=== PATIENT | male | born 1975 | race Caucasian/White ===

== ENCOUNTER 2018-09-04 19:04 | Inpatient (IN) | payer OTHER ==
[~2018-09-04] VITALS: Ht 167.6 cm; Wt 157.7 kg
[~2018-09-04 19:04] MED LIST: BENA40TA54 PO; GLYBURIDE; HYDROXYZINE; LORA-441 PO; MTF1000T PO; PARO10TA76 PO; ZOLP10TA5 PO; [UNRECOGNIZED DRUG - OTHER]
[2018-09-04] MEDS ORDERED: PIPER-TAZO 3.375 GM IV (PMX) 100 ML IVPB STA (19:38)
[2018-09-04] MEDS ORDERED: CLINDAMYCIN 900 MG/D5W (PMX) 50 ML IVPB STA (19:38)
[2018-09-04] MEDS ORDERED: VANCOMYCIN 1 GM (PMX) 250 ML IVPB STA (19:38)
[2018-09-04] MEDS ORDERED: SODIUM CHLORIDE 0.9% 1L BAG IV* STA (21:55)
--- NOTE | 2018-09-04 21:57 | ERD ---
ER Documentation Chief Complaint Chief Complaint right outer sole wound with increased drainage and redness. HPI Very pleasant 43-year-old gentleman history of diabetes who presents to the emergency room with progressive erythema warmth tenderness and swelling with draining wound to the lateral aspect of the right lower extremity and foot. The patient is currently being treated with oral antibiotics without improvement. He describes mild throbbing discomfort that is approximately 2 out of 10. 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 ROS All systems reviewed and are negative except as per history of present illness. Medications Home Meds Reported Medications Lorazepam* (Ativan*) 0.5 Mg Tablet, 0.5 MG PO PRN 02/16/13 [Levotheroxide] No Conflict Check, 50 MCG 11/18/12 Benazepril Hcl* (Lotensin*) 40 Mg Tablet, 40 MG PO DAILY 11/18/12 [Glyburide] No Conflict Check, 5 MG DAILY 11/18/12 Metformin* (Glucophage*) 1,000 Mg Tablet, 1000 MG PO DAILY 11/18/12 [Hydroxyzine] No Conflict Check, 25 MG HS 11/18/12 Zolpidem Tartrate* (Zolpidem Tartrate*) 10 Mg Tablet, 10 MG PO HS 11/18/12 Paroxetine Hcl* (Paroxetine*) 10 Mg Tablet, 10 MG PO HS 11/18/12 Allergies Allergies: Coded Allergies: gabapentin (Verified Allergy, Severe, SUICIDAL THOUGHS, 02/16/13) morphine (Verified Allergy, Intermediate, 02/16/13) pregabalin (Verified Allergy, Mild, SUICIDAL, 02/16/13) Uncoded Allergies: LYRICA (Allergy, Intermediate, WEIGHT GAIN, 01/01/13) TEGAMYCEIN (Allergy, Mild, 11/18/12) TEGAMYCIN (Allergy, 02/16/13) PMhx/Soc History of Surgery: Yes (TONSILLECTOMY, BILAT FOOT.) Anesthesia Reaction: Yes (MUSCLE CRAMPS) Hx Neurological Disorder: Yes (NUROPATHY,) Hx Respiratory Disorders: No Hx Cardiac Disorders: No Hx Psychiatric Problems: No Hx Miscellaneous Medical Probl: Yes (DM) Hx Alcohol Use: No Hx Substance Use: No Hx Tobacco Use: No Smoking Status: Never smoker FmHx Family History: No diabetes Physical Exam Vitals Vital Signs Date Temp Pulse Resp B/P (MAP) Pulse Ox O2 O2 Flow FiO2 Time Delivery Rate 09/04/18 99.9 105 18 139/76 98 19:09 (97) Physical Exam General: Well developed, well nourished, no acute distress Head: Normocephalic, atraumatic. Eyes: Pupils equally reactive, EOM intact ENT: Moist mucous membranes Neck: Supple, no lymphadenopathy Respiratory: Lungs clear bilaterally, no distress Cardiovascular: RRR, no murmurs, rubs, or gallops Abdominal: Soft, non-tender, non-distended, no peritoneal signs : Deferred MSK: Right foot is edematous with erythema warmth and tenderness without crepitus, draining wound to the right lateral aspect of the foot. 5/5 strength Neurologic: Alert and oriented, moving all extremities, normal speech, no focal weakness, no cerebellar signs Skin: As noted above Psych: Normal mood Result Diagram: 09/04/18204009/04/182040 Results 24 hrs Laboratory Tests Test 09/04/18 20:37 09/04/18 20:41 POC Venous Lactate 1.3 mmol/L White Blood Count 18.8 10^3/ul Red Blood Count 4.84 10^6/ul Hemoglobin 11.0 g/dl Hematocrit 37.0 % Mean Corpuscular Volume 76.4 fl Mean Corpuscular Hemoglobin 22.7 pg Mean Corpuscular Hemoglobin Concent 29.7 g/dl Red Cell Distribution Width 15.1 % Platelet Count 275 10^3/UL Mean Platelet Volume 14.0 fl Immature Granulocytes % 0.600 % Neutrophils % 84.8 % Lymphocytes % 8.0 % Monocytes % 5.9 % Eosinophils % 0.5 % Basophils % 0.2 % Nucleated Red Blood Cells % 0.0 /100WBC Immature Granulocytes # 0.120 10^3/ul Neutrophils # 15.9 10^3/ul Lymphocytes # 1.5 10^3/ul Monocytes # 1.1 10^3/ul Eosinophils # 0.1 10^3/ul Basophils # 0.0 10^3/ul Nucleated Red Blood Cells # 0.0 10^3/ul Prothrombin Time 15.5 Sec Prothrombin Time Ratio 1.2 INR International Normalized Ratio 1.22 Activated Partial Thromboplast Time 41.2 Sec Sodium Level 134 mmol/L Potassium Level 4.2 mmol/L Chloride Level 98 mmol/L Carbon Dioxide Level 25 mmol/L Anion Gap 11 Blood Urea Nitrogen 37 mg/dl Creatinine 1.49 mg/dl Est Glomerular Filtrat Rate mL/min 51 mL/min Glucose Level 228 mg/dl Calcium Level 9.3 mg/dl C-Reactive Protein 21.1 mg/dl Current Medications Medications Dose Sig/Jessica Start Time Status Last (Trade) Ordered Route PRN Stop Time Admin Dose Reason Admin Vancomycin 250 ml @ ONCE STAT 09/04/18 DC HCl 125 mls/hr IVPB 19:38 09/04/18 21:37 Clindamycin 50 ml @ 50 ONCE STAT 09/04/18 DC 09/04/18 HCl/ mls/hr IVPB 19:38 21:24 Dextrose 09/04/18 20:37 Piperacillin 100 ml @ ONCE STAT 09/04/18 DC 09/04/18 Sod/ 200 mls/hr IVPB 19:38 20:45 Tazobactam 09/04/18 20:07 Sod Ondansetron 4 mg BRIDGE ORDER 09/04/18 HCl (Zofran PRN IV 22:00 Inj) NAUSEA/VOMITI 09/05/18 21:59 NG 650 mg ER BRIDGE 09/04/18 Acetaminophen PRN PO 22:00 (Tylenol .MILD PAIN 09/05/18 21:59 Tab) 1-3 OR TEMP Sodium 1,910 ml BOLUS OVER 2 09/04/18 UNV Chloride HOURS STAT 21:55 (NS) IV* 09/04/18 21:56 Procedures/MDM EKG, MONITORS, & DIAGNOSTIC IMAGING: EKG: I reviewed and interpreted a 12-lead EKG. Rhythm: ST ST Changes: No contiguous ST segment elevations T waves: No contiguous T wave inversions Impression: No evidence of acute cardiac ischemia X-ray right foot: Formal read pending LAB INTERPRETATION: I reviewed the laboratory testing and it shows leukocytosis, elevated CRP, normal lactic acid, hyperglycemia without evidence of diabetic ketoacidosis, mild renal insufficiency MEDICAL DECISION MAKING: Patient presents with what appears to be failure of outpatient oral therapy for an infected right foot diabetic foot ulcer. Screening for osteomyelitis is necessary. ER COURSE: * The patient presents with failure of outpatient antibiotic therapy. The patient had blood cultures prior to antibiotics. * The patient was noted to have elevated white count therefore qualifying for sepsis. For IV fluids provided at that point. He is him dynamically stable. CONSULTATION: None DISPOSITION PLAN: Accepting care team and consultations: I discussed the current laboratory data, diagnostic imaging and emergency care provided. Admitting team: Dr. Islas Admitting team indication: Insurance directed Sepsis Documentation: Patient's infectious symptoms have not stabilized and the patient is at risk of rapid decompensation. The patient will be admitted for careful hydration, antibiotic therapy, and infectious source control. SEVERE SEPSIS CRITERIA: Infectious source: Right foot diabetic wound End organ damage indicated by: SEPSIS MANAGEMENT Time of recognition of sepsis: 2104 with CBC result. Time of recognition of severe sepsis: No severe sepsis at this time. Time of recognition of septic shock: No septic shock at this time. 3 HOUR BUNDLE Blood cultures x 2 before broad-spectrum antibiotics: Yes 30 ml/kg NS bolus initiated Initial lactate less than 2 Repeat lactate pending SEPTIC SHOCK ASSESSMENT: No lactic acid > 4.0 No persistent hypotension (SBP < 90 or 40 mmHg drop, MAP < 65) despite 30 mL/kg IV fluid bolus VOLUME REASSESSMENT FOR SEPTIC SHOCK: The patient does not meet criteria for septic shock in the emergency department at this time PERSISTENT HYPOTENSION TREATMENT: Comfort care no Central line not Required Vasopressor started not required I considered further perfusion assessment with CVP measurement, SCVO2, bedside ultrasound volume assessment, passive leg raise, trial of further fluid bolus. And proceeded with 30 ml/kg fluid bolus of NSS, broad spectrum antibiotics, and admission. CRITICAL CARE Critical care time 35 minutes Emergent fluid management while maintaining close respiratory support. Provision of immediate and broad-spectrum antibiotic therapy. Simultaneous assessment for possible sources in order to direct targeted therapy. Consideration for invasive and chemical support to prevent cardiopulmonary collapse. Critical care time is independent of procedures performed. Departure Diagnosis: Primary Impression: Diabetic ulcer of right foot Diabetic foot ulcer location: midfoot Diabetes mellitus type: type 2 Non- pressure ulcer stage: unspecified non-pressure ulcer stage Qualified Codes: E11.621 - Type 2 diabetes mellitus with foot ulcer; L97.419 - Non-pressure chronic ulcer of right heel and midfoot with unspecified severity Additional Impressions: Sepsis Sepsis type: sepsis due to unspecified organism Qualified Codes: A41.9 - Sepsis, unspecified organism Acute renal insufficiency Hyperglycemia Condition: Stable SVITLANA WEBSTER MD Sep 04, 2018 21:57
[2018-09-04] MEDS ORDERED: ONDANSETRON 4 MG INJ IV PRN ×2 (22:00→23:30)
[2018-09-04] MEDS ORDERED: ACETAMINOPHEN 325 MG TAB PO PRN ×2 (22:00→23:30)
[2018-09-04 23:00] VITALS: BP 98/60; PULSE 104; RESP 18
[2018-09-04] MEDS ORDERED: LORA1TAB PO (23:02)
[2018-09-04] MEDS ORDERED: RIVA20TA5 PO (23:02)
[2018-09-04] MEDS ORDERED: SITA100T11 PO (23:02)
[2018-09-04] MEDS ORDERED: DULO60CA6 PO (23:02)
[2018-09-04] MEDS ORDERED: LEVO50TA7 PO (23:02)
[2018-09-04] MEDS ORDERED: LISI-471 PO (23:02)
[2018-09-04] MEDS ORDERED: CIPR500T4 PO (23:02)
[2018-09-04] MEDS ORDERED: NOVO3I SC (23:02)
[2018-09-04] MEDS ORDERED: CEPH500C PO (23:02)
[2018-09-04] MEDS ORDERED: INSU100I33 SC (23:02)
[2018-09-04 23:07] VITALS: Ht 167.6 cm; Wt 157.7 kg
[2018-09-04] MEDS ORDERED: TEST5GEL TD (23:07)
[2018-09-04] MEDS ORDERED: TEST2.5G5 TD (23:07)
--- NOTE | 2018-09-04 23:26 | HP ---
Date/Time of Note Date/Time of Note DATE: 09/04/18 TIME: 23:26 Assessment/Plan VTE Prophylaxis Pharmacological prophylaxis: heparin Lines/Catheters IV Catheter Type (from Nrsg): Saline Lock Assessment/Plan Assessment/Plan 1. Bilateral foot infection, right worse than left -IV antibiotic -Follow-up podiatry recommendations 2. Sepsis: As evidenced by leukocytosis and tachycardia: Secondary to above -Continue antibiotic, follow-up culture results. Podiatry following 3. Hypertension: Continue meds. Adjust as needed 4. Diabetes: Continue meds 5. Depression: Continue Cymbalta 6. Hypothyroidism: Synthroid 7. Acute renal insufficiency: Continue IV fluid. Expect improvement in a.m., otherwise renal ultrasound and nephrology consult as well as urine electrolytes Result Diagram: 09/04/18204009/04/182040 Results 24hrs Laboratory Tests Test 09/04/18 20:37 09/04/18 20:41 09/04/18 22:32 POC Venous Lactate 1.3 White Blood Count 18.8 H Red Blood Count 4.84 Hemoglobin 11.0 L Hematocrit 37.0 L Mean Corpuscular Volume 76.4 L Mean Corpuscular Hemoglobin 22.7 L Mean Corpuscular Hemoglobin Concent 29.7 L Red Cell Distribution Width 15.1 H Platelet Count 275 Mean Platelet Volume 14.0 H Immature Granulocytes % 0.600 H Neutrophils % 84.8 H Lymphocytes % 8.0 L Monocytes % 5.9 Eosinophils % 0.5 Basophils % 0.2 Nucleated Red Blood Cells % 0.0 Immature Granulocytes # 0.120 H Neutrophils # 15.9 H Lymphocytes # 1.5 Monocytes # 1.1 H Eosinophils # 0.1 Basophils # 0.0 Nucleated Red Blood Cells # 0.0 Erythrocyte Sedimentation Rate 58 H Prothrombin Time 15.5 H Prothrombin Time Ratio 1.2 INR International Normalized Ratio 1.22 Activated Partial Thromboplast Time 41.2 H Sodium Level 134 L Potassium Level 4.2 Chloride Level 98 Carbon Dioxide Level 25 Anion Gap 11 Blood Urea Nitrogen 37 H Creatinine 1.49 H Est Glomerular Filtrat Rate mL/min 51 L Glucose Level 228 H Calcium Level 9.3 C-Reactive Protein 21.1 H Lactic Acid Level 1.5 HPI/ROS Admit Date/Time Admit Date/Time Hx of Present Illness This is a 43-year-old male with a history of hypertension, diabetes, hypothyroidism, bilateral foot ulcer with a history of right foot debridement and skin graft. Patient presented to ER complaining of worsening right foot ulcer. He reports that wound has been draining pus. He said he follows up closely with his recreational sports director, Dr. Lunsford. In the ER, x-ray shows the followin. 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 2. Possible ulcers at the plantar aspect of the foot as described. Negative for evidence of aggressive bony destruction or periosteal reaction to indicate acute osteomyelitis. 3. Soft tissue swelling without soft tissue gas may be due to soft tissue infection in the appropriate clinical setting. PMH/Family/Social Past Medical History Past Surgical Hx: other (see hpi) Family History Significant Family History: no pertinent family hx Social History Alcohol Use: none Smoking Status: Never smoker Drug Use: none Exam Constitutional: other (no acute distress) Neck: supple, non-tender Respiratory: normal air movement Cardiovascular: nl pulses Gastrointestinal: soft Extremities: normal pulses Medications Current Medications Ondansetron HCl (Zofran Inj) 4 mg BRIDGE ORDER PRN IV NAUSEA/VOMITING; Start 09/04/18 at 22:00; Stop 09/05/18 at 21:59 Acetaminophen (Tylenol Tab) 650 mg ER BRIDGE PRN PO .MILD PAIN 1-3 OR TEMP; Start 09/04/18 at 22:00; Stop 09/05/18 at 21:59 Coded Allergies: gabapentin (Verified Allergy, Severe, SUICIDAL THOUGHS, 02/16/13) morphine (Verified Allergy, Intermediate, 02/16/13) pregabalin (Verified Allergy, Mild, SUICIDAL, 02/16/13) Uncoded Allergies: LYRICA (Allergy, Intermediate, WEIGHT GAIN, 01/01/13) TEGAMYCEIN (Allergy, Mild, 11/18/12) TEGAMYCIN (Allergy, Unknown, 09/04/18) Social History Smoking Status: Never smoker Exam/Review of Systems Vital Signs Vitals Vital Signs Date Temp Pulse Resp B/P (MAP) Pulse Ox O2 O2 Flow FiO2 Time Delivery Rate 09/04/18 99.5 101 19 140/98 98 Room Air 22:24 (112) NELY CAAL MD Sep 04, 2018 23:26
[2018-09-04] MEDS ORDERED: NACL 0.9% 3 ML SYG IV SCH (23:30)
[2018-09-04] MEDS ORDERED: ALBUTEROL/IPRATROPIUM (NEB) 3 ML AMP HHN PRN (23:30)
[2018-09-04] MEDS ORDERED: HYDROCODONE/APAP (5/325) TAB PO PRN ×2 (23:30)
[2018-09-04] MEDS ORDERED: VANCOMYCIN IV PER PHARMACY XX SCH (23:30)
[2018-09-05] MEDS ORDERED: VANCOMYCIN 1 GM 250 ML IVPB ONE (00:30)
[2018-09-05] MEDS: DULOXETINE 30 MG CAP DR PO SCH ×2 (02:04→22:42)
[2018-09-05] MEDS: ZOLPIDEM 5 MG TAB PO SCH ×2 (02:04→22:42)
[2018-09-05] MEDS: SOD CHLORIDE 0.9% 1,000 ML IV SCH ×3 (02:05→22:53)
[2018-09-05 02:18] VITALS: BP 103/58; PULSE 95; RESP 17
[2018-09-05] MEDS: LORAZEPAM 1 MG TAB PO SCH ×2 (05:07→23:16)
[2018-09-05] MEDS ORDERED: GLUCAGON 1 MG INJ IM PRN (05:30)
[2018-09-05] MEDS ORDERED: GLUCOSE GEL 15 GRAM TUBE BUCCAL PRN (05:30)
[2018-09-05] MEDS ORDERED: DEXTROSE 50% 50 ML SYRINGE IV PRN ×2 (05:30)
[2018-09-05] MEDS ORDERED: GLUCOSE GEL 15 GRAM TUBE PO PRN ×2 (05:30)
[2018-09-05 07:35] VITALS: BP 116/75; PULSE 96; RESP 18
[2018-09-05] MEDS ORDERED: INSULIN GLARGINE [LANTus] (100 UNITS/ML) SYG SC SCH (08:00)
[2018-09-05] MEDS: LINAGLIPTIN 5 MG TABLET PO SCH (08:07)
[2018-09-05] MEDS: CEFEPIME 1GM/50 ML (PMX) 50 ML IVPB SCH ×2 (08:07→21:19)
[2018-09-05] MEDS: LISINOPRIL 20 MG TAB PO SCH (08:08)
[2018-09-05] MEDS: INSULIN ASPART [NOVOLOG] 3 ML PEN SC SCH ×7 (08:10→21:22)
--- NOTE | 2018-09-05 08:26 | CONS ---
DATE OF ADMISSION: 09/04/2018 DATE OF CONSULTATION: 09/05/2018 CHIEF COMPLAINT: Right foot infection. HISTORY OF PRESENT ILLNESS: This is a 43-year-old gentleman with infection to the right foot. He wa s advised to present to the emergency room after failing more antibiotics. He had been on Keflex and ciprofloxacin. He had the presence of fevers. He has a chronic Charcot foot deformity bilateral fee t. History of recurring foot ulceration and has had prior partial amputation of toes. REVIEW OF SYSTEMS: The patient denies any fever, nausea, vomiting. PAST MEDICAL HISTORY: Includes: 1. Diabetes with peripheral neuropathy. 2. Cellulitis. 3. Diabetic foot ulceration. 4. Charcot deformity, bilateral feet and right ankle. This is post-fusion status, left foot. PAST SURGICAL HISTORY: Right fifth metatarsal partial resection, left fifth toe amputation, triple a rthrodesis, left foot. ALLERGIES: 1. GABAPENTIN. 2. MORPHINE. 3. PREGABALIN. 4. LYRICA. SOCIAL HISTORY: Denies any tobacco or alcohol use. FAMILY HISTORY: Denies any diabetes. PHYSICAL EXAMINATION: VITAL SIGNS: Temperature is 98.5, pulse is 95, respiratory rate 17, blood pressure is 103/58, pulse ox is 95%. GENERAL: The patient is alert and oriented, in no acute distress. Regular respiration. Obese. EXTREMITIES: Has a left foot Charcot deformity, plantar ulceration is nearly healed with presence of plantar foot callus, metadductus left foot deformity, right foot with a Charcot foot deformity with ulceration x2 plantar aspect with tracking. There is sanguineous drainage. Wound cultures have been obtained. The patient has localized erythema surrounding the ulceration. No malodor. There is bhakti n. There is 2+ DP, PT pulse bilateral feet. LABORATORIES: WBC 12.6, hemoglobin is 10.6, hematocrit 36.4, platelets 247. Sed rate is 58. Sodium 134, potassium 4.2, chloride 90, CO2 of 25, BUN 37, creatinine 1.49. C-reactive protein 21.1. X-ra ys marked deformity hypertrophic neuropathic joint, hind food, mid foot Lisfranc's joint and no evide nce of bony destruction, periosteal reaction, soft tissue swelling without soft tissue gas. ASSESSMENT: 1. Right foot cellulitis. 2. Right foot edema. 3. Pain. 4. Charcot deformity, bilateral feet. 5. Diabetes type 2 with hyperglycemia. 6. Obesity. PLAN: The patient initiated on vancomycin, cefepime and Zosyn. Obtain wound cultures, wound irrigat ion b.i.d. with Betadine and application of Bactroban and gentamicin ointment alternating. Will lupillo tor. Currently, white count and edema appear to be resolving. If continues, no surgery planned. Co ntinue tight glycemic control while in house. Await culture results. Dictated By: JOSÉ DE LA GARZA DPM RB/NTS Conf#: [id number] DID#: [id number] CC: NELY CAAL MD;*EndCC*
[2018-09-05] MEDS ORDERED: NON-FORMULARY/PATIENT OWN MED (Sitagliptin* (Januvia*) 100 MG) PO SCH (09:00)
[2018-09-05] MEDS: VANCOMYCIN HCL 1.5 GM in SOD CHLORIDE 0.9% 250 ML IVPB SCH ×2 (09:47→22:48)
[2018-09-05] MEDS: MUPIROCIN 2% 22 GM OINT TOP SCH (09:53)
[2018-09-05] MEDS ORDERED: LIDOCAINE 1% (MPF) 5 ML VIAL SC ONE (12:30)
[2018-09-05] MEDS ORDERED: INSULIN ASPART [NOVOLOG] 3 ML PEN SC ONE (12:30)
--- NOTE | 2018-09-05 12:36 | PN ---
Date/Time of Note Date/Time of Note DATE: 09/05/18 TIME: 12:35 Assessment/Plan VTE Prophylaxis Risk score (from Nsg)>0 risk: 3 SCD applied (from Nsg): Yes Pharmacological prophylaxis: LMWH Lines/Catheters IV Catheter Type (from Nrs): Peripheral IV Urinary Cath still in place: No Assessment/Plan Hospital Course SUBJECTIVE:Doing well...No acute distress.. no fevers or chills overnight. OBJECTIVE: Vital signs-see below PHYSICAL EXAM: Constitutional:obese male, not in acute distress. HEENT: Head atraumatic and normocephalic. Eyes: Extraocular muscles intact. Anicteric sclerae. Pupils equal bilaterally, reactive to light. NECK: Supple without lymph node. CHEST: Clear and good breath sounds equally. No wheezing. No rhonchi. HEART: S1, S2. Regular rate and rhythm. ABDOMEN: Soft, nontender. Bowel sounds were present. EXTREMITIES: jose charcot foot. Bilateral foot ulcres, covered w/dressing-c/d/i-no ozzing noted outside. no focal defecit. No cyanosis, clubbing or edema. NEUROLOGIC: Alert and oriented x3. No focal deficit. No sensory deficit. PSYCHOSOCIAL: In a good mood. No signs of depression. INTEGUMENTARY: Moist mucous membranes. Good skin turgor, intact. ASSESSMENT AND PLAN: 43-year-old obese male with history of diabetes, bilateral Charcot deformities, chronic bilateral foot ulcers, DVT,who was advised by his information clerk cashier to get admitted for inpatient workup for worsening Right foot ulcer, failed outpatient antibiotics, also found to have sepsis. 1. Nonhealing right diabetic foot ulcer, failed outpatient antibiotics -Cardiology following and we will follow-up recommendations. Proceed with a PICC line in anticipation for long-term IV antibiotics in light of patient with failed outpatient oral antibiotic regimen. -ID consult -Continue broad-spectrum antimicrobial and follow-up cultures. -Wound care as instructed by information clerk cashier. 2. Sepsis secondary to #1. -Treatment as above. Follow-up cultures. 3. Type 2 diabetes, poorly controlled -Diabetic education. Uptitrate insulin regimen for adequate glycemic control. 4. Left foot ulcer, nearly healed -Continue monitoring. 5. Anemia, likely iron deficient plus chronic inflammation. -Stable H&H, does not require transfusion of blood products at present. We will also obtain iron panel regardless. 6. Essential hypertension. -Continue lisinopril. good control. 7. Depression -On Cymbalta 8. Hypothyroidism -On Synthroid. 9. Hx DVT left leg -According to patient, this was diagnosed 4 years ago and he has been taking anticoagulation since then. At this time, I recommend obtaining ultrasound to check for any blood clot to see whether patient needs to be anticoagulated or not. -For now, we will continue with Xarelto. DVT prophylaxis:Xeralto PUD prophylaxis: Not indicated Disposition: Continue current management. Continue wound care and follow-up podiatry recommendations. Patient was seen in collaboration with Dr. Whittaker. Result Diagram: 09/05/1861209/[id number]/18612 Results 24hrs Laboratory Tests Test 09/04/18 20:37 09/04/18 20:41 09/04/18 22:32 09/05/18 06:13 POC Venous Lactate 1.3 White Blood Count 18.8 H 12.6 #H Red Blood Count 4.84 4.69 L Hemoglobin 11.0 L 10.6 L Hematocrit 37.0 L 36.4 L Mean Corpuscular 76.4 L 77.6 L Volume Mean Corpuscular 22.7 L 22.6 L Hemoglobin Mean Corpuscular 29.7 L 29.1 L Hemoglobin Concent Red Cell 15.1 H 15.1 H Distribution Width Platelet Count 275 247 Mean Platelet Volume 14.0 H 13.2 H Immature 0.600 H 0.700 H Granulocytes % Neutrophils % 84.8 H 83.5 H Lymphocytes % 8.0 L 9.4 L Monocytes % 5.9 5.5 Eosinophils % 0.5 0.6 Basophils % 0.2 0.3 Nucleated Red Blood 0.0 0.0 Cells % Immature 0.120 H 0.090 H Granulocytes # Neutrophils # 15.9 H 10.5 H Lymphocytes # 1.5 1.2 Monocytes # 1.1 H 0.7 Eosinophils # 0.1 0.1 Basophils # 0.0 0.0 Nucleated Red Blood 0.0 0.0 Cells # Erythrocyte 58 H Sedimentation Rate Prothrombin Time 15.5 H Prothrombin Time 1.2 Ratio INR International 1.22 Normalized Ratio Activated 41.2 H Partial Thromboplast Time Sodium Level 134 L 138 Potassium Level 4.2 4.4 Chloride Level 98 101 Carbon Dioxide Level 25 25 Anion Gap 11 12 Blood Urea Nitrogen 37 H 32 H Creatinine 1.49 H 1.11 Est Glomerular 51 L > 60 Filtrat Rate mL/min Glucose Level 228 H 223 H Calcium Level 9.3 8.4 C-Reactive Protein 21.1 H Lactic Acid Level 1.5 1.0 Hemoglobin A1c 8.9 H Phosphorus Level 4.1 Magnesium Level 1.7 Total Bilirubin 0.6 Direct Bilirubin 0.00 Indirect Bilirubin 0.6 Aspartate Amino 22 Transf (AST/SGOT) Alanine 25 Aminotransferase (AL T/SGPT) Alkaline Phosphatase 84 Total Protein 6.0 L Albumin 3.1 L Globulin 2.90 Albumin/Globulin 1.06 Ratio Triglycerides Level 117 Cholesterol Level 116 LDL Cholesterol, 66 Calculated HDL Cholesterol 27 Cholesterol/HDL 4.2 Ratio Test 09/05/18 08:04 09/05/18 11:57 Bedside Glucose 239 H 259 H Exam/Review of Systems Exam Vitals Vital Signs Date Temp Pulse Resp B/P (MAP) Pulse Ox O2 O2 Flow FiO2 Time Delivery Rate 09/05/18 97.7 96 18 116/75 97 Room Air 07:35 (89) Intake and Output 09/04/18 09/04/18 09/05/18 1515:00 23:00 07:00 IntakeIntake Total 580 ml BalanceBalance 580 ml Results Results 24hrs Laboratory Tests Test 09/04/18 20:37 09/04/18 20:41 09/04/18 22:32 09/05/18 06:13 POC Venous Lactate 1.3 White Blood Count 18.8 H 12.6 #H Red Blood Count 4.84 4.69 L Hemoglobin 11.0 L 10.6 L Hematocrit 37.0 L 36.4 L Mean Corpuscular 76.4 L 77.6 L Volume Mean Corpuscular 22.7 L 22.6 L Hemoglobin Mean Corpuscular 29.7 L 29.1 L Hemoglobin Concent Red Cell 15.1 H 15.1 H Distribution Width Platelet Count 275 247 Mean Platelet Volume 14.0 H 13.2 H Immature 0.600 H 0.700 H Granulocytes % Neutrophils % 84.8 H 83.5 H Lymphocytes % 8.0 L 9.4 L Monocytes % 5.9 5.5 Eosinophils % 0.5 0.6 Basophils % 0.2 0.3 Nucleated Red Blood 0.0 0.0 Cells % Immature 0.120 H 0.090 H Granulocytes # Neutrophils # 15.9 H 10.5 H Lymphocytes # 1.5 1.2 Monocytes # 1.1 H 0.7 Eosinophils # 0.1 0.1 Basophils # 0.0 0.0 Nucleated Red Blood 0.0 0.0 Cells # Erythrocyte 58 H Sedimentation Rate Prothrombin Time 15.5 H Prothrombin Time 1.2 Ratio INR International 1.22 Normalized Ratio Activated 41.2 H Partial Thromboplast Time Sodium Level 134 L 138 Potassium Level 4.2 4.4 Chloride Level 98 101 Carbon Dioxide Level 25 25 Anion Gap 11 12 Blood Urea Nitrogen 37 H 32 H Creatinine 1.49 H 1.11 Est Glomerular 51 L > 60 Filtrat Rate mL/min Glucose Level 228 H 223 H Calcium Level 9.3 8.4 C-Reactive Protein 21.1 H Lactic Acid Level 1.5 1.0 Hemoglobin A1c 8.9 H Phosphorus Level 4.1 Magnesium Level 1.7 Total Bilirubin 0.6 Direct Bilirubin 0.00 Indirect Bilirubin 0.6 Aspartate Amino 22 Transf (AST/SGOT) Alanine 25 Aminotransferase (AL T/SGPT) Alkaline Phosphatase 84 Total Protein 6.0 L Albumin 3.1 L Globulin 2.90 Albumin/Globulin 1.06 Ratio Triglycerides Level 117 Cholesterol Level 116 LDL Cholesterol, 66 Calculated HDL Cholesterol 27 Cholesterol/HDL 4.2 Ratio Test 09/05/18 08:04 09/05/18 11:57 Bedside Glucose 239 H 259 H Medications Medication Current Medications Ondansetron HCl (Zofran Inj) 4 mg BRIDGE ORDER PRN IV NAUSEA/VOMITING; Start 09/04/18 at 22:00; Stop 09/05/18 at 21:59 Acetaminophen (Tylenol Tab) 650 mg ER BRIDGE PRN PO .MILD PAIN 1-3 OR TEMP; St art 09/04/18 at 22:00; Stop 09/05/18 at 21:59 Sodium Chloride 1,000 ml @ 80 mls/hr [id number] IV Last administered on 09/05/18at 02:05; Admin Dose 80 MLS/HR; Start 09/04/18 at 23:17; Stop 09/05/18 at 23:00 IV Flush (NS 3 ml) 3 ml PER PROTOCOL IV ; Start 09/04/18 at 23:30 Ondansetron HCl (Zofran Inj) 4 mg Q6H PRN IV NAUSEA/VOMITING; Start 09/04/18 at 23:30 Acetaminophen (Tylenol Tab) 650 mg Q6H PRN PO .PAIN 1-3 OR TEMP Last administered on 09/05/18 09:53; Admin Dose 650 MG; Start 09/04/18 at 23:30 Acetaminophen/ Hydrocodone Bitart ([place]ixon (5/325)) 1 tab Q6H PRN PO .MOD PAIN 4- 6; Start 09/04/18 at 23:30 Acetaminophen/ Hydrocodone Bitart (Dixon (5/325)) 2 tab Q6H PRN PO .SEVERE PAIN 7-10; Start 09/04/18 at 23:30 Albuterol/ Ipratropium (Duoneb) 3 ml Q2H RESP THERAPY PRN HHN SHORTNESS OF JOSUE TH; Start 09/04/18 at 23:30 Lisinopril (Zestril) 20 mg DAILY PO Last administered on 09/05/18at 08:08; Admin Dose 20 MG; Start 09/05/18 at 09:00 Rivaroxaban (Xarelto) 20 mg WITH DINNER PO ; Start 09/05/18 at 18:05 Cefepime HCl 50 ml @ 100 mls/hr Q12 IVPB Last administered on 09/05/18 08:07; Admin Dose 100 MLS/HR; Start 09/05/18 at 09:00 Vancomycin HCl (Vanco Iv Per Pharmacy) VANCOMYCIN PER PHARMACY PER PROTOCOL XX ; Start 09/04/18 at 23:30 Linagliptin (Tradjenta) 5 mg DAILY PO Last administered on 09/05/18 08:07; Admin Dose 5 MG; Start 09/05/18 at 09:00 Vancomycin HCl 1.5 gm/Sodium Chloride 250 ml @ 83.333 mls/ hr Q12H IVPB Last administered on 09/05/18 09:47; Admin Dose 83.333 MLS/HR; Start 09/05/18 at 10:00 Duloxetine HCl (Cymbalta) 60 mg HS PO Last administered on 09/05/18 02:04; Admin Dose 60 MG; Start 09/05/18 at 01:00 Lorazepam (Ativan) 1 mg QHS PO Last administered on 09/05/18 05:07; Admin Dose 1 MG; Start 09/05/18 at 01:00 Zolpidem Tartrate (Ambien) 10 mg HS PO Last administered on 09/05/18at 02:04; Admin Dose 10 MG; Start 09/05/18 at 01:00 Diagnostic Test (Pha) (Accu-Chek) 1 ea 02 XX ; Start 09/06/18 at 02:00 Insulin Glargine (Lantus) 32 units DAILY@0800 SC Last administered on 09/05/18at 08:10; Admin Dose 32 UNITS; Start 09/05/18 at 08:00 Insulin Aspart (Novolog Insulin Pen) 11 unit WITH MEALS SC Last administered on 09/05/18at 11:59; Admin Dose 11 UNIT; Start 09/05/18 at 07:35 Insulin Aspart (Novolog Insulin Pen) NOVOLOG *MODERATE* ALGORITHM WITH MEALS BEDTIME SC Last administered on 09/05/18at 12:00; Admin Dose 6 UNIT; Start 09/05/18 at 08:00 Miscellaneous Information 1 ea NOTE XX ; Start 09/05/18 at 05:30 Glucose (Glutose) 15 gm Q15M PRN PO DECREASED GLUCOSE; Start 09/05/18 at 05:30 Glucose (Glutose) 22.5 gm Q15M PRN PO DECREASED GLUCOSE; Start 09/05/18 at 05:30 Dextrose (D50w Syringe) 25 ml Q15M PRN IV DECREASED GLUCOSE; Start 09/05/18 at 05:30 Dextrose (D50w Syringe) 50 ml Q15M PRN IV DECREASED GLUCOSE; Start 09/05/18 at 05:30 Glucagon (Glucagen) 1 mg Q15M PRN IM DECREASED GLUCOSE; Start 09/05/18 at 05:30 Glucose (Glutose) 15 gm Q15M PRN BUCCAL DECREASED GLUCOSE; Start 09/05/18 at 05:30 Mupirocin (Bactroban) 1 applic DAILY TOP Last administered on 09/05/18at 09:53; Admin Dose 1 APPLIC; Start 09/05/18 at 09:00 Gentamicin Sulfate (Gentamicin 0.1% Oint) 1 applic QPM TOP ; Start 09/05/18 at 21:00 ANDREW ISABEL NP Sep 05, 2018 12:36
[2018-09-05] MEDS ORDERED: ENOXAPARIN 40 MG/0.4 ML SYG SC SCH (13:00)
[2018-09-05] MEDS ORDERED: INSULIN GLARGINE [LANTus] (100 UNITS/ML) SYG SC ONE (13:00)
--- NOTE | 2018-09-05 13:22 | CONS ---
DATE OF ADMISSION: 09/04/2018 DATE OF CONSULTATION: 09/05/2018 TYPE OF CONSULTATION: Nephrology. REASON FOR CONSULTATION: Acute kidney injury. REQUESTING PHYSICIAN: Dr. Caal. HISTORY OF PRESENT ILLNESS: This is a 43-year-old male with a past medical history of obesity, histo ry of anxiety disorder, history of hypertension, history of diabetes, history of insomnia who present s to [facility] due to wound in his right lower extremity. The patient states that he has had progressive erythema, tenderness and swelling and drainage on the lateral aspect of the r ight foot. The patient was being treated with oral antibiotics without improvement. As a result, he came to the emergency room and was subsequently admitted to [facility]. In terms of patient's renal history, on admission the patient noted to have a creatinine of 1.49, a B UN of 37. The patient states that he never had a prior history of CKD or acute kidney injury. The p atient describes diminished urinary output. The patient was started on IV fluid, antibiotic therapy. The patient denies any hemoptysis, hematemesis or hematochezia. PAST MEDICAL HISTORY: As stated above, history of diabetes, depression, hypothyroidism, hypertension , history of obesity. PAST SURGICAL HISTORY: Has been reviewed. The patient had tonsillectomy, bilateral foot surgery. FAMILY HISTORY: No family history of kidney disease. SOCIAL HISTORY: Does not drink, smoke or do drugs. MEDICATIONS: The patient's medications have been reviewed. ALLERGIES: Have been reviewed. REVIEW OF SYSTEMS: A 14-point review of systems conducted. Pertinent positives stated in HPI, other lam negative. PHYSICAL EXAMINATION: VITAL SIGNS: Blood pressure is 116/75, respirations 18, pulse 96, temperature 97.7. HEENT: Normocephalic. NECK: Supple. HEART: Regular rate. LUNGS: Show diminished breath sounds at the base. ABDOMEN: Soft, nontender to palpation. No rebound or guarding. EXTREMITIES: Negative for clubbing, cyanosis, no edema. DERMATOLOGIC: No rashes. MUSCULOSKELETAL: The patient has noted Charcot deformity and plantar ulceration of the right foot. NEUROLOGIC: No focal deficits. LABORATORY DATA: Shows white count 12.6, hemoglobin 10.6, platelet count is 246. The patient's BUN is 32, creatinine 1.11. IMAGING STUDIES: Reviewed. ASSESSMENT AND PLAN: This is a 43-year-old male who presents with: 1. Nonoliguric acute kidney injury with a previous baseline creatinine of 1.0 mg/dL. Etiology of ac [place] kidney injury is likely secondary to hemodynamics, possible sepsis, possible RUSSELL inhibitor effect . The patient's renal function has improved with IV hydration. Plan at this point would be to check UA with microanalysis, check urine electrolytes. Will continue antibiotic therapy. Continue suppor tive care, renally dose all meds. Continue to monitor renal function closely on RUSSELL inhibitor. 2. Anemia, likely of chronic disease. Monitor hemoglobin and hematocrit levels. Consider checking iron panel. 3. Mineral bone disorder. Monitor calcium and phosphorus levels. 4. Sepsis secondary to right foot infection. Continue current antibiotic regimen. Follow up cultur es. Follow up with podiatry. 5. Charcot foot with plantar ulceration. Follow up with podiatry. Continue wound care. 6. Diabetes. Continue current insulin regimen. 7. Hypertension. Continue current blood pressure regimen. Monitor renal function closely on RUSSELL in hibitor. 9. Hyperthyroidism. Continue Synthroid. Thank you, Dr. Caal, for this interesting consult. It will be a pleasure to follow the patient with you throughout the hospital course. Dictated By: JANNIE ESPINOSA DO NR/NTS Conf#: [id number] DID#: [id number] CC: NELY CAAL MD;*End*
[2018-09-05 14:30] VITALS: BP 118/70; PULSE 76; RESP 18
--- NOTE | 2018-09-05 15:32 | CONS ---
DATE OF ADMISSION: 09/04/2018 DATE OF CONSULTATION: 09/05/2018 TYPE OF CONSULTATION: Infectious disease. REASON FOR CONSULTATION: Antibiotic management. HISTORY OF PRESENT ILLNESS: Thony Martini is a 43-year-old male with infection of his right foot. The patient has a history of diabetes mellitus who presents with progressive erythema, warmth and tendern ess and swelling with drainage of the wound to lateral aspect of the right lower extremity and foot. He is currently being treated with oral antibiotics without improvement. His oyster culler sent him to the emergency room. PAST SURGICAL HISTORY: Status post tonsillectomy, status post bilateral foot surgery. PAST MEDICAL HISTORY: He has a history of muscle cramps, history of neuropathy, diabetes mellitus. FAMILY HISTORY: Noncontributory. SOCIAL HISTORY: He does not smoke, drink or abuse drugs. ALLERGIES: NONE TO PENICILLIN, SULFA OR FOODS. THE PATIENT IS ALLERGIC TO: 1. LYRICA. 2. . 3. GABAPENTIN. 4. MORPHINE. 5. PREGABALIN. MEDICATIONS: Per chart. REVIEW OF SYSTEMS: As per HPI. PHYSICAL EXAMINATION: GENERAL: The patient is well-developed, well-nourished male who is awake, responsive, in no acute di stress. VITAL SIGNS: Stable. He is afebrile. SKIN: Without generalized rash. HEENT: Within normal limits. NECK: Supple. LYMPH NODES: None palpable. CHEST: Decreased breath sounds at the bases. HEART: Without murmur or gallop. ABDOMEN: Soft, nontender. EXTREMITIES: Right foot is edematous and erythematous, warm and tender without crepitus. There is a draining wound on the lateral aspect of the right foot. NEUROLOGIC: There are no other focal neurological abnormalities. ANCILLARY LABORATORY DATA: His white count on admission was 18.8 with 85% neutrophils, H and H of 11 and 37, platelet count 275,000. BUN and creatinine is 37/1.49, glucose is 228. HOSPITAL COURSE: The patient was seen by Dr. De La Garza in podiatry consultation. 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 He notes right foot cellulitis with edema, Charcot deformity, bilateral fee t, diabetes with hyperglycemia and obesity. The patient was started on vancomycin, cefepime and Zosy n. Wound cultures were obtained. The wound is irrigated. Currently, white count and edema are reso lving. If all resolved, no surgery is planned, we are awaiting the culture results. The patient is currently on vancomycin and cefepime. We will continue on current therapy. Dictated By: SUMEET CRUMP MD, JD/NTS Conf#: [id number] DID#: [id number] CC: NELY CAAL MD; JOSÉ DE LA GARZA DPM;*End*
[2018-09-05] MEDS: RIVAROXABAN 20 MG TABLET PO SCH (17:19)
[2018-09-05 20:20] VITALS: BP 116/67; PULSE 93; RESP 18
[2018-09-05] MEDS: GENTAMICIN 0.1% 15 GM OINT TOP SCH (21:21)
[2018-09-06] MEDS: ACCU-CHEK XX SCH (02:00)
[2018-09-06 02:18] VITALS: BP 111/56; PULSE 89; RESP 18
[2018-09-06 07:30] VITALS: BP 124/66; PULSE 81; RESP 17
[2018-09-06] MEDS: LINAGLIPTIN 5 MG TABLET PO SCH (08:11)
[2018-09-06] MEDS: CEFEPIME 1GM/50 ML (PMX) 50 ML IVPB SCH ×2 (08:11→20:51)
[2018-09-06] MEDS: INSULIN ASPART [NOVOLOG] 3 ML PEN SC SCH ×7 (08:13→21:00)
[2018-09-06] MEDS: INSULIN GLARGINE [LANTus] (100 UNITS/ML) SYG SC SCH (08:15)
[2018-09-06] MEDS: LISINOPRIL 20 MG TAB PO SCH (08:16)
[2018-09-06] MEDS: MUPIROCIN 2% 22 GM OINT TOP SCH (08:16)
--- NOTE | 2018-09-06 09:15 | PN ---
DATE: 09/06/2018 SUBJECTIVE: The patient is stable, no events noted. OBJECTIVE: VITAL SIGNS: Blood pressure is 124/66, pulse 81, respirations 17, temperature 98.0. HEENT: Head is normocephalic. NECK: Supple. HEART: Regular rate. LUNGS: Show diminished breath sounds at the base. ABDOMEN: Soft, nontender to palpation without rebound or guarding. EXTREMITIES: Negative for clubbing, cyanosis, no edema. DERMATOLOGIC: No rashes. MUSCULOSKELETAL: No joint effusions. No change in exam. The patient has noted Charcot deformity. NEUROLOGIC: No focal deficits. MEDICATIONS: The patient's medications have been reviewed. LABORATORY DATA: Has been reviewed. ASSESSMENT AND PLAN: 1. Nonoliguric acute kidney injury with previous baseline creatinine of 1.0 mg/dL. Etiology of MARTA is secondary to hemodynamics. Renal function is improved. At this point, will continue current liliana tment plan, supportive care, renally dose all meds. 2. Hypomagnesemia. Will replete with magnesium sulfate. 3. Hypertension. Continue current blood pressure regimen. Agree with RUSSELL inhibitor. 4. Sepsis secondary to lower foot infection. Continue antibiotic regimen. 5. Diabetes. Continue current insulin regimen. 6. Hypothyroidism. Continue Synthroid. Dictated By: JANNIE ESPINOSA DO NR/NTS Conf#: [id number] DID#: [id number] CC: JOSÉ DE LA GARZA DPM; NELY CAAL MD;*End*
[2018-09-06] MEDS ORDERED: MAGNESIUM SULFATE 2 GM/50 ML 50 ML IVPB ONE (10:00)
--- NOTE | 2018-09-06 10:08 | PN ---
Date/Time of Note Date/Time of Note DATE: 09/06/18 TIME: 10:03 Assessment/Plan VTE Prophylaxis Risk score (from Nsg)>0 risk: 3 SCD applied (from Nsg): Yes Pharmacological prophylaxis: rivaroxaban Lines/Catheters IV Catheter Type (from Nrsg): PICC Line Central line still needed: Yes Urinary Cath still in place: No Assessment/Plan Hospital Course SUBJECTIVE:Doing well...No acute distress.. no fevers or chills overnight. OBJECTIVE: Vital signs-see below PHYSICAL EXAM: Constitutional:obese male, not in acute distress. HEENT: Head atraumatic and normocephalic. Eyes: Extraocular muscles intact. Anicteric sclerae. Pupils equal bilaterally, reactive to light. NECK: Supple without lymph node. CHEST: Clear and good breath sounds equally. No wheezing. No rhonchi. HEART: S1, S2. Regular rate and rhythm. ABDOMEN: Soft, nontender. Bowel sounds were present. EXTREMITIES: jose charcot foot. Bilateral foot ulcres, covered w/dressing-c/d/i-no ozzing noted outside. no focal defecit. No cyanosis, clubbing or edema. NEUROLOGIC: Alert and oriented x3. No focal deficit. No sensory deficit. PSYCHOSOCIAL: In a good mood. No signs of depression. INTEGUMENTARY: Moist mucous membranes. Good skin turgor, intact. 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 1. Nonhealing right diabetic foot ulcer, failed outpatient antibiotics -Podiatry recommended IV antibiotics/ wound care. No plan for surgical intervention at this time. -Wound care: wound irrigation b.i.d. with Betadine and application of Bactroban and gentamicin ointment alternating -Broad Spectrum antimicrobials until CS available-ID managing -Glycemic control. 2. Sepsis secondary to #1. -Resolving nicely. We will follow-up cultures. So far blood cultures are negative. 3. Type 2 diabetes, poorly controlled -Diabetic education. -Glycemic trends improving. Will uptitrate for more control in light of infection. 4. Left foot ulcer, nearly healed -Continue monitoring. 5. Chronic iron deficient anemia along with inflammation. -Stable H&H, does not require transfusion of blood products at present. -We will give oral iron replacement. 6. Essential hypertension. -Continue lisinopril. good control. 7. Depression -On Cymbalta 8. Hypothyroidism -On Synthroid. 9. Hx DVT left leg -According to patient, this was diagnosed 4 years ago and he has been taking anticoagulation since then. There is no active DVTs at present. -Patient was previously recommended to continue Xarelto secondary to high risk for DVT, as such we will continue it. DVT prophylaxis:Xeralto PUD prophylaxis: Not indicated Disposition: Patient request discharge tomorrow. He needs IV antibiotic and his wound cultures are pending. At this time, I will have case management arrange home health for wound care and IV antimicrobial which will be determined by our ID colleagues once his wound cultures are available hopefully tomorrow. DC planning in 24-48 hours with IV antibiotics. Patient was seen in collaboration with Dr. Gusman Result Diagram: 09/06/18 0603 09/06/18 0604 Results 24hrs Laboratory Tests Test 09/05/18 11:57 09/05/18 12:30 09/05/18 17:13 09/05/18 21:17 Bedside Glucose 259 H 155 204 Urine Color STRAW Urine Clarity CLEAR Urine pH 6.0 Urine Specific 1.012 [place] Urine Ketones NEGATIVE Urine Nitrite NEGATIVE Urine Bilirubin NEGATIVE Urine Urobilinogen NEGATIVE Urine Leukocyte NEGATIVE Esterase Urine Hemoglobin NEGATIVE Urine Random 38.21 Creatinine Urine Random Sodium 76 Urine Glucose 2+ H Urine Total Protein 20.0 H Test 09/06/18 02:44 09/06/18 06:03 09/06/18 06:04 09/06/18 08:10 Bedside Glucose 196 193 White Blood Count 10.1 Red Blood Count 4.24 L Hemoglobin 9.7 L Hematocrit 32.9 L Mean Corpuscular 77.6 L Volume Mean Corpuscular 22.9 L Hemoglobin Mean Corpuscular 29.5 L Hemoglobin Concent Red Cell 14.8 H Distribution Width Platelet Count 249 Mean Platelet Volume 12.3 H Immature 0.800 H Granulocytes % Neutrophils % 80.7 H Lymphocytes % 11.5 L Monocytes % 6.0 Eosinophils % 0.7 Basophils % 0.3 Nucleated Red Blood 0.0 Cells % Immature 0.080 H Granulocytes # Neutrophils # 8.2 H Lymphocytes # 1.2 Monocytes # 0.6 Eosinophils # 0.1 Basophils # 0.0 Nucleated Red Blood 0.0 Cells # Sodium Level 138 Potassium Level 4.0 Chloride Level 106 Carbon Dioxide Level 25 Anion Gap 7 Blood Urea Nitrogen 19 # Creatinine 0.89 Est Glomerular > 60 Filtrat Rate mL/min Glucose Level 197 Calcium Level 8.1 L Phosphorus Level 3.8 Magnesium Level 1.5 L Exam/Review of Systems Exam Vitals Vital Signs Date Temp Pulse Resp B/P (MAP) Pulse Ox O2 O2 Flow FiO2 Time Delivery Rate 09/06/18 98.0 81 17 124/66 98 Room Air 07:30 (85) Intake and Output 09/05/18 09/05/18 09/06/18 1515:00 23:00 07:00 IntakeIntake Total 1020 ml 890 ml 1950 ml OutputOutput Total 1500 ml 2400 ml BalanceBalance -480 ml 890 ml -450 ml Results Results 24hrs Laboratory Tests Test 09/05/18 11:57 09/05/18 12:30 09/05/18 17:13 09/05/18 21:17 Bedside Glucose 259 H 155 204 Urine Color STRAW Urine Clarity CLEAR Urine pH 6.0 Urine Specific 1.012 [place] Urine Ketones NEGATIVE Urine Nitrite NEGATIVE Urine Bilirubin NEGATIVE Urine Urobilinogen NEGATIVE Urine Leukocyte NEGATIVE Esterase Urine Hemoglobin NEGATIVE Urine Random 38.21 Creatinine Urine Random Sodium 76 Urine Glucose 2+ H Urine Total Protein 20.0 H Test 09/06/18 02:44 09/06/18 06:03 09/06/18 06:04 09/06/18 08:10 Bedside Glucose 196 193 White Blood Count 10.1 Red Blood Count 4.24 L Hemoglobin 9.7 L Hematocrit 32.9 L Mean Corpuscular 77.6 L Volume Mean Corpuscular 22.9 L Hemoglobin Mean Corpuscular 29.5 L Hemoglobin Concent Red Cell 14.8 H Distribution Width Platelet Count 249 Mean Platelet Volume 12.3 H Immature 0.800 H Granulocytes % Neutrophils % 80.7 H Lymphocytes % 11.5 L Monocytes % 6.0 Eosinophils % 0.7 Basophils % 0.3 Nucleated Red Blood 0.0 Cells % Immature 0.080 H Granulocytes # Neutrophils # 8.2 H Lymphocytes # 1.2 Monocytes # 0.6 Eosinophils # 0.1 Basophils # 0.0 Nucleated Red Blood 0.0 Cells # Sodium Level 138 Potassium Level 4.0 Chloride Level 106 Carbon Dioxide Level 25 Anion Gap 7 Blood Urea Nitrogen 19 # Creatinine 0.89 Est Glomerular > 60 Filtrat Rate mL/min Glucose Level 197 Calcium Level 8.1 L Phosphorus Level 3.8 Magnesium Level 1.5 L Medications Medication Current Medications IV Flush (NS 3 ml) 3 ml PER PROTOCOL IV ; Start 09/04/18 at 23:30 Ondansetron HCl (Zofran Inj) 4 mg Q6H PRN IV NAUSEA/VOMITING; Start 09/04/18 at 23:30 Acetaminophen (Tylenol Tab) 650 mg Q6H PRN PO .PAIN 1-3 OR TEMP Last administered on 09/05/18at 09:53; Admin Dose 650 MG; Start 09/04/18 at 23:30 Acetaminophen/ Hydrocodone Bitart ([place] (5/325)) 1 tab Q6H PRN PO .MOD PAIN 4- 6; Start 09/04/18 at 23:30 Acetaminophen/ Hydrocodone Bitart ([place] (5/325)) 2 tab Q6H PRN PO .SEVERE PAIN 7-10; Start 09/04/18 at 23:30 Albuterol/ Ipratropium (Duoneb) 3 ml Q2H RESP THERAPY PRN HHN SHORTNESS OF BREATH; Start 09/04/18 at 23:30 Lisinopril (Zestril) 20 mg DAILY PO Last administered on 09/06/18at 08:16; Admin Dose 20 MG; Start 09/05/18 at 09:00 Rivaroxaban (Xarelto) 20 mg WITH DINNER PO Last administered on 09/05/18at 17:19; Admin Dose 20 MG; Start 09/05/18 at 18:05 Cefepime HCl 50 ml @ 100 mls/hr Q12 IVPB Last administered on 09/06/18at 08:11; Admin Dose 100 MLS/HR; Start 09/05/18 at 09:00 Vancomycin HCl (Vanco Iv Per Pharmacy) VANCOMYCIN PER PHARMACY PER PROTOCOL XX ; Start 09/04/18 at 23:30 Linagliptin (Tradjenta) 5 mg DAILY PO Last administered on 09/06/18at 08:11; Admin Dose 5 MG; Start 09/05/18 at 09:00 Vancomycin HCl 1.5 gm/Sodium Chloride 250 ml @ 83.333 mls/ hr Q12H IVPB Last administered on 09/05/18at 22:48; Admin Dose 83.333 MLS/HR; Start 09/05/18 at 10:00 Duloxetine HCl (Cymbalta) 60 mg HS PO Last administered on 09/05/18at 22:42; Admin Dose 60 MG; Start 09/05/18 at 01:00 Lorazepam (Ativan) 1 mg QHS PO Last administered on 09/05/18at 23:16; Admin Dose 1 MG; Start 09/05/18 at 01:00 Zolpidem Tartrate (Ambien) 10 mg HS PO Last administered on 09/05/18 22:42; Admin Dose 10 MG; Start 09/05/18 at 01:00 Diagnostic Test (Pha) (Accu-Chek) 1 ea 02 XX ; Start 09/06/18 at 02:00 Miscellaneous Information 1 ea NOTE XX ; Start 09/05/18 at 05:30 Glucose (Glutose) 15 gm Q15M PRN PO DECREASED GLUCOSE; Start 09/05/18 at 05:30 Glucose (Glutose) 22.5 gm Q15M PRN PO DECREASED GLUCOSE; Start 09/05/18 at 05:30 Dextrose (D50w Syringe) 25 ml Q15M PRN IV DECREASED GLUCOSE; Start 09/05/18 at 05:30 Dextrose (D50w Syringe) 50 ml Q15M PRN IV DECREASED GLUCOSE; Start 09/05/18 at 05:30 Glucagon (Glucagen) 1 mg Q15M PRN IM DECREASED GLUCOSE; Start 09/05/18 at 05:30 Glucose (Glutose) 15 gm Q15M PRN BUCCAL DECREASED GLUCOSE; Start 09/05/18 at 05:30 Mupirocin (Bactroban) 1 applic DAILY TOP Last administered on 09/06/18at 08:16; Admin Dose 1 APPLIC; Start 09/05/18 at 09:00 Gentamicin Sulfate (Gentamicin 0.1% Oint) 1 applic QPM TOP Last administered on 09/05/18at 21:21; Admin Dose 1 APPLIC; Start 09/05/18 at 21:00 Insulin Aspart (Novolog Insulin Pen) 15 unit WITH MEALS SC Last administered on 09/06/18at 08:14; Admin Dose 15 UNIT; Start 09/05/18 at 17:35 Insulin Glargine (Lantus) 47 units DAILY@0800 SC Last administered on 09/06/18at 08:15; Admin Dose 47 UNITS; Start 09/06/18 at 08:00 Insulin Aspart (Novolog Insulin Pen) NOVOLOG *MILD* ALGORITHM WITH MEALS BEDTIME SC Last administered on 09/06/18at 08:13; Admin Dose 2 UNIT; Start 09/05/18 at 18:05 IV Flush (NS 10 ml) 10 ml PRN PRN IV FLUSH LINE; Start 09/05/18 at 17:00 Magnesium Sulfate 50 ml @ 25 mls/hr ONCE ONCE IVPB ; Start 09/06/18 at 10:00; Stop 09/06/18 at 11:59 ANDREW ISABEL V. EXTERMINATOR Sep 06, 2018 10:08
[2018-09-06] MEDS: VANCOMYCIN HCL 1.5 GM in SOD CHLORIDE 0.9% 250 ML IVPB SCH ×2 (10:31→23:00)
[2018-09-06 14:16] VITALS: BP 119/72; PULSE 76; RESP 16
--- NOTE | 2018-09-06 16:35 | CONS ---
Assessment/Plan Assessment/Plan Hospital Course (Demo Recall) ID PROGRESS NOTE CURRENT ABX: DAY # => Vanco IV + Cefepime 09/06/18 0603 09/06/18 0604 24H INTERVAL SUMMARY * A/A/O - -foot is much better -- patient knows Dr. Sullivan well since onset of DM foot ulcers back in 2005. 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 There is mild to moderate cardiomegaly. Lungs are clear. There is no pleural effusion or pneumothorax. * 09/04/18 RIGHT FOOT XR: * 1. 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 * 2. Possible ulcers at the plantar aspect of the foot as described. Negative for evidence of aggressive bony destruction or periosteal reaction to indicate acute osteomyelitis. * 3. Soft tissue swelling without soft tissue gas may be due to soft tissue infection in the appropriate clinical setting. MICRO/OTHER * 09/05/18 WOUND CX: WOUND CULTURE Preliminary Organism 1 STAPHYLOCOCCUS AUREUS QUANTITY 1+ * 09/04/18 BCx (-) PHYSICAL EXAMINATION: GENERAL: VSS, NAD, obese M HEENT: AT, NC, anicteric, NECK: Supple, CHEST: Equal chest rise bilaterally, without dyspnea on observation HEART: Pulse RRR ABDOMEN: Soft / NT EXTREMITIES: Warm, dry / Bilateral Charcot foot deformity, right foot DSG C//D/I SKIN: No rash, no diaphoresis ID ASSESSMENT 43 yo M admit with: 1. Sepsis w/leukocytosis, tachycardia 2. Nonhealing right diabetic foot ulcer, failed outpatient antibiotics== Acute on chronic Right foot cellulitis w/wound * Hx of prior Right fifth metatarsal partial resection 3. Bilateral DM Charcot foot deformity 4. Hx of prior Left fifth toe amputation, triple arthrodesis, left foot. * Hx of DVT LLEXT -- resolved -- currently on Xarelto 5. 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 Hypertension 7. HLD 8. Acute renal insufficiency/CKD 9. Anemia of chronic disease 10. Hypothyroidism: Synthroid 11. Depression: Continue Cymbalta INVASIVES: PICC RUEXT CURRENT ABX: DAY # => Vanco IV + Cefepime ID RECOMMENDATIONS/PLAN: 1. When cleared for DC home; patient may DC home on Vanco 1.25mg IV Q12H with continued dosing per OP clinical pharmacist for a total 28 days . * D/W Dr. Sullivan -- order for case management to arrange IV ABX placed. * DC Cefepime upon discharge . Consultation Date/Type/Reason Admit Date/Time Sep 04, 2018 at 21:52 Initial Consult Date Date/Time of Note DATE: 09/06/18 TIME: 16:34 Exam/Review of Systems Exam Vitals Vital Signs Date Temp Pulse Resp B/P (MAP) Pulse Ox O2 O2 Flow FiO2 Time Delivery Rate 09/06/18 98.1 76 16 119/72 98 Room Air 14:16 (88) Intake and Output 09/05/18 09/05/18 09/06/18 1515:00 23:00 07:00 IntakeIntake Total 1020 ml 890 ml 1950 ml OutputOutput Total 1500 ml 2400 ml BalanceBalance -480 ml 890 ml -450 ml Results Result Diagram: 09/06/18 0603 09/06/18 0604 Results 24hrs Laboratory Tests Test 09/05/18 17:13 09/05/18 21:17 09/06/18 02:44 09/06/18 06:03 Bedside Glucose 155 204 196 White Blood Count 10.1 Red Blood Count 4.24 L Hemoglobin 9.7 L Hematocrit 32.9 L Mean Corpuscular 77.6 L Volume Mean Corpuscular 22.9 L Hemoglobin Mean Corpuscular 29.5 L Hemoglobin Concent Red Cell 14.8 H Distribution Width Platelet Count 249 Mean Platelet Volume 12.3 H Immature 0.800 H Granulocytes % Neutrophils % 80.7 H Lymphocytes % 11.5 L Monocytes % 6.0 Eosinophils % 0.7 Basophils % 0.3 Nucleated Red Blood 0.0 Cells % Immature 0.080 H Granulocytes # Neutrophils # 8.2 H Lymphocytes # 1.2 Monocytes # 0.6 Eosinophils # 0.1 Basophils # 0.0 Nucleated Red Blood 0.0 Cells # Test 09/06/18 06:04 4/13/19 08:10 09/06/18 09:11 09/06/18 11:56 Sodium Level 138 Potassium Level 4.0 Chloride Level 106 Carbon Dioxide Level 25 Anion Gap 7 Blood Urea Nitrogen 19 # Creatinine 0.89 Est Glomerular > 60 Filtrat Rate mL/min Glucose Level 197 Calcium Level 8.1 L Phosphorus Level 3.8 Magnesium Level 1.5 L Bedside Glucose 193 258 H Vancomycin Level 12.7 Trough Medications Medication Current Medications IV Flush (NS 3 ml) 3 ml PER PROTOCOL IV ; Start 09/04/18 at 23:30 Ondansetron HCl (Zofran Inj) 4 mg Q6H PRN IV NAUSEA/VOMITING; Start 09/04/18 at 23:30 Acetaminophen (Tylenol Tab) 650 mg Q6H PRN PO .PAIN 1-3 OR TEMP Last administered on 09/05/18at 09:53; Admin Dose 650 MG; Start 09/04/18 at 23:30 Acetaminophen/ Hydrocodone Bitart ([place] (5/325)) 1 tab Q6H PRN PO .MOD PAIN 4- 6; Start 09/04/18 at 23:30 Acetaminophen/ Hydrocodone Bitart ([place] (5/325)) 2 tab Q6H PRN PO .SEVERE PAIN 7-10; Start 09/04/18 at 23:30 Albuterol/ Ipratropium (Duoneb) 3 ml Q2H RESP THERAPY PRN HHN SHORTNESS OF BREATH; Start 09/04/18 at 23:30 Lisinopril (Zestril) 20 mg DAILY PO Last administered on 09/06/18at 08:16; Admin Dose 20 MG; Start 09/05/18 at 09:00 Rivaroxaban (Xarelto) 20 mg WITH DINNER PO Last administered on 09/05/18 17:19; Admin Dose 20 MG; Start 09/05/18 at 18:05 Cefepime HCl 50 ml @ 100 mls/hr Q12 IVPB Last administered on 09/06/18 08:11; Admin Dose 100 MLS/HR; Start 09/05/18 at 09:00 Vancomycin HCl (Vanco Iv Per Pharmacy) VANCOMYCIN PER PHARMACY PER PROTOCOL XX ; Start 09/04/18 at 23:30 Linagliptin (Tradjenta) 5 mg DAILY PO Last administered on 09/06/18 08:11; Ad min Dose 5 MG; Start 09/05/18 at 09:00 Vancomycin HCl 1.5 gm/Sodium Chloride 250 ml @ 83.333 mls/ hr Q12H IVPB Last administered on 09/06/18 10:31; Admin Dose 83.333 MLS/HR; Start 09/05/18 at 10:00 Duloxetine HCl (Cymbalta) 60 mg HS PO Last administered on 09/05/18 22:42; Admin Dose 60 MG; Start 09/05/18 at 01:00 Lorazepam (Ativan) 1 mg QHS PO Last administered on 09/05/18 23:16; Admin Dose 1 MG; Start 09/05/18 at 01:00 Zolpidem Tartrate (Ambien) 10 mg HS PO Last administered on 09/05/18 22:42; Admin Dose 10 MG; Start 09/05/18 at 01:00 Diagnostic Test (Pha) (Accu-Chek) 1 ea 02 XX ; Start 09/06/18 at 02:00 Miscellaneous Information 1 ea NOTE XX ; Start 09/05/18 at 05:30 Glucose (Glutose) 15 gm Q15M PRN PO DECREASED GLUCOSE; Start 09/05/18 at 05:30 Glucose (Glutose) 22.5 gm Q15M PRN PO DECREASED GLUCOSE; Start 09/05/18 at 05:30 Dextrose (D50w Syringe) 25 ml Q15M PRN IV DECREASED GLUCOSE; Start 09/05/18 at 05:30 Dextrose (D50w Syringe) 50 ml Q15M PRN IV DECREASED GLUCOSE; Start 09/05/18 at 05:30 Glucagon (Glucagen) 1 mg Q15M PRN IM DECREASED GLUCOSE; Start 09/05/18 at 05:30 Glucose (Glutose) 15 gm Q15M PRN BUCCAL DECREASED GLUCOSE; Start 09/05/18 at 05:30 Mupirocin (Bactroban) 1 applic DAILY TOP Last administered on 09/06/18at 08:16; Admin Dose 1 APPLIC; Start 09/05/18 at 09:00 Gentamicin Sulfate (Gentamicin 0.1% Oint) 1 applic QPM TOP Last administered on 09/05/18at 21:21; Admin Dose 1 APPLIC; Start 09/05/18 at 21:00 Insulin Aspart (Novolog Insulin Pen) 15 unit WITH MEALS SC Last administered on 09/06/18 11:58; Admin Dose 15 UNIT; Start 09/05/18 at 17:35 Insulin Glargine (Lantus) 47 units DAILY@0800 SC Last administered on 09/06/18 08:15; Admin Dose 47 UNITS; Start 09/06/18 at 08:00 Insulin Aspart (Novolog Insulin Pen) NOVOLOG *MILD* ALGORITHM WITH MEALS BEDTIME SC Last administered on 09/06/18 11:59; Admin Dose 3 UNIT; Start 09/05/18 at 18:05 IV Flush (NS 10 ml) 10 ml PRN PRN IV FLUSH LINE; Start 09/05/18 at 17:00 CAMILO GARCIA NP Sep 06, 2018 16:35
[2018-09-06] MEDS: RIVAROXABAN 20 MG TABLET PO SCH (17:35)
[2018-09-06 20:20] VITALS: BP 134/72; PULSE 89; RESP 18
[2018-09-06] MEDS: GENTAMICIN 0.1% 15 GM OINT TOP SCH (21:00)
[2018-09-06] MEDS: DULOXETINE 30 MG CAP DR PO SCH (22:53)
[2018-09-06] MEDS: ZOLPIDEM 5 MG TAB PO SCH (22:54)
[2018-09-06] MEDS: LORAZEPAM 1 MG TAB PO SCH (23:40)
[2018-09-07] MEDS: ACCU-CHEK XX SCH (02:00)
[2018-09-07 02:15] VITALS: BP 122/58; PULSE 89; RESP 18
[2018-09-07] MEDS: MUPIROCIN 2% 22 GM OINT TOP SCH ×2 (06:54→08:39)
[2018-09-07 08:09] VITALS: BP 121/70; PULSE 77; RESP 18
[2018-09-07] MEDS: INSULIN ASPART [NOVOLOG] 3 ML PEN SC SCH ×4 (08:26→12:12)
[2018-09-07] MEDS: INSULIN GLARGINE [LANTus] (100 UNITS/ML) SYG SC SCH (08:28)
[2018-09-07] MEDS: CEFEPIME 1GM/50 ML (PMX) 50 ML IVPB SCH (08:28)
[2018-09-07] MEDS: LINAGLIPTIN 5 MG TABLET PO SCH (08:29)
[2018-09-07] MEDS: LISINOPRIL 20 MG TAB PO SCH (08:30)
--- NOTE | 2018-09-07 08:50 | PN ---
DATE: 09/07/2018 SUBJECTIVE: The patient is stable, no events overnight. No fevers, chills, nausea, or vomiting. OBJECTIVE: VITAL SIGNS: Blood pressure is 121/70, respirations 18, pulse 77, temperature 97.6. HEENT: Head is normocephalic. NECK: Supple. HEART: Regular rate. LUNGS: Show diminished breath sounds at the base. ABDOMEN: Soft, nontender to palpation without rebound or guarding. EXTREMITIES: Negative for clubbing, cyanosis, or edema. DERMATOLOGIC: No rashes. MUSCULOSKELETAL: No joint effusion. The patient lower extremity wounds are noted. NEUROLOGIC: No change in exam. MEDICATIONS: Reviewed. LABORATORY DATA: Reviewed. ASSESSMENT AND PLAN: 1. Nonoliguric acute kidney injury with previous baseline creatinine of 1.0 mg/dL. Etiology of acut e kidney injury is secondary to hemodynamics. Renal function is improved. Continue current treatmen t plan. 2. Hypomagnesemia, resolved. 3. Hypertension. Continue current blood pressure regimen. 4. Lower foot wound. Continue wound care, antibiotics, followup with podiatry. 5. Diabetes. Continue current insulin regimen. 6. Hypothyroidism. Continue Synthroid. 7. We will sign off. Please reconsult as needed. Dictated By: JANNIE ESPINOSA DO NR/NTS Conf#: [id number] DID#: [id number] CC: JOSÉ DE LA GARZA DPM; NELY CAAL MD;*EndCC*
[2018-09-07] MEDS ORDERED: ZINC SULFATE 220 MG CAP PO SCH (09:00)
[2018-09-07] MEDS ORDERED: ASCORBIC ACID 500 MG TAB PO SCH (09:00)
[2018-09-07] MEDS: VANCOMYCIN HCL 1.5 GM in SOD CHLORIDE 0.9% 250 ML IVPB SCH (11:07)
--- NOTE | 2018-09-07 12:19 | PDOCDIS ---
Discharge Instructions CONDITION [id number] Patient Condition: [id number] Stable HOME CARE INSTRUCTIONS: [id number] Your diet recommendation is: [id number] Carbohydrate controlled/low cholesterol diet FOLLOW UP/APPOINTMENTS Follow-up Plan Follow-up with on Saturday to get next appointment time. Continue wound care as instructed by your kiln tester. ANDREW ISABEL NP Sep 07, 2018 12:19
[2018-09-07] MEDS ORDERED: VANC1VIA2 IV (12:22)
--- NOTE | 2018-09-07 12:28 | DS ---
Date/Time of Note Date/Time of Note DATE: 09/07/18 TIME: 12:24 Discharge Summary Admission/Discharge Info Admit Date/Time Sep 04, 2018 at 21:52 Discharge Date/Time Discharge Diagnosis 1. Nonhealing right diabetic foot ulcer, failed outpatient antibiotics 2. S/P Sepsis secondary to #1. 3. Type 2 diabetes, poorly controlled 4. Left foot ulcer, nearly healed 5. Chronic iron deficient anemia along with inflammation. 6. Essential hypertension. 7. Depression 8. Hypothyroidism 9. Hx DVT left leg Consults Dr. Sullivan, infectious disease ,Podiatry Procedures 09/05/2018. Left upper arm PICC line insertion. 09/04/2018:IMPRESSION: 1. 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 2. Possible ulcers at the plantar aspect of the foot as described. Negative for evidence of aggressive bony destruction or periosteal reaction to indicate acute osteomyelitis. 3. Soft tissue swelling without soft tissue gas may be due to soft tissue infection in the appropriate clinical setting. 09/05/2018. Ultrasound of the extremity venous. IMPRESSION: No sonographic evidence for deep venous thrombosis. Hospital Course 43-year-old obese male with history of diabetes, bilateral Charcot deformities, chronic bilateral foot ulcers, DVT,who was advised by his nurse college to get admitted for inpatient workup for worsening Right foot ulcer, failed outpatient antibiotics, also found to have sepsis. Patient was seen by nurse college, recommended IV antibiotics continuation. He was continued on wound care irrigation b.i.d. with Betadine and application of Bactroban and gentamicin ointment alternating. There was no surgical intervention proposed at this time as cellulitis is responding nicely on medical management. She was continued on antimicrobials per ID recommendations. Wound culture grew staph aureus. As patient failed outpatient oral antibiotic regimen, recommendation was to keep patient on IV antibiotics which is vancomyc in for another 28 days. Sepsis resolved. Home health was arranged for wound care and antibiotics continuation. Comorbidities were managed according to medical records. During the course of hospitalization, and venous duplex was performed as patient had a history of DVT and he has been on Xarelto for the last 4 years. DVT did not reveal any blood clots at present. However, patient is continuing Xarelto secondary to high risk for clot formation which we will continue on discharge with PCP follow-up. Approximately 60 minutes was spent on coordinating the discharge on this patient. Patient was seen in collaboration with Dr. Gusman. Home Meds Reported Medications Testosterone* (Androgel*) 1.62%-2.5gm Gel..ea., 2.5 GM TD BID, PACKET 09/04/18 Testosterone* (Androgel*) 1%-5GM Gel..ea., 5 GM TD DAILY, PACKET 09/04/18 Lisinopril* (Lisinopril*) 20 Mg Tablet, 20 MG PO DAILY, #30 TAB 09/04/18 Sitagliptin* (Januvia*) 100 Mg Tablet, 100 MG PO DAILY for 30 Days, #30 TAKE 1 TABLET BY MOUTH EVERY DAY 09/04/18 Lorazepam* (Lorazepam*) 1 Mg Tablet, 1 MG PO QHS TAKE 1 TABLET BY MOUTH AT BEDTIME 09/04/18 Levothyroxine Sodium* (Levothyroxine Sodium*) 50 Mcg Tablet, 50 MCG PO QAM for 90 Days, #90 TAKE 1 TABLET BY MOUTH EVERY DAY 09/04/18 Rivaroxaban* (Xarelto*) 20 Mg Tablet, 20 MG PO DAILY for 30 Days, #30 09/04/18 Cephalexin* (Cephalexin*) 500 Mg Capsule, 500 MG PO QID for 10 Days, #40 TAKE ONE CAPSULE BY MOUTH 4 TIMES A DAY 09/04/18 Ciprofloxacin Hcl* (Ciprofloxacin Hcl*) 500 Mg Tablet, 500 MG PO BID for 15 Days, #30 09/04/18 Insulin Glargine,Hum.rec.anlog (Basaglar Kwikpen U-100) 100 Unit/1 Ml Insuln.pen, 60 UNIT SC QHS, EA 09/04/18 Insulin Aspart* (Novolog Insulin Pen*) 100 Unit/Ml Soln, 20 UNIT SC WITH MEALS, EA 09/04/18 Duloxetine Hcl* (Cymbalta*) 60 Mg Capsule.dr, 60 MG PO DAILY, CAP 09/04/18 Metformin* (Glucophage*) 1,000 Mg Tablet, 1000 MG PO DAILY 11/18/12 Zolpidem Tartrate* (Zolpidem Tartrate*) 10 Mg Tablet, 10 MG PO HS 6/25/13 Discontinued Reported Medications Lorazepam* (Ativan*) 0.5 Mg Tablet, 0.5 MG PO PRN 02/16/13 [Levotheroxide] No Conflict Check, 50 MCG 11/18/12 Benazepril Hcl* (Lotensin*) 40 Mg Tablet, 40 MG PO DAILY 11/18/12 [Glyburide] No Conflict Check, 5 MG DAILY 11/18/12 [Hydroxyzine] No Conflict Check, 25 MG HS 11/18/12 Paroxetine Hcl* (Paroxetine*) 10 Mg Tablet, 10 MG PO HS 11/18/12 Follow-up Plan Follow-up with on Saturday to get next appointment time. Continue wound care as instructed by your nurse college. Primary Care Provider Dhiraj Plunkett MD Pending Labs Laboratory Tests Test 09/06/18 17:32 09/06/18 22:55 09/07/18 06:09 09/07/18 08:24 Bedside 293 171 177 Glucose mg/dL (70-220) mg/dL (70-220) mg/dL (70-220) Sodium Level 140 mmol/L (135-14 4) Potassium 4.1 Level mmol/L (3.5-5. 1) Chloride Level 105 mmol/L (97-110 ) Carbon Dioxide 27 Level mmol/L (21-31) Anion Gap 8 (5-13) Blood Urea 17 Nitrogen mg/dl (7-20) Creatinine 0.94 mg/dl (0.61-1. 24) Est Glomerular > 60 Filtrat mL/min (>60) Rate mL/min Glucose Level 138 mg/dl (70-220) Calcium Level 8.6 mg/dl (8.4-10. 2) Phosphorus 5.1 Level mg/dl (2.5-4.9 ) Magnesium 1.8 Level mg/dl (1.7-2.5 ) ANDREW ISABEL NP Sep 07, 2018 12:28
[2018-09-07 13:52] VITALS: BP 118/56; PULSE 86; RESP 19
--- NOTE | 2018-09-07 16:29 | CONS ---
DATE OF ADMISSION: 09/04/2018 DATE OF CONSULTATION: 09/07/2018 SUBJECTIVE FINDINGS: The patient is being followed for bilateral diabetic foot ulceration, has a sig nificant improvement, decrease in WBC. Denies any fever, nausea, vomiting. Pain is resolving. The wounds also with significant improvement. The patient is pending discharge. OBJECTIVE: VITAL SIGNS: Temperature is 97.7, pulse 86, respiratory rate 19, blood pressure is 118/56, pulse ox is 99 on room air. GENERAL: The patient is alert, oriented, obese. He has bilateral Charcot foot deformity varus, rigi d varus deformity. Left foot plantar ulceration appears healed callus formation. Right foot plantar ulceration measuring 0.5 x 0.5 by depth of 0.2 cm. Decreased erythema, epidermolysis of skin noted. 2+ DP, PT pulse. Wound cultures Staph aureus with pansensitivity. LABORATORIES: WBC 10.1, hemoglobin 9.7, hematocrit 32.9, platelets 249. Sed rate is 58. ASSESSMENT: 1. Bilateral diabetic foot ulceration. 2. Cellulitis, resolving. 3. Charcot deformity. 4. Diabetes with peripheral neuropathy. PLAN: The patient is being discharged. Continue local wound care. Wounds were irrigated and packed open with bacitracin and gentamicin. The patient recommended vancomycin 1.25 g q.12h. for 17 days. The patient education, tight glycemic control and minimal weightbearing status. Followup as an outp atient for wound care. Dictated By: JOSÉ HOGAN/MO Conf#: [id number] DID#: [id number]
--- NOTE | 2018-09-07 16:41 | CONS ---
Assessment/Plan Assessment/Plan Hospital Course (Demo Recall) ID PROGRESS NOTE CURRENT ABX: DAY # => Vanco IV + Cefepime 24H INTERVAL SUMMARY * Much improved --- DC planning in process ready to go home; insurance must be verified by HH on SATURDAY * Patient eager to return HOME with IV ABX -- He needs to get back to work as [employer] on Saturday DIAGNOSTIC IMAGING * 09/05/18 CXR: FINDINGS: There is a new right-sided PICC line in place with its tip overlying the cavoatrial junction. There is mild to moderate cardiom egaly. Lungs are clear. There is no pleural effusion or pneumothorax. * 09/04/18 RIGHT FOOT XR: * 1. 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 * 2. Possible ulcers at the plantar aspect of the foot as described. Negative for evidence of aggressive bony destruction or periosteal reaction to indicate acute osteomyelitis. * 3. Soft tissue swelling without soft tissue gas may be due to soft tissue infection in the appropriate clinical setting. MICRO/OTHER * 09/05/18 WOUND CX: WOUND CULTURE Preliminary Organism 1 STAPHYLOCOCCUS AUREUS QUANTITY 1+ * 09/04/18 BCx (-) PHYSICAL EXAMINATION: GENERAL: VSS, NAD, obese M HEENT: AT, NC, anicteric, NECK: Supple, CHEST: Equal chest rise bilaterally, without dyspnea on observation HEART: Pulse RRR ABDOMEN: Soft / NT EXTREMITIES: Warm, dry / Bilateral Charcot foot deformity, right foot DSG C//D/I SKIN: No rash, no diaphoresis ID ASSESSMENT 43 yo M admit with: 1. Sepsis w/leukocytosis, tachycardia => RESOLVED 2. Nonhealing right diabetic foot ulcer, failed outpatient antibiotics== Acute on chronic Right foot cellulitis w/wound * Hx of prior Right fifth metatarsal partial resection 3. Bilateral DM Charcot foot deformity 4. Hx of prior Left fifth toe amputation, triple arthrodesis, left foot. * Hx of DVT LLEXT -- resolved -- currently on Xarelto 5. 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 Hypertension 7. HLD 8. Acute renal insufficiency/CKD 9. Anemia of chronic disease 10. Hypothyroidism: Synthroid 11. Depression: Continue Cymbalta INVASIVES: PICC RUEXT CURRENT ABX: DAY # => Vanco IV + Cefepime ID RECOMMENDATIONS/PLAN: 1. When cleared for DC home; patient may DC home on Vanco 1.25mg IV Q12H with continued dosing per OP clinical pharmacist for a total 28 days . * DC planning in process -- HH must verify insurance will pay on SATURDAY prior to authorizing HH IV ABX * DC Cefepime upon discharge . Consultation Date/Type/Reason Admit Date/Time Sep 04, 2018 at 21:52 Initial Consult Date Date/Time of Note DATE: 09/07/18 TIME: 16:38 Exam/Review of Systems Exam Vitals Vital Signs Date Temp Pulse Resp B/P (MAP) Pulse Ox O2 O2 Flow FiO2 Time Delivery Rate 09/07/18 97.7 86 19 118/56 99 13:52 (76) 09/06/18 Room Air 14:16 Intake and Output 09/06/18 09/06/18 09/07/18 1515:00 23:00 07:00 IntakeIntake Total 1240 ml 500 ml 2050 ml OutputOutput Total 750 ml 2750 ml BalanceBalance 490 ml 500 ml -700 ml Results Result Diagram: 09/06/18 0603 09/07/18 0609 Results 24hrs Laboratory Tests Test 09/06/18 17:32 09/06/18 22:55 09/07/18 06:09 09/07/18 08:24 Bedside Glucose 293 H 171 177 Sodium Level 140 Potassium Level 4.1 Chloride Level 105 Carbon Dioxide Level 27 Anion Gap 8 Blood Urea Nitrogen 17 Creatinine 0.94 Est Glomerular > 60 Filtrat Rate mL/min Glucose Level 138 # Calcium Level 8.6 Phosphorus Level 5.1 H Magnesium Level 1.8 Test 09/07/18 12:09 Bedside Glucose 202 Medications Medication Current Medications IV Flush (NS 3 ml) 3 ml PER PROTOCOL IV ; Start 09/04/18 at 23:30 Ondansetron HCl (Zofran Inj) 4 mg Q6H PRN IV NAUSEA/VOMITING; Start 09/04/18 at 23:30 Acetaminophen (Tylenol Tab) 650 mg Q6H PRN PO .PAIN 1-3 OR TEMP Last administered on 09/05/18at 09:53; Admin Dose 650 MG; Start 09/04/18 at 23:30 Acetaminophen/ Hydrocodone Bitart ([place] (5/325)) 1 tab Q6H PRN PO .MOD PAIN 4- 6; Start 09/04/18 at 23:30 Acetaminophen/ Hydrocodone Bitart ([place] (5/325)) 2 tab Q6H PRN PO .SEVERE PAIN 7-10; Start 09/04/18 at 23:30 Albuterol/ Ipratropium (Duoneb) 3 ml Q2H RESP THERAPY PRN HHN SHORTNESS OF BREATH; Start 09/04/18 at 23:30 Lisinopril (Zestril) 20 mg DAILY PO Last administered on 09/07/18 08:30; Admin Dose 20 MG; Start 09/05/18 at 09:00 Rivaroxaban (Xarelto) 20 mg WITH DINNER PO Last administered on 09/06/18 17:35; Admin Dose 20 MG; Start 09/05/18 at 18:05 Cefepime HCl 50 ml @ 100 mls/hr Q12 IVPB Last administered on 09/07/18 08:28; Admin Dose 100 MLS/HR; Start 09/05/18 at 09:00 Vancomycin HCl (Vanco Iv Per Pharmacy) VANCOMYCIN PER PHARMACY PER PROTOCOL XX ; Start 09/04/18 at 23:30 Linagliptin (Tradjenta) 5 mg DAILY PO Last administered on 09/07/18 08:29; Admin Dose 5 MG; Start 09/05/18 at 09:00 Vancomycin HCl 1.5 gm/Sodium Chloride 250 ml @ 83.333 mls/ hr Q12H IVPB Last administered on 09/07/18 11:07; Admin Dose 83.333 MLS/HR; Start 09/05/18 at 10:00 Duloxetine HCl (Cymbalta) 60 mg HS PO Last administered on 09/06/18 22:53; Admin Dose 60 MG; Start 09/05/18 at 01:00 Lorazepam (Ativan) 1 mg QHS PO Last administered on 09/06/18 23:40; Admin Dose 1 MG; Start 09/05/18 at 01:00 Zolpidem Tartrate (Ambien) 10 mg HS PO Last administered on 09/06/18 22:54; Admin Dose 10 MG; Start 09/05/18 at 01:00 Diagnostic Test (Pha) (Accu-Chek) 1 ea 02 XX ; Start 09/06/18 at 02:00 Miscellaneous Information 1 ea NOTE XX ; Start 09/05/18 at 05:30 Glucose (Glutose) 15 gm Q15M PRN PO DECREASED GLUCOSE; Start 09/05/18 at 05:30 Glucose (Glutose) 22.5 gm Q15M PRN PO DECREASED GLUCOSE; Start 09/05/18 at 05:30 Dextrose (D50w Syringe) 25 ml Q15M PRN IV DECREASED GLUCOSE; Start 09/05/18 at 05:30 Dextrose (D50w Syringe) 50 ml Q15M PRN IV DECREASED GLUCOSE; Start 09/05/18 at 05:30 Glucagon (Glucagen) 1 mg Q15M PRN IM DECREASED GLUCOSE; Start 09/05/18 at 05:30 Glucose (Glutose) 15 gm Q15M PRN BUCCAL DECREASED GLUCOSE; Start 09/05/18 at 05:30 Mupirocin (Bactroban) 1 applic DAILY TOP Last administered on 09/07/18at 08:39; Admin Dose 1 APPLIC; Start 09/05/18 at 09:00 Gentamicin Sulfate (Gentamicin 0.1% Oint) 1 applic QPM TOP Last administered on 09/05/18at 21:21; Admin Dose 1 APPLIC; Start 09/05/18 at 21:00 Insulin Aspart (Novolog Insulin Pen) 15 unit WITH MEALS SC Last administered on 09/07/18at 12:12; Admin Dose 15 UNIT; Start 09/05/18 at 17:35 Insulin Aspart (Novolog Insulin Pen) NOVOLOG *MILD* ALGORITHM WITH MEALS BEDTIME SC Last administered on 09/07/18at 12:12; Admin Dose 2 UNIT; Start 09/05/18 at 18:05 IV Flush (NS 10 ml) 10 ml PRN PRN IV FLUSH LINE; Start 09/05/18 at 17:00 Ascorbic Acid (Vitamin C) 1,000 mg DAILY PO Last administered on 09/07/18at 08:29; Admin Dose 1,000 MG; Start 09/07/18 at 09:00 Zinc Sulfate (Zinc Sulfate) 220 mg DAILY PO Last administered on 09/07/18at 08:29; Admin Dose 220 MG; Start 09/07/18 at 09:00 Miscellaneous Information (*Rx Drug Level Order Reminder*) VANCO TROUGH ON 08/25... 0900 ONCE XX ; Start 09/08/18 at 09:00; Stop 09/08/18 at 09:01 Insulin Glargine (Lantus) 50 units DAILY@0800 SC ; Start 09/08/18 at 08:00 CAMILO GARCAI NP Sep 07, 2018 16:41
[2018-09-08] MEDS ORDERED: INSULIN GLARGINE [LANTus] (100 UNITS/ML) SYG SC SCH (08:00)
== END 2018-09-07 16:30 | disposition home health service (06) | DRG 872 ==
LOC: E/R 19:04 → PP2 21:52
PROVIDERS: ADMIT Internal Medicine; ATTEND Internal Medicine
PROC: 02HV33Z Insertion of Infusion Device into Superior Vena Cava, Percutaneous Approach (ICD-10-PCS; principal; 2018-09-05)
DX: A41.9 Sepsis, unspecified organism (principal); L97.419 Non-pressure chronic ulcer of right heel and midfoot with unspecified severity; L03.115 Cellulitis of right lower limb; Z68.43 Body mass index [BMI] 50.0-59.9, adult; N17.9 Acute kidney failure, unspecified; E11.621 Type 2 diabetes mellitus with foot ulcer; E11.65 Type 2 diabetes mellitus with hyperglycemia; I10 Essential (primary) hypertension; D50.9 Iron deficiency anemia, unspecified; E03.9 Hypothyroidism, unspecified; F32.9 Major depressive disorder, single episode, unspecified; Z86.718 Personal history of other venous thrombosis and embolism; E11.610 Type 2 diabetes mellitus with diabetic neuropathic arthropathy; Z79.02 Long term (current) use of antithrombotics/antiplatelets; E66.9 Obesity, unspecified
CPT/HCPCS: 36415; 36569; 71045; 73630; 76937; 80048; 80053; 80061; 80202; 81003; 82043; 82962; 83036; 83540; 83605; 83735; 84100; 84155; 84300; 85025; 85610; 85651; 85730; 86140; 87070; 93005; 93970; 96374; 96375; J0692; J1650; J1815; J2543; J3370; J3475; J7030; J7050

== ENCOUNTER 2018-12-23 15:12 | Inpatient (IN) | payer OTHER ==
[~2018-12-23] VITALS: Ht 165.1 cm; Wt 142.7 kg
[~2018-12-23 15:12] MED LIST changes: +ASCO500C7 PO; -BENA40TA54 PO; +CLO15CR1 TOP; +DULO60CA6 PO; +EMPA10TA PO; -GLYBURIDE; -HYDROXYZINE; +INSU100I33 SC; +LEVO50TA7 PO; +LISI-471 PO; -LORA-441 PO; +LORA1TAB PO; +METO-448 PO; +NOVO3I SC; -PARO10TA76 PO; +RIVA20TA5 PO; +SITA100T11 PO; +VANC1VIA2 IV; -[UNRECOGNIZED DRUG - OTHER]
--- NOTE | 2018-12-23 17:30 | ERD ---
ER Documentation Chief Complaint Chief Complaint leg pain sent by joseluis anthony, has Charcots dz HPI The patient is a 43-year-old male, presenting to the ER because of acute on chronic right foot diabetic ulcer pain and fever for 1 day. 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 Pruett yesterday who started him on Cipro but he did not start until today. He complains of worsening pain and fever, had similar symptom previously, denies neck pain, chest pain, dyspnea, abdominal pain, vomiting, dysuria, diarrhea. He does not smoke nor drink Past medical history: Charcot foot, hypertension, anxiety, diabetes mellitus, hypothyroidism, depression, anemia, chronic right foot diabetic ulcer, history of left lower extremity DVT Surgical history: Multiple bilateral feet surgery, bilateral knee surgery, right wrist surgery, eye surgery, gastric sleeve ROS All systems reviewed and are negative except as per history of present illness. Medications Home Meds Active Scripts Vancomycin HCl (Vancomycin HCl) 1 Gm Vial, 1 GM IV .PHARMACY for 28 Days, VIAL Prov:ANDREW ISABEL V. [employer]Y [employer]ION MANAGER 09/07/18 Reported Medications Lisinopril* (Lisinopril*) 20 Mg Tablet, 20 MG PO DAILY, #30 TAB 09/04/18 Lorazepam* (Lorazepam*) 1 Mg Tablet, 1 MG PO QHS TAKE 1 TABLET BY MOUTH AT BEDTIME 09/04/18 Levothyroxine Sodium* (Levothyroxine Sodium*) 50 Mcg Tablet, 50 MCG PO QAM for 90 Days, #90 TAKE 1 TABLET BY MOUTH EVERY DAY 09/04/18 Rivaroxaban* (Xarelto*) 20 Mg Tablet, 20 MG PO DAILY for 30 Days, #30 09/04/18 Insulin Glargine,Hum.rec.anlog (Basaglar Kwikpen U-100) 100 Unit/1 Ml Insuln.pen, 30 UNIT SC QHS, EA 09/04/18 Insulin Aspart* (Novolog Insulin Pen*) 100 Unit/Ml Soln, 20 UNIT SC WITH MEALS, EA 09/04/18 Duloxetine Hcl* (Cymbalta*) 60 Mg Capsule.dr, 60 MG PO DAILY, CAP 09/04/18 Metformin* (Glucophage*) 1,000 Mg Tablet, 1000 MG PO BID WITH MEALS 11/18/12 Zolpidem Tartrate* (Zolpidem Tartrate*) 10 Mg Tablet, 10 MG PO HS 11/18/12 Discontinued Reported Medications Sitagliptin* (Januvia*) 100 Mg Tablet, 100 MG PO DAILY for 30 Days, #30 TAKE 1 TABLET BY MOUTH EVERY DAY 09/04/18 Allergies Allergies: Coded Allergies: gabapentin (Verified Allergy, Severe, SUICIDAL THOUGHS, 12/23/18) morphine (Verified Allergy, Intermediate, 12/23/18) pregabalin (Verified Allergy, Mild, SUICIDAL, 12/23/18) Uncoded Allergies: LYRICA (Allergy, Intermediate, WEIGHT GAIN, 01/01/13) TEGAMYCEIN (Allergy, Mild, 11/18/12) TEGAMYCIN (Allergy, Unknown, 09/04/18) PMhx/Soc History of Surgery: Yes (Multiple) Anesthesia Reaction: No Hx Neurological Disorder: Yes (Neuropathy) Hx Respiratory Disorders: No Hx Cardiac Disorders: No Hx Psychiatric Problems: Yes (Depression and anxiety) Hx Miscellaneous Medical Probl: No Hx Alcohol Use: No Hx Substance Use: No Hx Tobacco Use: No Physical Exam Vitals Vital Signs Date Temp Pulse Resp B/P (MAP) Pulse Ox O2 O2 Flow FiO2 Time Delivery Rate 12/23/18 99.2 103 17 113/69 100 Room Air 22:50 (84) 12/23/18 104 18 128/87 99 Room Air 20:09 (101) 12/23/18 100 15 107/76 99 Room Air 19:30 (86) 12/23/18 113 21 102/69 99 Room Air 18:45 (80) 12/23/18 98.8 120 18 134/78 96 15:28 (96) Physical Exam Const: No acute distress. Head: Atraumatic. Eyes: Normal Conjunctiva. ENT: Normal External Ears, Nose and Mouth. Neck: Full range of motion. No meningismus. Resp: Clear to auscultation bilaterally. Cardio: Regular tachycardic Abd: Soft, non distended, normal bowel sounds, non tender. Skin: No petechiae or rashes. Back: No midline or flank tenderness. Ext: Right foot is edematous, erythematous, right plantar chronic diabetic ulcer, no discharge, no calf tenderness Neur: Awake and alert. No focal deficit Psych: Normal Mood and Affect. Result Diagram: 12/23/18185612/23/181856 Results 24 hrs Laboratory Tests Test 12/23/18 18:56 12/23/18 18:57 12/23/18 19:56 12/23/18 21:09 POC Venous 1.4 mmol/L Lactate White Blood Count 16.1 10^3/ul Red Blood Count 5.73 10^6/ul Hemoglobin 13.7 g/dl Hematocrit 45.4 % Mean Corpuscular 79.2 fl Volume Mean Corpuscular 23.9 pg Hemoglobin Mean Corpuscular 30.2 g/dl Hemoglobin Concen t Red Cell 15.9 % Distribution Width Platelet Count 75 10^3/UL Mean Platelet fl Volume Immature 0.500 % Granulocytes % Neutrophils % % Segmented 85 % Neutrophils % (Manual) Lymphocytes % % Lymphocytes % 7 % (Manual) Reactive 2 % Lymphocytes % (Manual) Monocytes % % Monocytes % 6 % (Manual) Eosinophils % % Basophils % % Nucleated Red 0.0 /100WBC Blood Cells % Immature 0.080 10^3/ul Granulocytes # Neutrophils # 10^3/ul Lymphocytes 1.1 10^3/ul (Manual) Lymphocytes # 10^3/ul Reactive 0.3 10^3/ul Lymphocytes # Monocytes # 10^3/ul Monocytes # 0.9 10^3/ul (Manual) Eosinophils # 10^3/ul Basophils # 10^3/ul Nucleated Red 10^3/ul Blood Cells # Platelet Estimate DECREASED Polychromasia 1+ Poikilocytosis 2+ Anisocytosis 2+ Microcytosis 2+ Tear Drop Cells 2+ Ovalocytes 1+ Erythrocyte 17 mm/Hr Sedimentation Rate Prothrombin Time 15.0 Sec Prothrombin Time 1.2 Ratio INR International 1.17 Normalized Ratio Activated 30.9 Sec Partial Thrombopl ast Time Sodium Level 136 mmol/L Potassium Level 4.5 mmol/L Chloride Level 98 mmol/L Carbon Dioxide 25 mmol/L Level Anion Gap 13 Blood Urea 23 mg/dl Nitrogen Creatinine 1.47 mg/dl Est Glomerular 52 mL/min Filtrat Rate mL/min Glucose Level 278 mg/dl Calcium Level 9.5 mg/dl Total Bilirubin 0.8 mg/dl Direct Bilirubin 0.00 mg/dl Indirect 0.8 mg/dl Bilirubin Aspartate Amino 17 IU/L Transf (AST/SGOT) Alanine 24 IU/L Aminotransferase (ALT/SGPT) Alkaline 117 IU/L Phosphatase Total Protein 8.3 g/dl Albumin 4.4 g/dl Globulin 3.90 g/dl Albumin/Globulin 1.12 Ratio Urine Color STRAW Urine Clarity CLEAR Urine pH 5.0 Urine Specific 1.025 [place] Urine Ketones NEGATIVE mg/dL Urine Nitrite NEGATIVE mg/dL Urine Bilirubin NEGATIVE mg/dL Urine NEGATIVE mg/dL Urobilinogen Urine Leukocyte NEGATIVE Fawad/ul Esterase Urine Hemoglobin NEGATIVE mg/dL Urine Glucose 3+ mg/dL Urine Total NEGATIVE mg/dl Protein Lactic Acid Level 1.5 mmol/L Test 12/23/18 23:40 Lactic Acid Level 1.2 mmol/L Current Medications Medications Dose Sig/Jessica Start Time Status Last (Trade) Ordered Route PRN Stop Time Admin Dose Reason Admin Vancomycin 250 ml @ ONCE ONCE 12/23/18 DC 12/23/18 HCl 125 mls/hr IVPB 18:00 19:35 12/23/18 19:59 Piperacillin 100 ml @ ONCE ONCE 12/23/18 DC 12/23/18 Sod/ 200 mls/hr IVPB 18:00 19:00 Tazobactam 12/23/18 18:29 Sod 1 tab ONCE ONCE 12/23/18 DC 12/23/18 Acetaminophen PO 20:00 21:04 / 12/23/18 20:50 Hydrocodone Bitart ([place] (93/602)) Procedures/[place] [address] Radiology Main Line: [phone] DIAGNOSTIC IMAGING REPORT Patient: IDALIA QUINN : 1975 Age: 43 Sex: M MR #: [id number] DOS: 12/23/18 1750 Ordering MD: MICHAEL JOY MD Location: E/R Room/Bed: PROCEDURE: Chest x-ray CLINICAL INDICATION: Shortness of breath TECHNIQUE: Chest single view COMPARISON: 09/05/2018 FINDINGS: The heart is normal in size. The pulmonary vessels are normal in caliber. The lungs are clear. The costophrenic angles are sharp. There is a lucent area in the lateral portion of the left scapula without central sclerotic focus. This may represent a small osteoid osteoma or be artifactual. IMPRESSION: No acute cardiopulmonary disease. Questionable small lucent lesion in the lateral portion of the left scapula versus artifact. RPTAT: HH .Jose Alfredo Heard MD, MD Date Time Electronically viewed and signed by .Jose Alfredo Heard MD, on 12/23/2018 18:40 .W/ CC: MICHAEL JOY MD [id number] [place] [address] Radiology Main Line: [phone] DIAGNOSTIC IMAGING REPORT Patient: IDALIA QUINN : 1975 Age: 43 Sex: M MR #: [id number] DOS: 12/23/18 1750 Ordering MD: MICHAEL JOY MD Location: E/R Room/Bed: PROCEDURE: XR Foot. CLINICAL INDICATION: Right foot pain . TECHNIQUE: 3 views of the right foot are available for review. COMPARISON: DR FOOT 09/04/2018; JACOB DX FOOT 05/25/2014; SD CR FOOT 01/15/2014; SD DX FOOT 01/15/2014; SD CR FOOT 10/14/2013; SD CR FOOT 09/10/2013; SD CR FOOT 07/28/2013 FINDINGS: There is bony destruction of the midfoot and hind foot including the head of the talus, anterior process of the calcaneus, navicular, cuboid and cuneiforms with dorsal and medial dislocation of the talonavicular and calcaneocuboid joints and dorsal dislocation of the second through fifth tarsometatarsal joints. There is resultant pes planus and forefoot varus. There is hypertrophic bone formation and debris. There is destruction of the head and neck of the fifth metatarsal. The tapered fifth metatarsal shaft is well corticated and is fused to the base of the fourth metatarsal. There are hammertoe deformities There is moderate osteoarthritis of the talonavicular joint with joint space narrowing and osteophytes. There is diffuse soft tissue edema. IMPRESSION: 1. 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 No significant interval change. 2. Diffuse soft tissue edema. RPTAT: HH .Hetal Lozano MD, MD Date Time Electronically viewed and signed by .Hetal Lozano MD, MD on 12/23/2018 18:48 .G/ CC: MICHAEL JOY MD [id number] EKG: Read by emergency physician Rate/Rhythm: Normal Sinus Rhythm 100 beats/min QRS, ST, T-waves: No ST elevation, no T inversion, inferior Q's Impression: Abnormal EKG UA ESR Pending MEDICAL MAKING DECISION: The patient is presenting with acute right foot di abetic ulcer, treated with vancomycin IV, Zosyn IV and [place] 10 mg p.o. for pain The differential diagnoses considered include but are not limited to cellulitis, abscess, osteomyelitis Consultation: He was evaluated by supervisor epoxy fabrication in the ER Departure Diagnosis: Primary Impression: Diabetic ulcer of foot, limited to breakdown of skin Additional Impressions: Thrombopenia Anemia Condition: Stable Comments I discussed the findings with the patient. I notified the patient with Dr. Islas at 7:55p via [employer], who was made aware of the lab, the treatment, the patient condition. The patient is admitted to [facility] Disclaimer: Inadvertent spelling and grammatical errors are likely due to EHR/dictation software use and do not reflect on the overall quality of patient care. Also, please note that the electronic time recorded on this note does not necessarily reflect the actual time of the patient encounter. MICHAEL JOY MD Dec 23, 2018 17:30
[2018-12-23] MEDS ORDERED: VANCOMYCIN 1 GM (PMX) 250 ML IVPB ONE (18:00)
[2018-12-23] MEDS ORDERED: PIPER-TAZO 3.375 GM IV (PMX) 100 ML IVPB ONE (18:00)
[2018-12-23] MEDS ORDERED: HYDROCODONE/APAP (10/325) TAB PO ONE (20:00)
[2018-12-24] VITALS (12 sets, daily range): BP systolic 96–157; BP diastolic 51–79; PULSE 94–110; RESP 12–20; Ht 165.1 cm; Wt 142.7 kg
[2018-12-24] MEDS ORDERED: ACETAMINOPHEN 325 MG TAB PO PRN (02:00)
[2018-12-24] MEDS ORDERED: ONDANSETRON 4 MG INJ IV PRN ×2 (02:00→20:00)
[2018-12-24] MEDS ORDERED: NACL 0.9% 3 ML SYG IV SCH (02:00)
[2018-12-24] MEDS ORDERED: HYDROCODONE/APAP (5/325) TAB PO PRN ×2 (02:00)
[2018-12-24] MEDS ORDERED: ALBUTEROL/IPRATROPIUM (NEB) 3 ML AMP HHN PRN (02:00)
[2018-12-24] MEDS: ACCU-CHEK XX SCH (02:00)
[2018-12-24] MEDS ORDERED: VANCOMYCIN 1 GM in 250 ML IVPB ONE (02:30)
[2018-12-24] MEDS ORDERED: LORAZEPAM 1 MG TAB PO SCH ×2 (02:56→21:00)
[2018-12-24] MEDS ORDERED: ZOLPIDEM 5 MG TAB PO SCH ×2 (02:57→21:00)
[2018-12-24] MEDS ORDERED: GLUCOSE GEL 15 GRAM TUBE PO PRN ×2 (03:30)
[2018-12-24] MEDS ORDERED: DEXTROSE 50% 50 ML SYRINGE IV PRN ×2 (03:30)
[2018-12-24] MEDS ORDERED: GLUCAGON 1 MG INJ IM PRN (03:30)
[2018-12-24] MEDS ORDERED: GLUCOSE GEL 15 GRAM TUBE BUCCAL PRN (03:30)
[2018-12-24] MEDS: CEFEPIME 1GM/50 ML (PMX) 50 ML IVPB SCH ×3 (04:22→22:43)
[2018-12-24] MEDS ORDERED: PENDING SANTYL ORDER FOR WOUND CARE XX PRN (05:30)
--- NOTE | 2018-12-24 06:38 | HP ---
Date/Time of Note Date/Time of Note DATE: 12/24/18 TIME: 06:34 Assessment/Plan VTE Prophylaxis Risk score (from [facility])>0 risk: 9 SCD applied (from Ns): Yes Pharmacological prophylaxis: heparin Lines/Catheters [facility] [place] Assessment/Plan Assessment/Plan 1. Acute on chronic right diabetic foot ulcer -IV antibiotic -Podiatry consult 2. Sepsis: As evidenced by leukocytosis and tachycardia: Secondary to above -Continue antibiotic, follow-up culture results. Podiatry following 3. Hypertension: Continue meds. Adjust as needed 4. Diabetes: Continue meds 5. Acute renal insufficiency: Continue IV fluid. Expect improvement in a.m., otherwise renal ultrasound and nephrology consult as well as urine electrolytes 6. Hypothyroidism: Synthroid 7. Depression: Continue Cymbalta Result Diagram: 12/23/18185612/23/181856 Results 24hrs Laboratory Tests Test 12/23/18 18:56 12/23/18 18:57 12/23/18 19:56 12/23/18 21:09 POC Venous Lactate 1.4 White Blood Count 16.1 #H Red Blood Count 5.73 # Hemoglobin 13.7 #L Hematocrit 45.4 # Mean Corpuscular 79.2 L Volume Mean Corpuscular 23.9 L Hemoglobin Mean Corpuscular 30.2 L Hemoglobin Concent Red Cell 15.9 H Distribution Width Platelet Count 75 #L Mean Platelet Volume Immature 0.500 H Granulocytes % Neutrophils % Segmented 85 H Neutrophils % (Manual) Lymphocytes % Lymphocytes % 7 L (Manual) Reactive Lymphocytes 2 H % (Manual) Monocytes % Monocytes % (Manual) 6 Eosinophils % Basophils % Nucleated Red Blood 0.0 Cells % Immature 0.080 H Granulocytes # Neutrophils # Lymphocytes (Manual) 1.1 Lymphocytes # Reactive Lymphocytes 0.3 H # Monocytes # Monocytes # (Manual) 0.9 Eosinophils # Basophils # Nucleated Red Blood Cells # Platelet Estimate DECREASED Polychromasia 1+ Poikilocytosis 2+ Anisocytosis 2+ Microcytosis 2+ Tear Drop Cells 2+ Ovalocytes 1+ Erythrocyte 17 H Sedimentation Rate Prothrombin Time 15.0 H Prothrombin Time 1.2 Ratio INR International 1.17 Normalized Ratio Activated 30.9 Partial Thromboplast Time Sodium Level 136 Potassium Level 4.5 Chloride Level 98 Carbon Dioxide Level 25 Anion Gap 13 Blood Urea Nitrogen 23 H Creatinine 1.47 H Est Glomerular 52 L Filtrat Rate mL/min Glucose Level 278 H Calcium Level 9.5 Total Bilirubin 0.8 Direct Bilirubin 0.00 Indirect Bilirubin 0.8 Aspartate Amino 17 Transf (AST/SGOT) Alanine 24 Aminotransferase (AL T/SGPT) Alkaline Phosphatase 117 Total Protein 8.3 H Albumin 4.4 Globulin 3.90 H Albumin/Globulin 1.12 Ratio Urine Color STRAW Urine Clarity CLEAR Urine pH 5.0 Urine Specific 1.025 [place] Urine Ketones NEGATIVE Urine Nitrite NEGATIVE Urine Bilirubin NEGATIVE Urine Urobilinogen NEGATIVE Urine Leukocyte NEGATIVE Esterase Urine Hemoglobin NEGATIVE Urine Glucose 3+ H Urine Total Protein NEGATIVE Lactic Acid Level 1.5 Test 12/23/18 23:40 12/24/18 01:03 12/24/18 02:58 Lactic Acid Level 1.2 Bedside Glucose 225 H 258 H HPI/ROS Admit Date/Time Admit Date/Time Dec 23, 2018 at 19:59 Hx of Present Illness Patient is is a 43-year-old morbidly obese male with a history of hypertension, diabetes, hypothyroidism, Charcot foot, bilateral foot ulcer with a history of right foot debridement and skin graft. Patient presented to ER complaining of worsening right foot ulcer. He reports that wound has been draining pus. He said he follows up closely with his client professional, Dr. Lunsford. He was seen yesterday and was prescribed antibiotic. He was also seen in the ER by him. Who presents the ER, he was tachycardic with a heart rate of 120. Labs shows a WBC of 16,000. x-ray shows the followin. 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 No significant interval change. 2. Diffuse soft tissue edema. PMH/Family/Social Past Medical History Medical History: other (See HPI) Medications Current Medications IV Flush (NS 3 ml) 3 ml PER PROTOCOL IV ; Start 12/24/18 at 02:00 Ondansetron HCl (Zofran Inj) 4 mg Q6H PRN IV NAUSEA/VOMITING; Start 12/24/18 at 02:00 Acetaminophen (Tylenol Tab) 650 mg Q6H PRN PO .PAIN 1-3 OR TEMP; Start 12/24/18 at 02:00 Acetaminophen/ Hydrocodone Bitart ([place] (5/325)) 1 tab Q6H PRN PO .MOD PAIN 4- 6; Start 12/24/18 at 02:00 Acetaminophen/ Hydrocodone Bitart ([place] (5/325)) 2 tab Q6H PRN PO .SEVERE PAIN 7-10 Last administered on 12/24/18at 01:51; Admin Dose 2 TAB; Start 12/24/18 at 02:00 Albuterol/ Ipratropium (Duoneb) 3 ml Q2H RESP THERAPY PRN HHN SHORTNESS OF BREATH; Start 12/24/18 at 02:00 Duloxetine HCl (Cymbalta) 60 mg DAILY PO ; Start 12/24/18 at 09:00 Insulin Aspart (Novolog Insulin Pen) 10 unit WITH MEALS SC ; Start 12/24/18 at 07:35 Levothyroxine Sodium (Synthroid) 50 mcg QAM PO ; Start 12/24/18 at 09:00 Metformin HCl (Glucophage) 1,000 mg BID WITH MEALS PO ; Start 12/24/18 at 07:35 Rivaroxaban (Xarelto) 20 mg WITH DINNER PO ; Start 12/24/18 at 17:35 Vancomycin HCl (Vanco Iv Per Pharmacy) VANCOMYCIN PER PHARMACY PER PROTOCOL XX ; Start 12/24/18 at 09:00 Diagnostic Test (Pha) (Accu-Chek) 1 ea 02 XX Last administered on 12/24/18at 02:00; Admin Dose 1 EA; Start 12/24/18 at 02:00 Insulin Aspart (Novolog Insulin Pen) NOVOLOG *MODERATE* ALGORITHM WITH MEALS BEDTIME SC ; Start 12/24/18 at 07:35 Vancomycin/Sodium Chloride 250 ml @ 83.333 mls/ hr Q12H IVPB ; Start 12/24/18 at 16:00 Miscellaneous Information (*Rx Drug Level Order Reminder*) VANCOMYCIN TROUGH 12/25 AT 1500 1500 ONCE XX ; Start 12/25/18 at 15:00; Stop 12/25/18 at 15:01 Cefepime HCl 50 ml @ 100 mls/hr Q12 IVPB Last administered on 12/24/18at 04:22; Admin Dose 100 MLS/HR; Start 12/24/18 at 03:00 Lorazepam (Ativan) 1 mg QHS PO Last administered on 12/24/18at 03:05; Admin Dose 1 MG; Start 12/24/18 at 02:56 Zolpidem Tartrate (Ambien) 10 mg HS PO Last administered on 12/24/18at 03:05; Admin Dose 10 MG; Start 12/24/18 at 02:57 Insulin Glargine (Lantus) 30 units HS SC ; Start 12/24/18 at 21:00 Miscellaneous Information 1 ea NOTE XX ; Start 12/24/18 at 03:30 Glucose (Glutose) 15 gm Q15M PRN PO DECREASED GLUCOSE; Start 12/24/18 at 03:30 Glucose (Glutose) 22.5 gm Q15M PRN PO DECREASED GLUCOSE; Start 12/24/18 at 03:30 Dextrose (D50w Syringe) 25 ml Q15M PRN IV DECREASED GLUCOSE; Start 12/24/18 at 03:30 Dextrose (D50w Syringe) 50 ml Q15M PRN IV DECREASED GLUCOSE; Start 12/24/18 at 03:30 Glucagon (Glucagen) 1 mg Q15M PRN IM DECREASED GLUCOSE; Start 12/24/18 at 03:30 Glucose (Glutose) 15 gm Q15M PRN BUCCAL DECREASED GLUCOSE; Start 12/24/18 at 03:30 Miscellaneous Information (Pending [facility] Order For Wound Care) This patient chambers... PRN PRN XX WOUND CARE; Start 12/24/18 at 05:30 Coded Allergies: gabapentin (Verified Allergy, Severe, SUICIDAL THOUGHS, 12/23/18) morphine (Verified Allergy, Intermediate, 12/23/18) pregabalin (Verified Allergy, Mild, SUICIDAL, 12/23/18) Uncoded Allergies: LYRICA (Allergy, Intermediate, WEIGHT GAIN, 01/01/13) TEGAMYCEIN (Allergy, Mild, 11/18/12) TEGAMYCIN (Allergy, Unknown, 09/04/18) Past Surgical History Past Surgical Hx: other (See HPI) Family History Significant Family History: no pertinent family hx Social History Alcohol Use: none Smoking Status: Unknown if ever smoked Drug Use: none Exam/Review of Systems Vital Signs Vitals Vital Signs Date Temp Pulse Resp B/P (MAP) Pulse Ox O2 O2 Flow FiO2 Time Delivery Rate 12/24/18 98.9 100 18 103/65 94 02:25 (78) 12/24/18 Room Air 02:09 Intake and Output 12/23/18 12/23/18 12/24/18 1515:00 23:00 07:00 IntakeIntake Total 168 ml OutputOutput Total 400 ml BalanceBalance -232 ml Exam Constitutional: alert, oriented, well developed Head: normocephalic, atraumatic Eyes: EOMI, PERRL Respiratory: clear to auscultation Cardiovascular: regular rate and rhythm, nl pulses Gastrointestinal: soft, non-tender Extremities: other (On the ventral aspect of the right foot there is an ulcer. Several well-healed scar on the left foot) NELY CAAL MD Dec 24, 2018 06:38
[2018-12-24] MEDS ORDERED: VANCOMYCIN IV PER PHARMACY XX SCH ×2 (07:00→09:00)
[2018-12-24] MEDS ORDERED: metFORMIN 500 MG TAB PO SCH (07:35)
[2018-12-24] MEDS: DULOXETINE 30 MG CAP DR PO SCH (08:34)
[2018-12-24] MEDS: LEVOTHYROXINE 50 MCG TAB PO SCH (08:35)
[2018-12-24] MEDS: INSULIN ASPART [NOVOLOG] 3 ML PEN SC SCH ×8 (08:38→22:46)
[2018-12-24] MEDS ORDERED: CEFEPIME 1GM/50 ML (PMX) 50 ML IVPB SCH ×2 (09:00)
--- NOTE | 2018-12-24 10:38 | CONS ---
Assessment/Plan Assessment/Plan Assessment/Plan (Daily) R foot diabetic ulcer R foot cellulitis B/l charcot neuroarthropathy DM2 with peripheral neuropathy Morbidly obese Plan Patient is kept NPO and plan for OR procedure today. Awaiting wound cultures and patient would benefit from ID consult. MRI and non invasive arterial studies ordered. Continue with dressing changes betadine and 4x4 gauze with kerlix. Non weight bearing to right foot. Patient uses his wheelchair and can use left foot for transfers from bed to chair. Consultation Date/Type/Reason Admit Date/Time Dec 23, 2018 at 19:59 Date/Time of Note DATE: 12/24/18 TIME: 10:36 Hx of Present Illness 43 y/o diabetic M with hx of ulcerations and charcot deformities presents to the floor with right foot ulceration and cellulitis. Patient is being followed up in outpatient clinic. He noticed yesterday increased swelling, redness, and pain to his right foot along with fevers. 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 Patient has been on antibiotics and has been receiving local wound care. Denies additional pedal complaints. ROS negative except for HPI Past Medical History morbidly obese, hypertension, diabetes, hypothyroidism, Charcot foot, bilateral foot ulcer Home Meds Reported Medications Lisinopril* (Lisinopril*) 20 Mg Tablet, 20 MG PO DAILY, #30 TAB 09/04/18 Lorazepam* (Lorazepam*) 1 Mg Tablet, 1 MG PO QHS TAKE 1 TABLET BY MOUTH AT BEDTIME 09/04/18 Levothyroxine Sodium* (Levothyroxine Sodium*) 50 Mcg Tablet, 50 MCG PO QAM for 90 Days, #90 TAKE 1 TABLET BY MOUTH EVERY DAY 09/04/18 Rivaroxaban* (Xarelto*) 20 Mg Tablet, 20 MG PO DAILY for 30 Days, #30 09/04/18 Insulin Glargine,Hum.rec.anlog (Basaglar Kwikpen U-100) 100 Unit/1 Ml Insuln.pen, 30 UNIT SC QHS, EA 09/04/18 Insulin Aspart* (Novolog Insulin Pen*) 100 Unit/Ml Soln, 20 UNIT SC WITH MEALS, EA 09/04/18 Duloxetine Hcl* (Cymbalta*) 60 Mg Capsule.dr, 60 MG PO DAILY, CAP 09/04/18 Metformin* (Glucophage*) 1,000 Mg Tablet, 1000 MG PO BID WITH MEALS 11/18/12 Zolpidem Tartrate* (Zolpidem Tartrate*) 10 Mg Tablet, 10 MG PO HS 11/18/12 Discontinued Reported Medications Sitagliptin* (Januvia*) 100 Mg Tablet, 100 MG PO DAILY for 30 Days, #30 TAKE 1 TABLET BY MOUTH EVERY DAY 09/04/18 Discontinued Scripts Vancomycin HCl (Vancomycin HCl) 1 Gm Vial, 1 GM IV .PHARMACY for 28 Days, VIAL Prov:ANDREW ISABEL Arline BOWEN 09/07/18 Medications Current Medications IV Flush (NS 3 ml) 3 ml PER PROTOCOL IV ; Start 12/24/18 at 02:00 Ondansetron HCl (Zofran Inj) 4 mg Q6H PRN IV NAUSEA/VOMITING; Start 12/24/18 at 02:00 Acetaminophen (Tylenol Tab) 650 mg Q6H PRN PO .PAIN 1-3 OR TEMP; Start 12/24/18 at 02:00 Acetaminophen/ Hydrocodone Bitart ([place] (5/325)) 1 tab Q6H PRN PO .MOD PAIN 4- 6 Last administered on 12/24/18at 07:29; Admin Dose 1 TAB; Start 12/24/18 at 02:00 Acetaminophen/ Hydrocodone Bitart ([place] (5/325)) 2 tab Q6H PRN PO .SEVERE PAIN 7-10 Last administered on 12/24/18at 01:51; Admin Dose 2 TAB; Start 12/24/18 at 02:00 Albuterol/ Ipratropium (Duoneb) 3 ml Q2H RESP THERAPY PRN HHN SHORTNESS OF BREATH; Start 12/24/18 at 02:00 Duloxetine HCl (Cymbalta) 60 mg DAILY PO Last administered on 12/24/18at 08:34; Admin Dose 60 MG; Start 12/24/18 at 09:00 Insulin Aspart (Novolog Insulin Pen) 10 unit WITH MEALS SC Last administered on 12/24/18at 08:38; Admin Dose 10 UNIT; Start 12/24/18 at 07:35 Levothyroxine Sodium (Synthroid) 50 mcg QAM PO Last administered on 12/24/18at 08:35; Admin Dose 50 MCG; Start 12/24/18 at 09:00 Rivaroxaban (Xarelto) 20 mg WITH DINNER PO ; Start 12/24/18 at 17:35 Vancomycin HCl (Vanco Iv Per Pharmacy) VANCOMYCIN PER PHARMACY PER PROTOCOL XX ; Start 12/24/18 at 09:00 Diagnostic Test (Pha) (Accu-Chek) 1 ea 02 XX Last administered on 12/24/18at 02:00; Admin Dose 1 EA; Start 12/24/18 at 02:00 Insulin Aspart (Novolog Insulin Pen) NOVOLOG *MODERATE* ALGORITHM WITH MEALS BEDTIME SC Last administered on 12/24/18at 08:39; Admin Dose 4 UNIT; Start 12/24/18 at 07:35 Vancomycin/Sodium Chloride 250 ml @ 83.333 mls/ hr Q12H IVPB ; Start 12/24/18 at 16:00 Miscellaneous Information (*Rx Drug Level Order Reminder*) VANCOMYCIN TROUGH 12/25 AT 1500 1500 ONCE XX ; Start 12/25/18 at 15:00; Stop 12/25/18 at 15:01 Cefepime HCl 50 ml @ 100 mls/hr Q12 IVPB Last administered on 12/24/18at 04:22; Admin Dose 100 MLS/HR; Start 12/24/18 at 03:00 Insulin Glargine (Lantus) 30 units HS SC ; Start 12/24/18 at 21:00 Miscellaneous Information 1 ea NOTE XX ; Start 12/24/18 at 03:30 Glucose (Glutose) 15 gm Q15M PRN PO DECREASED GLUCOSE; Start 12/24/18 at 03:30 Glucose (Glutose) 22.5 gm Q15M PRN PO DECREASED GLUCOSE; Start 12/24/18 at 03:30 Dextrose (D50w Syringe) 25 ml Q15M PRN IV DECREASED GLUCOSE; Start 12/24/18 at 03:30 Dextrose (D50w Syringe) 50 ml Q15M PRN IV DECREASED GLUCOSE; Start 12/24/18 at 03:30 Glucagon (Glucagen) 1 mg Q15M PRN IM DECREASED GLUCOSE; Start 12/24/18 at 03:30 Glucose (Glutose) 15 gm Q15M PRN BUCCAL DECREASED GLUCOSE; Start 12/24/18 at 03:30 [facility] This patient chambers... PRN PRN XX WOUND CARE; Start 12/24/18 at 05:30 Povidone Iodine (Povidone-Iodine) 1 applic BID TOP ; Start 12/24/18 at 11:00 Zolpidem Tartrate (Ambien) 10 mg HS PRN PO INSOMNIA; Start 12/24/18 at 09:30 Allergies: Coded Allergies: gabapentin (Verified Allergy, Severe, SUICIDAL THOUGHS, 12/23/18) morphine (Verified Allergy, Intermediate, 12/23/18) pregabalin (Verified Allergy, Mild, SUICIDAL, 12/23/18) Uncoded Allergies: LYRICA (Allergy, Intermediate, WEIGHT GAIN, 01/01/13) TEGAMYCEIN (Allergy, Mild, 11/18/12) TEGAMYCIN (Allergy, Unknown, 09/04/18) Past Surgical History charcot reconstruction surgery, multiple debridements and skin grafts in the past. Family History Significant Family History: diabetes Social History Alcohol Use: none Smoking Status: Unknown if ever smoked Drug Use: none Exam/Review of Systems Exam Vitals Vital Signs Date Temp Pulse Resp B/P (MAP) Pulse Ox O2 O2 Flow FiO2 Time Delivery Rate 12/24/18 98.9 100 18 103/65 94 02:25 (78) 12/24/18 Room Air 02:09 Intake and Output 12/23/18 12/23/18 12/24/18 1515:00 23:00 07:00 IntakeIntake Total 168 ml OutputOutput Total 900 ml BalanceBalance -732 ml Exam DP/PT pulses palpable 1+ pitting edema Right foot erythema noted originating from the ulceration site Right plantar lateral foot ulceration fibrogranular measuring 1.5 x 1.4 x 1.6cm, probes to bone, there is serosanguinous drainage Absent protective sensations Collapse of the medial longitudinal arch Forefoot varus deformity noted to the right foot Muscle strength 5/5 in all compartments of the foot. Results Result Diagram: 12/24/18 1003 12/23/18 1857 Results 24hrs Laboratory Tests Test 12/23/18 18:56 12/23/18 18:57 12/23/18 19:56 12/23/18 21:09 POC Venous Lactate 1.4 White Blood Count 16.1 #H Red Blood Count 5.73 # Hemoglobin 13.7 #L Hematocrit 45.4 # Mean Corpuscular 79.2 L Volume Mean Corpuscular 23.9 L Hemoglobin Mean Corpuscular 30.2 L Hemoglobin Concent Red Cell 15.9 H Distribution Width Platelet Count 75 #L Mean Platelet Volume Immature 0.500 H Granulocytes % Neutrophils % Segmented 85 H Neutrophils % (Manual) Lymphocytes % Lymphocytes % 7 L (Manual) Reactive Lymphocytes 2 H % (Manual) Monocytes % Monocytes % (Manual) 6 Eosinophils % Basophils % Nucleated Red Blood 0.0 Cells % Immature 0.080 H Granulocytes # Neutrophils # Lymphocytes (Manual) 1.1 Lymphocytes # Reactive Lymphocytes 0.3 H # Monocytes # Monocytes # (Manual) 0.9 Eosinophils # Basophils # Nucleated Red Blood Cells # Platelet Estimate DECREASED Polychromasia 1+ Poikilocytosis 2+ Anisocytosis 2+ Microcytosis 2+ Tear Drop Cells 2+ Ovalocytes 1+ Erythrocyte 17 H Sedimentation Rate Prothrombin Time 15.0 H Prothrombin Time 1.2 Ratio INR International 1.17 Normalized Ratio Activated 30.9 Partial Thromboplast Time Sodium Level 136 Potassium Level 4.5 Chloride Level 98 Carbon Dioxide Level 25 Anion Gap 13 Blood Urea Nitrogen 23 H Creatinine 1.47 H Est Glomerular 52 L Filtrat Rate mL/min Glucose Level 278 H Calcium Level 9.5 Total Bilirubin 0.8 Direct Bilirubin 0.00 Indirect Bilirubin 0.8 Aspartate Amino 17 Transf (AST/SGOT) Alanine 24 Aminotransferase (AL T/SGPT) Alkaline Phosphatase 117 Total Protein 8.3 H Albumin 4.4 Globulin 3.90 H Albumin/Globulin 1.12 Ratio Urine Color STRAW Urine Clarity CLEAR Urine pH 5.0 Urine Specific 1.025 [place] Urine Ketones NEGATIVE Urine Nitrite NEGATIVE Urine Bilirubin NEGATIVE Urine Urobilinogen NEGATIVE Urine Leukocyte NEGATIVE Esterase Urine Hemoglobin NEGATIVE Urine Glucose 3+ H Urine Total Protein NEGATIVE Lactic Acid Level 1.5 Test 12/23/18 23:40 12/24/18 01:03 12/24/18 02:58 12/24/18 08:26 Lactic Acid Level 1.2 Bedside Glucose 225 H 258 H 212 Test 12/24/18 10:03 White Blood Count 7.6 # Red Blood Count 5.00 Hemoglobin 12.0 L Hematocrit 39.2 L Mean Corpuscular 78.4 L Volume Mean Corpuscular 24.0 L Hemoglobin Mean Corpuscular 30.6 L Hemoglobin Concent Red Cell 15.9 H Distribution Width Platelet Count 57 #L Mean Platelet Volume Immature 0.400 Granulocytes % Neutrophils % 87.3 H Lymphocytes % 6.9 L Monocytes % 5.3 Eosinophils % 0.0 Basophils % 0.1 Nucleated Red Blood 0.0 Cells % Immature 0.030 Granulocytes # Neutrophils # 6.6 Lymphocytes # 0.5 L Monocytes # 0.4 Eosinophils # 0.0 Basophils # 0.0 Nucleated Red Blood 0.0 Cells # Medications Medication Current Medications IV Flush (NS 3 ml) 3 ml PER PROTOCOL IV ; Start 12/24/18 at 02:00 Ondansetron HCl (Zofran Inj) 4 mg Q6H PRN IV NAUSEA/VOMITING; Start 12/24/18 at 02:00 Acetaminophen (Tylenol Tab) 650 mg Q6H PRN PO .PAIN 1-3 OR TEMP; Start 12/24/18 at 02:00 Acetaminophen/ Hydrocodone Bitart ([place] (5/325)) 1 tab Q6H PRN PO .MOD PAIN 4- 6 Last administered on 12/24/18at 07:29; Admin Dose 1 TAB; Start 12/24/18 at 02:00 Acetaminophen/ Hydrocodone Bitart ([place] (5/325)) 2 tab Q6H PRN PO .SEVERE PAIN 7-10 Last administered on 12/24/18at 01:51; Admin Dose 2 TAB; Start 12/24/18 at 02:00 Albuterol/ Ipratropium (Duoneb) 3 ml Q2H RESP THERAPY PRN HHN SHORTNESS OF BREATH; Start 12/24/18 at 02:00 Duloxetine HCl (Cymbalta) 60 mg DAILY PO Last administered on 12/24/18at 08:34; Admin Dose 60 MG; Start 12/24/18 at 09:00 Insulin Aspart (Novolog Insulin Pen) 10 unit WITH MEALS SC Last administered on 12/24/18at 08:38; Admin Dose 10 UNIT; Start 12/24/18 at 07:35 Levothyroxine Sodium (Synthroid) 50 mcg QAM PO Last administered on 12/24/18at 08:35; Admin Dose 50 MCG; Start 12/24/18 at 09:00 Rivaroxaban (Xarelto) 20 mg WITH DINNER PO ; Start 12/24/18 at 17:35 Vancomycin HCl (Vanco Iv Per Pharmacy) VANCOMYCIN PER PHARMACY PER PROTOCOL XX ; Start 12/24/18 at 09:00 Diagnostic Test (Pha) (Accu-Chek) 1 ea 02 XX Last administered on 12/24/18at 02:00; Admin Dose 1 EA; Start 12/24/18 at 02:00 Insulin Aspart (Novolog Insulin Pen) NOVOLOG *MODERATE* ALGORITHM WITH MEALS BEDTIME SC Last administered on 12/24/18at 08:39; Admin Dose 4 UNIT; Start 12/24/18 at 07:35 Vancomycin/Sodium Chloride 250 ml @ 83.333 mls/ hr Q12H IVPB ; Start 12/24/18 at 16:00 Miscellaneous Information (*Rx Drug Level Order Reminder*) VANCOMYCIN TROUGH 12/25 AT 1500 1500 ONCE XX ; Start 12/25/18 at 15:00; Stop 12/25/18 at 15:01 Cefepime HCl 50 ml @ 100 mls/hr Q12 IVPB Last administered on 12/24/18at 04:22; Admin Dose 100 MLS/HR; Start 12/24/18 at 03:00 Insulin Glargine (Lantus) 30 units HS SC ; Start 12/24/18 at 21:00 Miscellaneous Information 1 ea NOTE XX ; Start 12/24/18 at 03:30 Glucose (Glutose) 15 gm Q15M PRN PO DECREASED GLUCOSE; Start 12/24/18 at 03:30 Glucose (Glutose) 22.5 gm Q15M PRN PO DECREASED GLUCOSE; Start 12/24/18 at 03:30 Dextrose (D50w Syringe) 25 ml Q15M PRN IV DECREASED GLUCOSE; Start 12/24/18 at 03:30 Dextrose (D50w Syringe) 50 ml Q15M PRN IV DECREASED GLUCOSE; Start 12/24/18 at 03:30 Glucagon (Glucagen) 1 mg Q15M PRN IM DECREASED GLUCOSE; Start 12/24/18 at 03:30 Glucose (Glutose) 15 gm Q15M PRN BUCCAL DECREASED GLUCOSE; Start 12/24/18 at 03:30 Miscellaneous Information (Pending [facility] Order For Wound Care) This patient chambers... PRN PRN XX WOUND CARE; Start 12/24/18 at 05:30 Povidone Iodine (Povidone-Iodine) 1 applic BID TOP ; Start 12/24/18 at 11:00 Zolpidem Tartrate (Ambien) 10 mg HS PRN PO INSOMNIA; Start 12/24/18 at 09:30 MARIANGEL RODRIGUEZ DPM Dec 24, 2018 10:38
--- NOTE | 2018-12-24 12:57 | CONS ---
DATE OF ADMISSION: 12/23/2018 DATE OF CONSULTATION: 12/23/2018 HISTORY OF PRESENT ILLNESS: This is a 43-year-old gentleman with a chronic right foot ulceration, de layed wound healing, has been on antibiotics. Ulceration is secondary due to Charcot deformity, does have significant varus deformity from residual neuropathic fractures and presented to the emergency room due to redness, swelling foot as well as having a fever. The patient had been on Keflex. PAST MEDICAL HISTORY: Charcot deformity bilateral feet and ankles, hypertension, anxiety, diabetes, hypothyroidism, depression, anemia, chronic right foot diabetic foot ulceration. PAST SURGICAL HISTORY: Bilateral foot surgery, bilateral knee surgery, right wrist surgery, eye surg domenica, history of gastric sleeve. ALLERGIES: 1. GABAPENTIN. 2. MORPHINE. 3. PREGABALIN. MEDICATIONS: Include: 1. Vancomycin. 2. Zosyn. PHYSICAL EXAMINATION: VITAL SIGNS: Temperature 98.8, pulse is 102, respiratory rate 16, blood pressure 100/61, pulse oxime try is 100 on room air. GENERAL: The patient is alert, oriented, no acute distress. Regular respiration. HEENT: Head is normocephalic. Trachea is midline. The patient is obese. EXTREMITIES: He has bilateral varus deformities, right foot plantar aspect with ulceration measuring approximately 2 x 1 x 1 cm. At the lateral aspect, there is mild serosanguineous drainage. Ulcerat ion probes to bone. No acute instability of mid foot, hind foot. Mild edema, erythema extensive clovis chencho aspect of the foot. 2+ DP, PT pulse. LABORATORIES: WBC 16.1, hemoglobin 13.7, hematocrit 45.4, platelets 75. Sed rate is 17, glucose is 258. X-rays reveal marked soft tissue swelling, marked deformity with hypertrophic neuropathic chaves es at the Lisfranc's atrophic joint at the fifth MPJ from prior surgery. Wound cultures pending. ASSESSMENT: 1. Right foot cellulitis. 2. Differential diagnosis abscess, right foot. 3. Osteomyelitis, right foot. 4. History of Charcot deformity. 5. Obesity. 6. Diabetes type 2 with hyperglycemia. 7. Thrombocytopenia. PLAN: The patient will be admitted, will monitor. If ulceration has a persistent drainage will sche dule for operative intervention. Reviewed labs, x-rays. The patient, discussion with him and his wi fe, agree with vancomycin and Zosyn at this time. Obtain wound cultures. Nursing recommendations gi jakob for daily dressing changes. Dictated By: JOSÉ DE LA GARZA DPM RB/MO Conf#: [id number] DID#: [id number] CC: NELY CAAL MD;*EndCC*
--- NOTE | 2018-12-24 13:04 | CONS ---
DATE OF ADMISSION: 12/23/2018 DATE OF CONSULTATION: 12/24/2018 TYPE OF CONSULTATION: Infectious Disease. REASON FOR CONSULTATION: Antibiotic management. HISTORY OF PRESENT ILLNESS: Thony Martini is a 43-year-old male who comes in with leg pain, sent in by Inder Lunsford for Charcot joint. The patient presents to the emergency room with acute on chronic right foot diabetic ulcer pain and fever of [address] Lunsford started him on Cipro, but the p atient did not start until today. He complains of worsening pain and fever. He denies other pains. Past problems include: 1. Diabetes mellitus. 2. Charcot foot. 3. Hypertension. 4. Anxiety. 5. Depression. 6. Hypothyroidism. 7. Anemia of chronic disease. 8. Chronic right foot diabetic ulcer. 9. History of left lower extremity DVT. PAST SURGICAL HISTORY: Includes multiple bilateral foot surgery, bilateral knee surgery, right wrist surgery, eye surgery and a gastric sleeve. The patient has peripheral neuropathy. FAMILY HISTORY: Noncontributory. SOCIAL HISTORY: He does not smoke, drink or abuse drugs. ALLERGIES: GABAPENTIN, MORPHINE, PREGABALIN. HE IS ALLERGIC TO TOGAMYCIN. LABORATORY DATA: On admission, his white count was 16.1, H and H of 13.7 and 45.4, platelet count 75 ,000. BUN and creatinine 23/1.47, glucose of 278. PHYSICAL EXAMINATION: VITAL SIGNS: Stable. He is afebrile. SKIN: Without generalized rash. HEENT: Within normal limits. NECK: Supple. LYMPH NODES: None palpable. CHEST: Decreased breath sounds at the bases. HEART: Tachycardic. ABDOMEN: Soft, nontender, nondistended, without organosplenomegaly or masses. EXTREMITIES: He has right foot which is edematous, erythematous. He has a chronic diabetic ulcer on his plantar surface of his right foot. RECTAL AND GENITAL: Deferred. NEUROLOGIC: He has diabetic neuropathy. White count as noted was 16.1 with 85% neutrophils. He was started on vancomycin and Zosyn. No acut e cardiopulmonary disease. The foot shows marked deformity of the right foot with hypertrophic neuro pathic joint involving the anterior hindfoot and midfoot as well as a Lisfranc joint and a suspected. neuropathic joint at the fifth metatarsophalangeal joint. No significant interval change. Diffuse soft tissue edema. The patient presents with acute right foot diabetic ulcer on vancomycin, Zosyn and [place]. He was see n by podiatry in the emergency room. Will await what Dr. Lunsford plans, he may want to debride the w ounds. I think that he probably will. We will continue on vancomycin. The patient received cefepim e and Zosyn. He is currently on cefepime. I will dictate my findings to Dr. Lunsford and the hospita list. Dictated By: SUMEET CRUMP MD, JD/NTS Conf#: [id number] DID#: [id number] CC: NELY CAAL MD;*End*
[2018-12-24] MEDS: POVIDONE IODINE 10% 28.4 GM OINT TOP SCH ×2 (15:29→21:00)
[2018-12-24] MEDS: VANCOMYCIN 1.5 GM/NS 250 ML 250 ML IVPB SCH (16:19)
--- NOTE | 2018-12-24 16:19 | PREAC ---
Date/Time of Note Date/Time of Note DATE: 12/24/18 TIME: 16:18 Anesthesia Eval and Record Evaluation Time Pre-Procedure Interview DATE: 12/24/18 TIME: 16:18 Age 43 Sex male NPO: 8 hrs Preoperative diagnosis charcot deformity Planned procedure right foot incision and drainage with bone biopsy Past Medical History Past Medical History: Includes Cardio: HTN Endo: Diabetes, Hypothyroid GI: Morbid obesity Heme: Thrombocytopenia Psych: Anxiety Surgery & Anesthesia Issues No known issue Meds Anticoagulation: No Beta Epi within 24 hr: No Reason Beta Epi not given: Pt. not on B-Epi Reported Medications Lisinopril* (Lisinopril*) 20 Mg Tablet, 20 MG PO DAILY, #30 TAB 09/04/18 Lorazepam* (Lorazepam*) 1 Mg Tablet, 1 MG PO QHS TAKE 1 TABLET BY MOUTH AT BEDTIME 09/04/18 Levothyroxine Sodium* (Levothyroxine Sodium*) 50 Mcg Tablet, 50 MCG PO QAM for 90 Days, #90 TAKE 1 TABLET BY MOUTH EVERY DAY 09/04/18 Rivaroxaban* (Xarelto*) 20 Mg Tablet, 20 MG PO DAILY for 30 Days, #30 09/04/18 Insulin Glargine,Hum.rec.anlog (Basaglar Kwikpen U-100) 100 Unit/1 Ml Insuln.pen, 30 UNIT SC QHS, EA 09/04/18 Insulin Aspart* (Novolog Insulin Pen*) 100 Unit/Ml Soln, 20 UNIT SC WITH MEALS, EA 09/04/18 Duloxetine Hcl* (Cymbalta*) 60 Mg Capsule.dr, 60 MG PO DAILY, CAP 09/04/18 Metformin* (Glucophage*) 1,000 Mg Tablet, 1000 MG PO BID WITH MEALS 11/18/12 Zolpidem Tartrate* (Zolpidem Tartrate*) 10 Mg Tablet, 10 MG PO HS 11/18/12 Discontinued Reported Medications Sitagliptin* (Januvia*) 100 Mg Tablet, 100 MG PO DAILY for 30 Days, #30 TAKE 1 TABLET BY MOUTH EVERY DAY 09/04/18 Discontinued Scripts Vancomycin HCl (Vancomycin HCl) 1 Gm Vial, 1 GM IV .PHARMACY for 28 Days, VIAL Prov:ANDREW ISABEL V. [facility] 09/07/18 Current Medications IV Flush (NS 3 ml) 3 ml PER PROTOCOL IV ; Start 12/24/18 at 02:00 Ondansetron HCl (Zofran Inj) 4 mg Q6H PRN IV NAUSEA/VOMITING; Start 12/24/18 at 02:00 Acetaminophen (Tylenol Tab) 650 mg Q6H PRN PO .PAIN 1-3 OR TEMP; Start 12/24/18 at 02:00 Acetaminophen/ Hydrocodone Bitart ([place] (5/325)) 1 tab Q6H PRN PO .MOD PAIN 4- 6 Last administered on 12/24/18at 07:29; Admin Dose 1 TAB; Start 12/24/18 at 02:00 Acetaminophen/ Hydrocodone Bitart ([place] (5/325)) 2 tab Q6H PRN PO .SEVERE PAIN 7-10 Last administered on 12/24/18at 01:51; Admin Dose 2 TAB; Start 12/24/18 at 02:00 Albuterol/ Ipratropium (Duoneb) 3 ml Q2H RESP THERAPY PRN HHN SHORTNESS OF BREATH; Start 12/24/18 at 02:00 Duloxetine HCl (Cymbalta) 60 mg DAILY PO Last administered on 12/24/18at 08:34; Admin Dose 60 MG; Start 12/24/18 at 09:00 Insulin Aspart (Novolog Insulin Pen) 10 unit WITH MEALS SC Last administered on 12/24/18at 12:46; Admin Dose 10 UNIT; Start 12/24/18 at 07:35 Levothyroxine Sodium (Synthroid) 50 mcg QAM PO Last administered on 12/24/18at 08:35; Admin Dose 50 MCG; Start 12/24/18 at 09:00 Rivaroxaban (Xarelto) 20 mg WITH DINNER PO ; Start 12/24/18 at 17:35 Vancomycin HCl (Vanco Iv Per Pharmacy) VANCOMYCIN PER PHARMACY PER PROTOCOL XX ; Start 12/24/18 at 09:00 Diagnostic Test (Pha) (Accu-Chek) 1 ea 02 XX Last administered on 12/24/18at 02:00; Admin Dose 1 EA; Start 12/24/18 at 02:00 Insulin Aspart (Novolog Insulin Pen) NOVOLOG *MODERATE* ALGORITHM WITH MEALS BEDTIME SC Last administered on 12/24/18at 12:47; Admin Dose 6 UNIT; Start 12/24/18 at 07:35 Vancomycin/Sodium Chloride 250 ml @ 83.333 mls/ hr Q12H IVPB ; Start 12/24/18 at 16:00 Miscellaneous Information (*Rx Drug Level Order Reminder*) VANCOMYCIN TROUGH 12/25 AT 1500 1500 ONCE XX ; Start 12/25/18 at 15:00; Stop 12/25/18 at 15:01 Cefepime HCl 50 ml @ 100 mls/hr Q12 IVPB Last administered on 12/24/18at 11:08; Admin Dose 100 MLS/HR; Start 12/24/18 at 03:00 Insulin Glargine (Lantus) 30 units HS SC ; Start 12/24/18 at 21:00 Miscellaneous Information 1 ea NOTE XX ; Start 12/24/18 at 03:30 Glucose (Glutose) 15 gm Q15M PRN PO DECREASED GLUCOSE; Start 12/24/18 at 03:30 Glucose (Glutose) 22.5 gm Q15M PRN PO DECREASED GLUCOSE; Start 12/24/18 at 03:30 Dextrose (D50w Syringe) 25 ml Q15M PRN IV DECREASED GLUCOSE; Start 12/24/18 at 03:30 Dextrose (D50w Syringe) 50 ml Q15M PRN IV DECREASED GLUCOSE; Start 12/24/18 at 03:30 Glucagon (Glucagen) 1 mg Q15M PRN IM DECREASED GLUCOSE; Start 12/24/18 at 03:30 Glucose (Glutose) 15 gm Q15M PRN BUCCAL DECREASED GLUCOSE; Start 12/24/18 at 03:30 Miscellaneous Information (Pending [facility] Order For Wound Care) This patient chambers... PRN PRN XX WOUND CARE; Start 12/24/18 at 05:30 Povidone Iodine (Povidone-Iodine) 1 applic BID TOP ; Start 12/24/18 at 11:00 Zolpidem Tartrate (Ambien) 10 mg HS PRN PO INSOMNIA; Start 12/24/18 at 09:30 Empaglifozin (Jardiance) 25 mg DAILY@08 PO ; Start 12/25/18 at 08:00 Meds reviewed: Yes Allergies Coded Allergies: gabapentin (Verified Allergy, Severe, SUICIDAL THOUGHS, 12/23/18) morphine (Verified Allergy, Intermediate, 12/23/18) pregabalin (Verified Allergy, Mild, SUICIDAL, 12/23/18) Uncoded Allergies: LYRICA (Allergy, Intermediate, WEIGHT GAIN, 01/01/13) TEGAMYCEIN (Allergy, Mild, 11/18/12) TEGAMYCIN (Allergy, Unknown, 09/04/18) Allergies Reviewed: Yes Labs/Studies Labs Reviewed: Reviewed by anesthesiologist Result Diagram: 12/24/18 1003 12/24/18 1003 Laboratory Tests 12/24/18 10:03 test: N/A Studies: CXR Pre-procedure Exam Last vitals Vital Signs Date Temp Pulse Resp B/P (MAP) Pulse Ox O2 O2 Flow FiO2 Time Delivery Rate 12/24/18 98.7 98 18 111/72 97 14:18 (85) 12/24/18 Room Air 02:09 Airway: Adequate mouth opening Mallampati: Mallampati II Teeth: Normal Lung: Normal Heart: Normal ASA Physical Status ASA physical status: 3 Emergency: None Planned Anesthetic General/MAC: MAC Pre-operative Attestations Prior to commencing anesthesia and surgery, the patient was re-evaluated, there was verification of: *The patient's identity *The results of appropriate recent lab work and preoperative vital signs *The above evaluation not changing prior to induction *Anesthetic plan, risk benefits, alternative and complications discussed with patient/family; questions answered; patient/family understands, accepts and wishes to proceed. IVETH EKRN Dec 24, 2018 16:19
[2018-12-24] MEDS ORDERED: BUPIVACAINE 0.5% (SDV) 30 ML INJ ONE (16:47)
[2018-12-24] MEDS ORDERED: LIDOCAINE 1% (MPF) 30 ML INJ ONE ×2 (16:47→20:07)
[2018-12-24] MEDS ORDERED: MIDAZOLAM 1 MG/ML 2 ML INJ ONE ×2 (16:49→19:18)
[2018-12-24] MEDS ORDERED: POLYMYXIN/BACITRACIN 1L IRRIG ONE (16:49)
[2018-12-24] MEDS ORDERED: HYDROmorphONE 2 MG/ML SYG ONE (16:51)
[2018-12-24] MEDS: RIVAROXABAN 20 MG TABLET PO SCH (16:58)
--- NOTE | 2018-12-24 17:31 | PN ---
Date/Time of Note Date/Time of Note DATE: 12/24/18 TIME: 17:30 Objective Vitals Vital Signs Date Temp Pulse Resp B/P (MAP) Pulse Ox O2 O2 Flow FiO2 Time Delivery Rate 12/24/18 98.7 98 18 111/72 97 14:18 (85) 12/24/18 Room Air 02:09 Intake and Output 12/23/18 12/23/18 12/24/18 1515:00 23:00 07:00 IntakeIntake Total 168 ml OutputOutput Total 900 ml BalanceBalance -732 ml Results Result Diagram: 12/24/18 1003 12/24/18 1003 Medications Medications Current Medications IV Flush (NS 3 ml) 3 ml PER PROTOCOL IV ; Start 12/24/18 at 02:00 Ondansetron HCl (Zofran Inj) 4 mg Q6H PRN IV NAUSEA/VOMITING; Start 12/24/18 at 02:00 Acetaminophen (Tylenol Tab) 650 mg Q6H PRN PO .PAIN 1-3 OR TEMP; Start 12/24/18 at 02:00 Acetaminophen/ Hydrocodone Bitart ([place] (5/325)) 1 tab Q6H PRN PO .MOD PAIN 4- 6 Last administered on 12/24/18at 07:29; Admin Dose 1 TAB; Start 12/24/18 at 02:00 Acetaminophen/ Hydrocodone Bitart ([place] (5/325)) 2 tab Q6H PRN PO .SEVERE PAIN 7-10 Last administered on 12/24/18at 01:51; Admin Dose 2 TAB; Start 12/24/18 at 02:00 Albuterol/ Ipratropium (Duoneb) 3 ml Q2H RESP THERAPY PRN HHN SHORTNESS OF BREATH; Start 12/24/18 at 02:00 Duloxetine HCl (Cymbalta) 60 mg DAILY PO Last administered on 12/24/18at 08:34; Admin Dose 60 MG; Start 12/24/18 at 09:00 Insulin Aspart (Novolog Insulin Pen) 10 unit WITH MEALS SC Last administered on 12/24/18at 12:46; Admin Dose 10 UNIT; Start 12/24/18 at 07:35 Levothyroxine Sodium (Synthroid) 50 mcg QAM PO Last administered on 12/24/18at 08:35; Admin Dose 50 MCG; Start 12/24/18 at 09:00 Rivaroxaban (Xarelto) 20 mg WITH DINNER PO ; Start 12/24/18 at 17:35 Vancomycin HCl (Vanco Iv Per Pharmacy) VANCOMYCIN PER PHARMACY PER PROTOCOL XX ; Start 12/24/18 at 09:00 Diagnostic Test (Pha) (Accu-Chek) 1 ea 02 XX Last administered on 12/24/18at 0 2:00; Admin Dose 1 EA; Start 12/24/18 at 02:00 Insulin Aspart (Novolog Insulin Pen) NOVOLOG *MODERATE* ALGORITHM WITH MEALS BEDTIME SC Last administered on 12/24/18at 12:47; Admin Dose 6 UNIT; Start 12/24/18 at 07:35 Vancomycin/Sodium Chloride 250 ml @ 83.333 mls/ hr Q12H IVPB Last administered on 12/24/18at 16:19; Admin Dose 83.333 MLS/HR; Start 12/24/18 at 16:00 Miscellaneous Information (*Rx Drug Level Order Reminder*) VANCOMYCIN TROUGH 12/25 AT 1500 1500 ONCE XX ; Start 12/25/18 at 15:00; Stop 12/25/18 at 15:01 Cefepime HCl 50 ml @ 100 mls/hr Q12 IVPB Last administered on 12/24/18at 11:08; Admin Dose 100 MLS/HR; Start 12/24/18 at 03:00 Insulin Glargine (Lantus) 30 units HS SC ; Start 12/24/18 at 21:00 Miscellaneous Information 1 ea NOTE XX ; Start 12/24/18 at 03:30 Glucose (Glutose) 15 gm Q15M PRN PO DECREASED GLUCOSE; Start 12/24/18 at 03:30 Glucose (Glutose) 22.5 gm Q15M PRN PO DECREASED GLUCOSE; Start 12/24/18 at 03:30 Dextrose (D50w Syringe) 25 ml Q15M PRN IV DECREASED GLUCOSE; Start 12/24/18 at 03:30 Dextrose (D50w Syringe) 50 ml Q15M PRN IV DECREASED GLUCOSE; Start 12/24/18 at 03:30 Glucagon (Glucagen) 1 mg Q15M PRN IM DECREASED GLUCOSE; Start 12/24/18 at 03:30 Glucose (Glutose) 15 gm Q15M PRN BUCCAL DECREASED GLUCOSE; Start 7/31/19 at 03:30 Miscellaneous Information (Pending [facility] Order For Wound Care) This patient chambers... PRN PRN XX WOUND CARE; Start 12/24/18 at 05:30 Povidone Iodine (Povidone-Iodine) 1 applic BID TOP ; Start 12/24/18 at 11:00 Zolpidem Tartrate (Ambien) 10 mg HS PRN PO INSOMNIA; Start 12/24/18 at 09:30 Empaglifozin (Jardiance) 25 mg DAILY@08 PO ; Start 12/25/18 at 08:00 VTE Prophylaxis Risk score (from [facility])>0 risk: 8 SCD applied (from [facility]): No SCD contraindication: other Lines/Catheters IV Catheter Type: Simms in Place: No Assessment/Plan Hospital Course Subjective No acute complaints except for foot pain, patient doing well Objective Physical exam General: Patient is laying in bed and answers questions appropriately Mentation: Patient is alert and oriented 4, Head: Normocephalic atraumatic Eyes: EOMI, pupils reactive to light Neck: Supple, nontender, midline Respiratory: Clear to auscultation bilaterally Cardiovascular: regular rate, no obvious murmurs Gastrointestinal: non-tender to palpation, bowel sounds heard. Neurological: Moves all extremities spontaneously Skin: Right foot ulcer, bandaged, Assessment and plan Acute on chronic right diabetic foot ulcer -Plan for debridement today -IV antibiotic -Infectious disease consulted -Podiatry consulted Sepsis -IV antibiotic -Cultures -Infectious disease recommendations appreciated Hypertension -Continue home meds Diabetes mellitus -Continue home meds except for metformin Acute kidney injury -Resolved, patient resolved with IV fluid Hypothyroidism -Continue home medications History of depression -Continue Cymbalta Disposition -Pending debridement today. AVERY HUSSEIN Dec 24, 2018 17:31
[2018-12-24] MEDS ORDERED: PROPOFOL 20 ML ONE (19:17)
[2018-12-24] MEDS ORDERED: CEFAZOLIN 1 GM INJ ONE (19:17)
--- NOTE | 2018-12-24 19:59 | HPN ---
Date/Time of Note Date/Time of Note DATE: 12/24/18 TIME: 19:59 Interval H&P Admission Note Pt. seen H&P reviewed: No system changes MARIANGEL RODRIGUEZ DPM Dec 24, 2018 19:59
[2018-12-24] MEDS ORDERED: FENTAnyl 50 MCG/ML VIAL IV PRN ×2 (20:00)
[2018-12-24] MEDS ORDERED: OXYCODONE/ACETAMINOPHEN (5/325) TAB PO PRN ×2 (20:00)
[2018-12-24] MEDS ORDERED: METOCLOPRAMIDE 10 MG INJ IV PRN (20:00)
[2018-12-24] MEDS ORDERED: HYDROmorphONE 1 MG/5 ML IV SYRINGE IV PRN ×2 (20:00)
[2018-12-24] MEDS ORDERED: LABETALOL HCL 20MG INJ IV PRN (20:00)
[2018-12-24] MEDS ORDERED: hydrALAzine 20 MG INJ IV PRN (20:00)
[2018-12-24] MEDS ORDERED: EPHEDrine 25 MG/5 ML SYG IV PRN (20:00)
[2018-12-24] MEDS ORDERED: ONDANSETRON 4 MG INJ ONE (20:11)
[2018-12-24] MEDS ORDERED: METOCLOPRAMIDE 10 MG INJ ONE (20:11)
[2018-12-24] MEDS ORDERED: DEXAMETHASONE 4 MG/ML 5 ML INJ ONE (20:11)
[2018-12-24] MEDS ORDERED: DIPHENHYDRAMINE 50 MG INJ ONE (20:12)
[2018-12-24] MEDS ORDERED: INSULIN GLARGINE [LANtus] 3 ML PEN SC SCH (21:00)
[2018-12-24] MEDS ORDERED: INSULIN GLARGINE [LANTus] (100 UNITS/ML) SYG SC SCH ×2 (21:00→23:30)
[2018-12-24] MEDS ORDERED: LABETALOL HCL 20MG INJ ONE (21:11)
[2018-12-24] MEDS ORDERED: hydrALAzine 20 MG INJ ONE (21:11)
--- NOTE | 2018-12-24 21:26 | PAC ---
Date/Time of Note Date/Time of Note DATE: 12/24/18 TIME: 21:25 Post-Anesthesia Notes Post-Anesthesia Note Last documented vital signs Vital Signs Date Temp Pulse Resp B/P (MAP) Pulse Ox O2 O2 Flow FiO2 Time Delivery Rate 12/24/18 98.1 98 18 111/72 97 face mask 21:21 (85) 12/24/18 Room Air 02:09 Activity: WNL Respiratory function: WNL Cardiovascular function: WNL Mental status: Baseline Pain reasonably controlled: Yes Hydration appropriate: Yes Nausea/Vomiting absent: Yes JENNIFER CISNEROS MD Dec 24, 2018 21:26
--- NOTE | 2018-12-24 21:26 | SIPON ---
Date/Time of Note Date/Time of Note DATE: 12/24/18 TIME: 21:18 Operative Report Preoperative Diagnosis Right foot abscess Right foot diabetic foot ulceration DM2 with PN Charcot foot varus deformity right foot h/o 5th metatarsal head resection Postoperative Diagnosis same Operation/Procedure Performed Right foot incision and drainage Bone biopsy 5th metatarsal Local rotation flap closure Abductor digiti muscle flap Application of wound vac Surgeon see signature line liaison inspection laboratory assistant Virgilio Cooper DPM Anesthesia: general Estimated blood loss: 10 - 50 ml's Transfusion Required none Specimen Bone path/ wound culture Grafts/Implants none Complications none JOSÉ DE LA GARZA DPM Dec 24, 2018 21:26
[2018-12-25] MEDS: ZOLPIDEM 5 MG TAB PO PRN (00:18)
[2018-12-25] MEDS: LORAZEPAM 1 MG TAB PO PRN (00:42)
[2018-12-25] MEDS: ACCU-CHEK XX SCH (02:00)
[2018-12-25 02:30] VITALS: BP 119/61; PULSE 110; RESP 17
[2018-12-25] MEDS: VANCOMYCIN 1.5 GM/NS 250 ML 250 ML IVPB SCH ×2 (04:18→17:27)
--- NOTE | 2018-12-25 07:15 | OPR ---
DATE OF OPERATION: 12/24/2018 SURGEON: José Lunsford DPM ELECTRICAL SOFTWARE ENGINEER: Virgilio Cooper DPM PREOPERATIVE DIAGNOSES: 1. Right foot abscess. 2. Right foot diabetic foot ulceration. 3. Diabetes type 2, peripheral neuropathy. 4. History of osteomyelitis fifth metatarsal. 5. Charcot foot. 6. Varus deformity, right foot. 7. History of fifth metatarsal head resection. 8. Thrombocytopenia. POSTOPERATIVE DIAGNOSES: 1. Right foot abscess. 2. Right foot diabetic foot ulceration. 3. Diabetes type 2, peripheral neuropathy. 4. History of osteomyelitis fifth metatarsal. 5. Charcot foot. 6. Varus deformity, right foot. 7. History of fifth metatarsal head resection. 8. Thrombocytopenia. PROCEDURES PERFORMED: 1. Right foot incision and drainage. 2. Bone biopsy fifth metatarsal. 3. Local rotation with advancement flap closure. 4. Abductor minimus digiti muscle flap. 5. Application of wound VAC. PATHOLOGY: Bone for pathology and wound culture. ANESTHESIA: General. HEMOSTASIS: Pressure ESTIMATED BLOOD LOSS: 50 mL. MATERIALS: 3-0 nylon. COMPLICATIONS: None. INDICATION FOR PROCEDURE: A 43-year-old gentleman with a chronic ulceration with a tunneling wound had been on several courses of antibiotics without improvement. Was admitted for worsening redness, fever and concern for deep space abscess. The patient had prior osteomyelitis with a fifth metatarsal head resection and has a soft tissue defect from the wound directly to the bone and discussed operative intervention. Discussed various treatment options. Discussed incision and drainage with possible wound closure and the patient was noted to have low platelet count preoperatively and he received FFP, 1 unit. Preoperatively, the patient has been on vancomycin and Zosyn, was given additional Ancef intraoperatively. Foot was marked in the preoperative holding area. All questions answered to his satisfaction. PROCEDURE IN DETAIL: The patient brought into the operating room and placed in the supine position. Formal timeout was performed. The foot was properly marked, confirmed by the surgical team and draped in usual sterile fashion. At this time, a metallic probe was used to inspect the base of the wound, probed to fifth metatarsal and had undermining toward the base of the fifth metatarsal and superiorly. There is a questionable area of fluctuance extending to the fourth MPJ on the ulcer was excised in a triangular fashion. Ulceration measured 2 x 1 cm. The bone was visualized and a portion of the fifth metatarsal was obtained for pathology. Wound cultures x2 were obtained. The wound was copiously irrigated with pulse lavage with bacitracin. At this time, the wound measurements were obtained, incisions were made adjacent to the base of the triangular soft tissue defect. Each adjacent flap measured approximately 2 times the size of the base of the defect. The skin was incised and a blunt dissection with a tenotomy additional purulence was identified at the fifth metatarsophalangeal joint. This was aspirated, irrigated and the adjacent flaps were mobilized. There is still a defect at the plantar aspect of the 5th metatarsal. At this time, the abductor was visualized and further dissected. The hemostat was used to obtain the tendon which was transected and the abductor digiti minimi was mobilized. On the undersurface of the muscle there was an abnormal, discolored granular material which was curetted and excised with rongeur. Incidentally, there was hair identified within the deep cavity of the wound and this was then further irrigated. The muscle was then mobilized to cover the plantar fifth metatarsal shaft and the adjacent flaps were mobilized, rotated, advanced and the vertical arm reapproximated with 3-0 nylon with simple interrupted sutures. The distal aspect of the flap was also closed primarily since there is no tension and a portion of the muscle was left exposed and left open to allow for drainage. The surgical wound was covered with Xeroform and a wound VAC was applied at 125 mmHg and set at a continuous setting. The patient tolerated the procedure well and was transferred to the PACU with vital signs stable. POSTOPERATIVE PLAN: We will follow up on the cultures and pathology results, monitor the drain output. The patient is nonweightbearing to the operative foot. Dictated By: JOSÉ HOGAN/MO Conf#: [id number] DID#: [id number] CC: NELY CAAL MD;*EndCC* MTDD
[2018-12-25 08:00] VITALS: BP 89/57; PULSE 98; RESP 24
[2018-12-25] MEDS: DULOXETINE 30 MG CAP DR PO SCH (08:29)
[2018-12-25] MEDS: LEVOTHYROXINE 50 MCG TAB PO SCH (08:29)
[2018-12-25] MEDS: POVIDONE IODINE 10% 28.4 GM OINT TOP SCH ×2 (08:29→20:32)
[2018-12-25] MEDS: EMPAGLIFLOZIN 10 MG TABLET PO SCH (08:33)
[2018-12-25] MEDS: CEFEPIME 1GM/50 ML (PMX) 50 ML IVPB SCH (08:34)
[2018-12-25] MEDS: INSULIN ASPART [NOVOLOG] 3 ML PEN SC SCH ×7 (08:36→20:32)
[2018-12-25 14:00] VITALS: BP 99/55; PULSE 90; RESP 18
--- NOTE | 2018-12-25 15:03 | CONS ---
Assessment/Plan Assessment/Plan Hospital Course (Demo Recall) Patient is alert feels good denies pain at the moment no fevers overnight WBC 8.6 neutrophils 93.8 BUN 25 creatinine 1.33 Microbiology: Wound cultures growing strep and staph species and staph aureus Antimicrobials: Vancomycin, cefepime Physical examination: This is a morbidly obese well-developed middle-aged white man who is alert in no distress. Head atraumatic normocephalic neck is supple chest rise symmetrical breath sounds diminished bases heart: S1-S2 abdomen soft bowel sounds present. Extremities with right foot dressing intact, wound VAC present. Assessment: 1. Right foot cellulitis with abscess, status post I&D 2. Diabetes 3. Acute possibly on chronic kidney disease 4. Morbid obesity 5. Charcoaled food Plan: Change cefepime to Rocephin, continue vancomycin, monitor kidney function closely and await for final cultures and pathology Consultation Date/Type/Reason Admit Date/Time Dec 23, 2018 at 19:59 Initial Consult Date Type of Consult id Date/Time of Note DATE: 12/25/18 TIME: 15:02 Exam/Review of Systems Exam Vitals Vital Signs Date Temp Pulse Resp B/P (MAP) Pulse Ox O2 O2 Flow FiO2 Time Delivery Rate 12/25/18 98.1 98 24 89/57 (68) 93 08:00 12/24/18 Room Air 21:53 12/24/18 8.0 21:21 Intake and Output 12/24/18 12/24/18 12/25/18 1515:00 23:00 07:00 IntakeIntake Total 610 ml 843 ml 1650 ml OutputOutput Total 1150 ml 450 ml 2450 ml BalanceBalance -540 ml 393 ml -800 ml Results Result Diagram: 12/25/18 0441 12/25/18 0441 Results 24hrs Laboratory Tests Test 12/24/18 18:27 12/24/18 21:21 12/24/18 22:34 12/25/18 04:41 Bedside Glucose 154 200 243 H White Blood Count 8.6 Red Blood Count 5.03 Hemoglobin 12.0 L Hematocrit 40.5 L Mean Corpuscular 80.5 L Volume Mean Corpuscular 23.9 L Hemoglobin Mean Corpuscular 29.6 L Hemoglobin Concen t Red Cell 15.9 H Distribution Width Platelet Count 47 L Mean Platelet Volume Immature 0.700 H Granulocytes % Neutrophils % 93.8 H Lymphocytes % 4.1 L Monocytes % 1.2 Eosinophils % 0.0 Basophils % 0.2 Nucleated Red 0.0 Blood Cells % Immature 0.060 H Granulocytes # Neutrophils # 8.1 H Lymphocytes # 0.4 L Monocytes # 0.1 L Eosinophils # 0.0 Basophils # 0.0 Nucleated Red 0.0 Blood Cells # Sodium Level 138 Potassium Level 5.1 Chloride Level 102 Carbon Dioxide 16 L Level Anion Gap 20 #H Blood Urea 25 H Nitrogen Creatinine 1.33 H Est Glomerular 58 L Filtrat Rate mL/min Glucose Level 385 H Calcium Level 9.0 Phosphorus Level 5.2 H Magnesium Level 2.0 Test 12/25/18 06:17 12/25/18 08:20 12/25/18 12:33 Lab Scanned BLOOD TRANSFUSION Report Bedside Glucose 405 *H 369 H Medications Medication Current Medications IV Flush (NS 3 ml) 3 ml PER PROTOCOL IV ; Start 12/24/18 at 02:00 Ondansetron HCl (Zofran Inj) 4 mg Q6H PRN IV NAUSEA/VOMITING; Start 12/24/18 at 02:00 Acetaminophen (Tylenol Tab) 650 mg Q6H PRN PO .PAIN 1-3 OR TEMP; Start 12/24/18 at 02:00 Acetaminophen/ Hydrocodone Bitart ([place] (5/325)) 1 tab Q6H PRN PO .MOD PAIN 4- 6 Last administered on 12/24/18at 07:29; Admin Dose 1 TAB; Start 12/24/18 at 02:00 Acetaminophen/ Hydrocodone Bitart ([place] (5/325)) 2 tab Q6H PRN PO .SEVERE PAIN 7-10 Last administered on 12/24/18at 01:51; Admin Dose 2 TAB; Start 12/24/18 at 02:00 Albuterol/ Ipratropium (Duoneb) 3 ml Q2H RESP THERAPY PRN HHN SHORTNESS OF BREATH; Start 12/24/18 at 02:00 Duloxetine HCl (Cymbalta) 60 mg DAILY PO Last administered on 12/25/18at 08:29; Admin Dose 60 MG; Start 12/24/18 at 09:00 Levothyroxine Sodium (Synthroid) 50 mcg QAM PO Last administered on 12/25/18at 08:29; Admin Dose 50 MCG; Start 12/24/18 at 09:00 Rivaroxaban (Xarelto) 20 mg WITH DINNER PO ; Start 12/24/18 at 17:35 Vancomycin HCl (Vanco Iv Per Pharmacy) VANCOMYCIN PER PHARMACY PER PROTOCOL XX ; Start 12/24/18 at 09:00 Diagnostic Test (Pha) (Accu-Chek) 1 ea 02 XX Last administered on 12/24/18at 02:00; Admin Dose 1 EA; Start 12/24/18 at 02:00 Insulin Aspart (Novolog Insulin Pen) NOVOLOG *MODERATE* ALGORITHM WITH MEALS BEDTIME SC Last administered on 12/25/18at 12:57; Admin Dose 12 UNIT; Start 12/24/18 at 07:35 Vancomycin/Sodium Chloride 250 ml @ 83.333 mls/ hr Q12H IVPB Last administered on 12/25/18at 04:18; Admin Dose 83.333 MLS/HR; Start 12/24/18 at 16:00 Cefepime HCl 50 ml @ 100 mls/hr Q12 IVPB Last administered on 12/25/18at 08:34; Admin Dose 100 MLS/HR; Start 12/24/18 at 03:00 Miscellaneous Information 1 ea NOTE XX ; Start 12/24/18 at 03:30 Glucose (Glutose) 15 gm Q15M PRN PO DECREASED GLUCOSE; Start 12/24/18 at 03:30 Glucose (Glutose) 22.5 gm Q15M PRN PO DECREASED GLUCOSE; Start 12/24/18 at 03:30 Dextrose (D50w Syringe) 25 ml Q15M PRN IV DECREASED GLUCOSE; Start 12/24/18 at 03:30 Dextrose (D50w Syringe) 50 ml Q15M PRN IV DECREASED GLUCOSE; Start 12/24/18 at 03:30 Glucagon (Glucagen) 1 mg Q15M PRN IM DECREASED GLUCOSE; Start 12/24/18 at 03:30 Glucose (Glutose) 15 gm Q15M PRN BUCCAL DECREASED GLUCOSE; Start 12/24/18 at 03:30 [facility]isc[facility] This patient chambers... PRN PRN XX WOUND CARE; Start 12/24/18 at 05:30 Povidone Iodine (Povidone-Iodine) 1 applic BID TOP ; Start 12/24/18 at 11:00 Zolpidem Tartrate (Ambien) 10 mg HS PRN PO INSOMNIA Last administered on 12/25/18 at 00:18; Admin Dose 10 MG; Start 12/24/18 at 09:30 Empaglifozin (Jardiance) 25 mg DAILY@08 PO Last administered on 12/25/18at 08:33; Admin Dose 25 MG; Start 12/25/18 at 08:00 Insulin Glargine (Lantus) 30 units HS SC Last administered on 12/24/18at 23:25; Admin Dose 30 UNITS; Start 12/24/18 at 23:30 Lorazepam (Ativan) 1 mg HS PRN PO ANXIETY Last administered on 12/25/18at 00:42; Admin Dose 1 MG; Start 12/25/18 at 00:30 Metformin HCl (Glucophage) 1,000 mg BID WITH MEALS PO ; Start 12/25/18 at 17:35 Insulin Aspart (Novolog Insulin Pen) 20 unit WITH MEALS SC Last administered on 12/25/18at 12:58; Admin Dose 20 UNIT; Start 12/25/18 at 13:00 ANTON AGUILAR NP Dec 25, 2018 15:03
--- NOTE | 2018-12-25 15:24 | PN ---
Date/Time of Note Date/Time of Note DATE: 12/25/18 TIME: 15:22 Objective Vitals Vital Signs Date Temp Pulse Resp B/P (MAP) Pulse Ox O2 O2 Flow FiO2 Time Delivery Rate 12/25/18 98.1 98 24 89/57 (68) 93 08:00 12/24/18 Room Air 21:53 12/24/18 8.0 21:21 Intake and Output 12/24/18 12/24/18 12/25/18 1515:00 23:00 07:00 IntakeIntake Total 610 ml 843 ml 1650 ml OutputOutput Total 1150 ml 450 ml 2450 ml BalanceBalance -540 ml 393 ml -800 ml Results Result Diagram: 12/25/1844012/25/18440 Medications Medications Current Medications IV Flush (NS 3 ml) 3 ml PER PROTOCOL IV ; Start 12/24/18 at 02:00 Ondansetron HCl (Zofran Inj) 4 mg Q6H PRN IV NAUSEA/VOMITING; Start 12/24/18 at 02:00 Acetaminophen (Tylenol Tab) 650 mg Q6H PRN PO .PAIN 1-3 OR TEMP; Start 12/24/18 at 02:00 Acetaminophen/ Hydrocodone Bitart ([place] (5/325)) 1 tab Q6H PRN PO .MOD PAIN 4- 6 Last administered on 12/24/18at 07:29; Admin Dose 1 TAB; Start 12/24/18 at 02:00 Acetaminophen/ Hydrocodone Bitart ([place] (5/325)) 2 tab Q6H PRN PO .SEVERE PAIN 7-10 Last administered on 12/24/18at 01:51; Admin Dose 2 TAB; Start 12/24/18 at 02:00 Albuterol/ Ipratropium (Duoneb) 3 ml Q2H RESP THERAPY PRN HHN SHORTNESS OF BREATH; Start 12/24/18 at 02:00 Duloxetine HCl (Cymbalta) 60 mg DAILY PO Last administered on 12/25/18at 08:29; Admin Dose 60 MG; Start 12/24/18 at 09:00 Levothyroxine Sodium (Synthroid) 50 mcg QAM PO Last administered on 12/25/18at 08:29; Admin Dose 50 MCG; Start 12/24/18 at 09:00 Rivaroxaban (Xarelto) 20 mg WITH DINNER PO ; Start 12/24/18 at 17:35 Vancomycin HCl (Vanco Iv Per Pharmacy) VANCOMYCIN PER PHARMACY PER PROTOCOL XX ; Start 12/24/18 at 09:00 Diagnostic Test (Pha) (Accu-Chek) 1 ea 02 XX Last administered on 12/24/18at 02:00; Admin Dose 1 EA; Start 12/24/18 at 02:00 Insulin Aspart (Novolog Insulin Pen) NOVOLOG *MODERATE* ALGORITHM WITH MEALS BEDTIME SC Last administered on 12/25/18at 12:57; Admin Dose 12 UNIT; Start 12/24/18 at 07:35 Vancomycin/Sodium Chloride 250 ml @ 83.333 mls/ hr Q12H IVPB Last administered on 12/25/18at 04:18; Admin Dose 83.333 MLS/HR; Start 12/24/18 at 16:00 Miscellaneous Information 1 ea NOTE XX ; Start 12/24/18 at 03:30 Glucose (Glutose) 15 gm Q15M PRN PO DECREASED GLUCOSE; Start 12/24/18 at 03:30 Glucose (Glutose) 22.5 gm Q15M PRN PO DECREASED GLUCOSE; Start 12/24/18 at 03:30 Dextrose (D50w Syringe) 25 ml Q15M PRN IV DECREASED GLUCOSE; Start 12/24/18 at 03:30 Dextrose (D50w Syringe) 50 ml Q15M PRN IV DECREASED GLUCOSE; Start 12/24/18 at 03:30 Glucagon (Glucagen) 1 mg Q15M PRN IM DECREASED GLUCOSE; Start 12/24/18 at 03:30 Glucose (Glutose) 15 gm Q15M PRN BUCCAL DECREASED GLUCOSE; Start 12/24/18 at 03:30 Miscellaneous Information (Pending [facility] Order For Wound Care) This patient chambers... PRN PRN XX WOUND CARE; Start 12/24/18 at 05:30 Povidone Iodine (Povidone-Iodine) 1 applic BID TOP ; Start 12/24/18 at 11:00 Zolpidem Tartrate (Ambien) 10 mg HS PRN PO INSOMNIA Last administered on 12/25/18at 00:18; Admin Dose 10 MG; Start 12/24/18 at 09:30 Empaglifozin (Jardiance) 25 mg DAILY@08 PO Last administered on 12/25/18at 08:33; Admin Dose 25 MG; Start 12/25/18 at 08:00 Insulin Glargine (Lantus) 30 units HS SC Last administered on 12/24/18at 23:25; Admin Dose 30 UNITS; Start 12/24/18 at 23:30 Lorazepam (Ativan) 1 mg HS PRN PO ANXIETY Last administered on 12/25/18at 00:42; Admin Dose 1 MG; Start 12/25/18 at 00:30 Metformin HCl (Glucophage) 1,000 mg BID WITH MEALS PO ; Start 12/25/18 at 17:35 Insulin Aspart (Novolog Insulin Pen) 20 unit WITH MEALS SC Last administered on 12/25/18at 12:58; Admin Dose 20 UNIT; Start 12/25/18 at 13:00 Ceftriaxone Sodium 50 ml @ 100 mls/hr Q24H IVPB ; Start 12/25/18 at 15:30 VTE Prophylaxis Risk score (from [facility])>0 risk: 6 SCD applied (from [facility]): No SCD contraindication: other Lines/Catheters IV Catheter Type: Simms in Place: No Assessment/Plan Hospital Course Subjective No acute complaints except for foot pain, patient doing well Objective Physical exam General: Patient is laying in bed and answers questions appropriately Mentation: Patient is alert and oriented 4, Head: Normocephalic atraumatic Eyes: EOMI, pupils reactive to light Neck: Supple, nontender, midline Respiratory: Clear to auscultation bilaterally Cardiovascular: regular rate, no obvious murmurs Gastrointestinal: non-tender to palpation, bowel sounds heard. Neurological: Moves all extremities spontaneously Skin: Right foot ulcer, bandaged, Assessment and plan Acute on chronic right diabetic foot ulcer -Status post debridement and skin flap, done December 24, 2018 -IV antibiotic, cultures pending -Infectious disease consulted -Podiatry consulted Sepsis -IV antibiotic -Cultures pending -Infectious disease recommendations appreciated Hypertension -Continue home meds Diabetes mellitus -Continue home meds, adjust insulin as needed Acute kidney injury -Resolved, patient resolved with IV fluid Hypothyroidism -Continue home medications History of depression -Continue Cymbalta Disposition -Pending cultures, patient will likely go home with IV antibiotic AVERY HUSSEIN Dec 25, 2018 15:24
[2018-12-25] MEDS: CEFTRIAXONE 1 GM/50 ML (PMX) 50 ML IVPB SCH (16:08)
[2018-12-25] MEDS: metFORMIN 500 MG TAB PO SCH (17:22)
[2018-12-25] MEDS: RIVAROXABAN 20 MG TABLET PO SCH (17:22)
--- NOTE | 2018-12-25 18:07 | CONS ---
Assessment/Plan Assessment/Plan Assessment/Plan (Daily) Right foot abscess. Right foot diabetic foot ulceration. Diabetes type 2, peripheral neuropathy. History of osteomyelitis fifth metatarsal. Charcot foot. Varus deformity, right foot. History of fifth metatarsal head resection. Thrombocytopenia. Plan Patient tolerated debridement and wound flap closure. Previous wound cultures showing staph and strep. Antibiotics per ID recommendations. Intra-op cultures pending. Patient will need dressings and posterior splint prior to discharge. Non weight bearing to right lower extremity. Consultation Date/Type/Reason Admit Date/Time Dec 23, 2018 at 19:59 Initial Consult Date Date/Time of Note DATE: 12/25/18 TIME: 18:05 24 HR Interval Summary Free Text/Dictation No acute events overnight. Exam/Review of Systems Exam Vitals Vital Signs Date Temp Pulse Resp B/P (MAP) Pulse Ox O2 O2 Flow FiO2 Time Delivery Rate 12/25/18 98.1 98 24 89/57 (68) 93 08:00 12/24/18 Room Air 21:53 12/24/18 8.0 21:21 Intake and Output 12/24/18 12/24/18 12/25/18 1515:00 23:00 07:00 IntakeIntake Total 610 ml 843 ml 1650 ml OutputOutput Total 1150 ml 450 ml 2450 ml BalanceBalance -540 ml 393 ml -800 ml Exam Dressings clean dry and intact and without strikethrough drainage No proximal streaking Wound VAC output minimal serosanguinous drainage Low continuous therapy 125mmHg Results Result Diagram: 12/25/18 0441 12/25/18 0441 Results 24hrs Laboratory Tests Test 12/24/18 18:27 12/24/18 21:21 12/24/18 22:34 12/25/18 04:41 Bedside Glucose 154 200 243 H White Blood Count 8.6 Red Blood Count 5.03 Hemoglobin 12.0 L Hematocrit 40.5 L Mean Corpuscular 80.5 L Volume Mean Corpuscular 23.9 L Hemoglobin Mean Corpuscular 29.6 L Hemoglobin Concen t Red Cell 15.9 H Distribution Width Platelet Count 47 L Mean Platelet Volume Immature 0.700 H Granulocytes % Neutrophils % 93.8 H Lymphocytes % 4.1 L Monocytes % 1.2 Eosinophils % 0.0 Basophils % 0.2 Nucleated Red 0.0 Blood Cells % Immature 0.060 H Granulocytes # Neutrophils # 8.1 H Lymphocytes # 0.4 L Monocytes # 0.1 L Eosinophils # 0.0 Basophils # 0.0 Nucleated Red 0.0 Blood Cells # Sodium Level 138 Potassium Level 5.1 Chloride Level 102 Carbon Dioxide 16 L Level Anion Gap 20 #H Blood Urea 25 H Nitrogen Creatinine 1.33 H Est Glomerular 58 L Filtrat Rate mL/min Glucose Level 385 H Calcium Level 9.0 Phosphorus Level 5.2 H Magnesium Level 2.0 Test 12/25/18 06:17 12/25/18 08:20 12/25/18 12:33 12/25/18 15:12 Lab Scanned BLOOD TRANSFUSION Report Bedside Glucose 405 *H 369 H Vancomycin Level 16.7 Trough Test 12/25/18 17:01 Bedside Glucose 219 Medications Medication Current Medications IV Flush (NS 3 ml) 3 ml PER PROTOCOL IV ; Start 12/24/18 at 02:00 Ondansetron HCl (Zofran Inj) 4 mg Q6H PRN IV NAUSEA/VOMITING; Start 12/24/18 at 02:00 Acetaminophen (Tylenol Tab) 650 mg Q6H PRN PO .PAIN 1-3 OR TEMP; Start 12/24/18 at 02:00 Acetaminophen/ Hydrocodone Bitart (Post (5/325)) 1 tab Q6H PRN PO .MOD PAIN 4- 6 Last administered on 12/24/18at 07:29; Admin Dose 1 TAB; Start 12/24/18 at 02:00 Albuterol/ Ipratropium (Duoneb) 3 ml Q2H RESP THERAPY PRN HHN SHORTNESS OF BREATH; Start 12/24/18 at 02:00 Duloxetine HCl (Cymbalta) 60 mg DAILY PO Last administered on 12/25/18at 08:29; Admin Dose 60 MG; Start 12/24/18 at 09:00 Levothyroxine Sodium (Synthroid) 50 mcg QAM PO Last administered on 12/25/18at 08:29; Admin Dose 50 MCG; Start 12/24/18 at 09:00 Rivaroxaban (Xarelto) 20 mg WITH DINNER PO Last administered on 12/25/18at 17:22; Admin Dose 20 MG; Start 12/24/18 at 17:35 Vancomycin HCl (Vanco Iv Per Pharmacy) VANCOMYCIN PER PHARMACY PER PROTOCOL XX ; Start 12/24/18 at 09:00 Diagnostic Test (Pha) (Accu-Chek) 1 ea 02 XX Last administered on 12/24/18at 02:00; Admin Dose 1 EA; Start 12/24/18 at 02:00 Insulin Aspart (Novolog Insulin Pen) NOVOLOG *MODERATE* ALGORITHM WITH MEALS BEDTIME SC Last administered on 12/25/18at 17:25; Admin Dose 4 UNIT; Start 11/26 06/14 at 07:35 Vancomycin/Sodium Chloride 250 ml @ 83.333 mls/ hr Q12H IVPB Last administered on 12/25/18at 17:27; Admin Dose 83.333 MLS/HR; Start 12/24/18 at 16:00 Miscellaneous Information 1 ea NOTE XX ; Start 12/24/18 at 03:30 Glucose (Glutose) 15 gm Q15M PRN PO DECREASED GLUCOSE; Start 12/24/18 at 03:30 Glucose (Glutose) 22.5 gm Q15M PRN PO DECREASED GLUCOSE; Start 12/24/18 at 03:30 Dextrose (D50w Syringe) 25 ml Q15M PRN IV DECREASED GLUCOSE; Start 12/24/18 at 03:30 Dextrose (D50w Syringe) 50 ml Q15M PRN IV DECREASED GLUCOSE; Start 12/24/18 at 03:30 Glucagon (Glucagen) 1 mg Q15M PRN IM DECREASED GLUCOSE; Start 12/24/18 at 03:30 Glucose (Glutose) 15 gm Q15M PRN BUCCAL DECREASED GLUCOSE; Start 12/24/18 at 03:30 Miscellaneous Information (Pending [facility] Order For Wound Care) This patient chambers... PRN PRN XX WOUND CARE; Start 12/24/18 at 05:30 Povidone Iodine (Povidone-Iodine) 1 applic BID TOP ; Start 12/24/18 at 11:00 Zolpidem Tartrate (Ambien) 10 mg HS PRN PO INSOMNIA Last administered on 12/25/18at 00:18; Admin Dose 10 MG; Start 12/24/18 at 09:30 Empaglifozin (Jardiance) 25 mg DAILY@08 PO Last administered on 12/25/18at 08:33; Admin Dose 25 MG; Start 12/25/18 at 08:00 Lorazepam (Ativan) 1 mg HS PRN PO ANXIETY Last administered on 12/25/18at 00:42; Admin Dose 1 MG; Start 12/25/18 at 00:30 Metformin HCl (Glucophage) 1,000 mg BID WITH MEALS PO Last administered on 12/25/18at 17:22; Admin Dose 1,000 MG; Start 12/25/18 at 17:35 Insulin Aspart (Novolog Insulin Pen) 20 unit WITH MEALS SC Last administered on 12/25/18at 17:25; Admin Dose 20 UNIT; Start 12/25/18 at 13:00 Ceftriaxone Sodium 50 ml @ 100 mls/hr Q24H IVPB Last administered on 12/25/18at 16:08; Admin Dose 100 MLS/HR; Start 12/25/18 at 15:30 Insulin Glargine (Lantus) 40 units HS SC ; Start 12/25/18 at 21:00 MARIANGEL RODRIGUEZ DPM Dec 25, 2018 18:07
--- NOTE | 2018-12-25 18:32 | CONS ---
Assessment/Plan Assessment/Plan Problems: (1) Type 2 diabetes mellitus with hyperglycemia Status: Chronic Comment: Agree w/ increasing insulin regimen as primary team has been doing. Novolog increased from 10 to 20 units qac. Will increase lantus from 30 to 40 units tonight. Restart metformin 1,000 mg bid. Restarted this am on jardiance 25 mg daily. Cont. GLP-1 agonist therapy w/ ozempic which is due tomorrow at dose of 0.5 mg. Pt. can take home supply. Will cont. all adjunctive therapies and titrate insulin to goal glucose levels 90-180 mg/dL. Qualifiers: Qualified Codes: E11.65 - Type 2 diabetes mellitus with hyperglycemia; Z79.4 - longterm (current) use of insulin Consultation Date/Type/Reason Admit Date/Time Dec 23, 2018 at 19:59 Date of Consultation: Dec 25, 2018 Type of Consult Endocrinology Reason for Consultation T2DM management Requesting Provider: AVERY HUSSEIN Date/Time of Note DATE: 12/25/18 TIME: 18:22 Hx of Present Illness 43 y/o C M w/ h/o T2DM, HTN, hypothyroidism, hypogonadism, morbid obesity, s/p OM R 5th metatarsal was experiencing wound closure until 2 weeks ago when wound started to look a little worse. Earlier this week foot became more swollen and liquid was expressed from plantar surface. 2 days ago pt. developed myalgias and decided to come to ER. Concern for deep tissue abscess. Started IV abx and taken for I&D last night. Found to have coiled up dog hair wrapped around his bone. Glucose has been OOC since admit despite continuing most of home regimen. Endo consulted. Constitutional: no complaints, improved Eyes: no complaints ENT: no complaints Respiratory: no complaints Cardiovascular: no complaints Gastrointestinal: no complaints Genitourinary: no complaints Musculoskeletal: bone/joint pain (R foot), swelling (R foot) Neurologic: no complaints Past Medical History Medical History: diabetes, hypertension, hypothyroid, other (osteomyelitis, anxiety, hypogonadism) Home Meds Reported Medications Lisinopril* (Lisinopril*) 20 Mg Tablet, 20 MG PO DAILY, #30 TAB 09/04/18 Lorazepam* (Lorazepam*) 1 Mg Tablet, 1 MG PO QHS TAKE 1 TABLET BY MOUTH AT BEDTIME 09/04/18 Levothyroxine Sodium* (Levothyroxine Sodium*) 50 Mcg Tablet, 50 MCG PO QAM for 90 Days, #90 TAKE 1 TABLET BY MOUTH EVERY DAY 09/04/18 Rivaroxaban* (Xarelto*) 20 Mg Tablet, 20 MG PO DAILY for 30 Days, #30 09/04/18 Insulin Glargine,Hum.rec.anlog (Basaglar Kwikpen U-100) 100 Unit/1 Ml Insuln.pen, 30 UNIT SC QHS, EA 09/04/18 Insulin Aspart* (Novolog Insulin Pen*) 100 Unit/Ml Soln, 20 UNIT SC WITH MEALS, EA 09/04/18 Duloxetine Hcl* (Cymbalta*) 60 Mg Capsule.dr, 60 MG PO DAILY, CAP 09/04/18 Metformin* (Glucophage*) 1,000 Mg Tablet, 1000 MG PO BID WITH MEALS 11/18/12 Zolpidem Tartrate* (Zolpidem Tartrate*) 10 Mg Tablet, 10 MG PO HS 11/18/12 Discontinued Reported Medications Sitagliptin* (Januvia*) 100 Mg Tablet, 100 MG PO DAILY for 30 Days, #30 TAKE 1 TABLET BY MOUTH EVERY DAY 09/04/18 Discontinued Scripts Vancomycin HCl (Vancomycin HCl) 1 Gm Vial, 1 GM IV .PHARMACY for 28 Days, VIAL Prov:ANDREW ISABEL NP 09/07/18 Medications Current Medications IV Flush (NS 3 ml) 3 ml PER PROTOCOL IV ; Start 12/24/18 at 02:00 Ondansetron HCl (Zofran Inj) 4 mg Q6H PRN IV NAUSEA/VOMITING; Start 12/24/18 at 02:00 Acetaminophen (Tylenol Tab) 650 mg Q6H PRN PO .PAIN 1-3 OR TEMP; Start 12/24/18 at 02:00 Acetaminophen/ Hydrocodone Bitart (Roach (5/325)) 1 tab Q6H PRN PO .MOD PAIN 4- 6 Last administered on 12/24/18at 07:29; Admin Dose 1 TAB; Start 12/24/18 at 02:00 Albuterol/ Ipratropium (Duoneb) 3 ml Q2H RESP THERAPY PRN HHN SHORTNESS OF BREATH; Start 12/24/18 at 02:00 Duloxetine HCl (Cymbalta) 60 mg DAILY PO Last administered on 12/25/18 08:29; Admin Dose 60 MG; Start 12/24/18 at 09:00 Levothyroxine Sodium (Synthroid) 50 mcg QAM PO Last administered on 12/25/18at 08:29; Admin Dose 50 MCG; Start 12/24/18 at 09:00 Rivaroxaban (Xarelto) 20 mg WITH DINNER PO Last administered on 12/25/18at 17:22; Admin Dose 20 MG; Start 12/24/18 at 17:35 Vancomycin HCl (Vanco Iv Per Pharmacy) VANCOMYCIN PER PHARMACY PER PROTOCOL XX ; Start 12/24/18 at 09:00 Diagnostic Test (Pha) (Accu-Chek) 1 ea 02 XX Last administered on 12/24/18at 02:00; Admin Dose 1 EA; Start 12/24/18 at 02:00 Insulin Aspart (Novolog Insulin Pen) NOVOLOG *MODERATE* ALGORITHM WITH MEALS BEDTIME SC Last administered on 12/25/18at 17:25; Admin Dose 4 UNIT; Start 12/24/18 at 07:35 Vancomycin/Sodium Chloride 250 ml @ 83.333 mls/ hr Q12H IVPB Last administered on 12/25/18 17:27; Admin Dose 83.333 MLS/HR; Start 12/24/18 at 16:00 Miscellaneous Information 1 ea NOTE XX ; Start 12/24/18 at 03:30 Glucose (Glutose) 15 gm Q15M PRN PO DECREASED GLUCOSE; Start 12/24/18 at 03:30 Glucose (Glutose) 22.5 gm Q15M PRN PO DECREASED GLUCOSE; Start 12/24/18 at 03:30 Dextrose (D50w Syringe) 25 ml Q15M PRN IV DECREASED GLUCOSE; Start 12/24/18 at 03:30 Dextrose (D50w Syringe) 50 ml Q15M PRN IV DECREASED GLUCOSE; Start 12/24/18 at 03:30 Glucagon (Glucagen) 1 mg Q15M PRN IM DECREASED GLUCOSE; Start 12/24/18 at 03:30 Glucose (Glutose) 15 gm Q15M PRN BUCCAL DECREASED GLUCOSE; Start 12/24/18 at 03:30 Miscellaneous Information [facility] This patient chambers... PRN PRN XX WOUND CARE; Start 12/24/18 at 05:30 Povidone Iodine (Povidone-Iodine) 1 applic BID TOP ; Start 12/24/18 at 11:00 Zolpidem Tartrate (Ambien) 10 mg HS PRN PO INSOMNIA Last administered on 12/25/18at 00:18; Admin Dose 10 MG; Start 12/24/18 at 09:30 Empaglifozin (Jardiance) 25 mg DAILY@08 PO Last administered on 12/25/18at 08:33; Admin Dose 25 MG; Start 12/25/18 at 08:00 Lorazepam (Ativan) 1 mg HS PRN PO ANXIETY Last administered on 12/25/18at 00:42; Admin Dose 1 MG; Start 12/25/18 at 00:30 Metformin HCl (Glucophage) 1,000 mg BID WITH MEALS PO Last administered on 12/25/18at 17:22; Admin Dose 1,000 MG; Start 12/25/18 at 17:35 Insulin Aspart (Novolog Insulin Pen) 20 unit WITH MEALS SC Last administered on 12/25/18at 17:25; Admin Dose 20 UNIT; Start 12/25/18 at 13:00 Ceftriaxone Sodium 50 ml @ 100 mls/hr Q24H IVPB Last administered on 12/25/18at 16:08; Admin Dose 100 MLS/HR; Start 12/25/18 at 15:30 Insulin Glargine (Lantus) 40 units HS SC ; Start 12/25/18 at 21:00 Allergies: Coded Allergies: gabapentin (Verified Allergy, Severe, SUICIDAL THOUGHS, 12/23/18) morphine (Verified Allergy, Intermediate, 12/23/18) pregabalin (Verified Allergy, Mild, SUICIDAL, 12/23/18) Uncoded Allergies: LYRICA (Allergy, Intermediate, WEIGHT GAIN, 01/01/13) TEGAMYCEIN (Allergy, Mild, 11/18/12) TEGAMYCIN (Allergy, Unknown, 09/04/18) Past Surgical History Past Surgical Hx: other (gastrectomy, R wrist repositioning, retinal laser surgery, R foot arthrodesis, B foot ulcer debridments) Family History Significant Family History: diabetes, hypertension, renal disease, vascular disease, other (skin cancer, DVT, pancreatitis, biliary disease, ) Social History b. 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 ago) Drug Use: marijuana (h/o use in past but quit > 10 y. ago) Exam/Review of Systems Exam Vitals VS - Last 72 Hours, by Label Date Temp Pulse Resp B/P (MAP) Pulse Ox O2 O2 Flow FiO2 Time Delivery Rate 12/25/18 98.1 98 24 89/57 (68) 93 08:00 12/25/18 98.6 110 17 119/61 97 02:30 (80) 12/24/18 98.2 98 18 96/54 (68) 95 22:15 12/24/18 94 12 99/52 (68) 95 Room Air 21:53 12/24/18 98 17 98/57 (71) 96 Room Air 21:48 12/24/18 100 17 102/67 96 Room Air 21:43 (79) 12/24/18 98 16 102/51 94 Room Air 21:38 (68) 12/24/18 100 14 106/55 96 Room Air 21:30 (72) 12/24/18 100 13 133/67 95 Room Air 21:28 (89) 12/24/18 96 15 157/79 95 Room Air 21:26 (105) Mask 12/24/18 98.1 21:25 12/24/18 98.1 101 15 141/70 100 Mask 8.0 21:21 (93) 12/24/18 98.7 98 18 111/72 97 14:18 (85) 12/24/18 99.8 110 20 110/72 95 07:30 (85) 12/24/18 98.9 100 18 103/65 94 02:25 (78) 12/24/18 98.8 102 16 100/61 100 Room Air 02:09 (74) 12/23/18 99.2 103 17 113/69 100 Room Air 22:50 (84) 12/23/18 104 18 128/87 99 Room Air 20:09 (101) 12/23/18 100 15 107/76 99 Room Air 19:30 (86) 12/23/18 113 21 102/69 99 Room Air 18:45 (80) 12/23/18 98.8 120 18 134/78 96 15:28 (96) Vital Signs Date Temp Pulse Resp B/P (MAP) Pulse Ox O2 O2 Flow FiO2 Time Delivery Rate 12/25/18 98.1 98 24 89/57 (25) 93 08:00 12/24/18 Room Air 21:53 12/24/18 8.0 21:21 Intake and Output 12/24/18 12/24/18 12/25/18 1515:00 23:00 07:00 IntakeIntake Total 610 ml 843 ml 1650 ml OutputOutput Total 1150 ml 450 ml 2450 ml BalanceBalance -540 ml 393 ml -800 ml Constitutional: alert, oriented, obese Psych: no complaints, nl mood/affect Eyes: nl conjunctiva, EOMI, nl lids, nl sclera, PERRL ENMT: nl external ears & nose, mucosa pink and moist Neck: supple, non-tender; No bruits, No masses, No thyromegaly Respiratory: clear to auscultation, normal air movement Cardiovascular: regular rate and rhythm; No edema, No murmurs/extra sounds, No rub Gastrointestinal: soft, nl liver, spleen, non-tender, bowel sounds; No mass, No rebound or guarding Musculoskeletal: No nl extremities to inspection (R foot wrapped) Extremities: No cyanosis, No clubbing, No edema Neurological: [employer] II-XII intact, nl mental status, nl speech, nl strength Additional Comments Bedside Glucose - 72 Hours Test 12/24/18 01:03 12/24/18 02:58 12/24/18 08:26 12/24/18 12:34 Bedside 225 258 212 242 Glucose mg/dL (70-220) mg/dL (70-220) mg/dL (70-220) mg/dL (70-220) H H H Test 12/24/18 18:27 12/24/18 21:21 12/24/18 22:34 12/25/18 08:20 Bedside 154 200 243 405 Glucose mg/dL (70-220) mg/dL (70-220) mg/dL (70-220) mg/dL (70-220) H *H Test 12/25/18 12:33 12/25/18 17:01 Bedside 369 219 Glucose mg/dL (70-220) mg/dL (70-220) H Results Result Diagram: 12/25/18 0441 12/25/18 0441 Results 24hrs Laboratory Tests Test 12/24/18 18:27 12/24/18 21:21 12/24/18 22:34 12/25/18 04:41 Bedside Glucose 154 200 243 H White Blood Count 8.6 Red Blood Count 5.03 Hemoglobin 12.0 L Hematocrit 40.5 L Mean Corpuscular 80.5 L Volume Mean Corpuscular 23.9 L Hemoglobin Mean Corpuscular 29.6 L Hemoglobin Concen t Red Cell 15.9 H Distribution Width Platelet Count 47 L Mean Platelet Volume Immature 0.700 H Granulocytes % Neutrophils % 93.8 H Lymphocytes % 4.1 L Monocytes % 1.2 Eosinophils % 0.0 Basophils % 0.2 Nucleated Red 0.0 Blood Cells % Immature 0.060 H Granulocytes # Neutrophils # 8.1 H Lymphocytes # 0.4 L Monocytes # 0.1 L Eosinophils # 0.0 Basophils # 0.0 Nucleated Red 0.0 Blood Cells # Sodium Level 138 Potassium Level 5.1 Chloride Level 102 Carbon Dioxide 16 L Level Anion Gap 20 #H Blood Urea 25 H Nitrogen Creatinine 1.33 H Est Glomerular 58 L Filtrat Rate mL/min Glucose Level 385 H Calcium Level 9.0 Phosphorus Level 5.2 H Magnesium Level 2.0 Test 12/25/18 06:17 12/25/18 08:20 12/25/18 12:33 12/25/18 15:12 Lab Scanned BLOOD TRANSFUSION Report Bedside Glucose 405 *H 369 H Vancomycin Level 16.7 Trough Test 12/25/18 17:01 Bedside Glucose 219 Medications Medication Current Medications IV Flush (NS 3 ml) 3 ml PER PROTOCOL IV ; Start 12/24/18 at 02:00 Ondansetron HCl (Zofran Inj) 4 mg Q6H PRN IV NAUSEA/VOMITING; Start 12/24/18 at 02:00 Acetaminophen (Tylenol Tab) 650 mg Q6H PRN PO .PAIN 1-3 OR TEMP; Start 12/24/18 at 02:00 Acetaminophen/ Hydrocodone Bitart (Roach (5/325)) 1 tab Q6H PRN PO .MOD PAIN 4- 6 Last administered on 12/24/18at 07:29; Admin Dose 1 TAB; Start 12/24/18 at 02 :00 Albuterol/ Ipratropium (Duoneb) 3 ml Q2H RESP THERAPY PRN HHN SHORTNESS OF BREATH; Start 12/24/18 at 02:00 Duloxetine HCl (Cymbalta) 60 mg DAILY PO Last administered on 12/25/18at 08:29; Admin Dose 60 MG; Start 12/24/18 at 09:00 Levothyroxine Sodium (Synthroid) 50 mcg QAM PO Last administered on 12/25/18at 08:29; Admin Dose 50 MCG; Start 12/24/18 at 09:00 Rivaroxaban (Xarelto) 20 mg WITH DINNER PO Last administered on 12/25/18at 17:22; Admin Dose 20 MG; Start 12/24/18 at 17:35 Vancomycin HCl (Vanco Iv Per Pharmacy) VANCOMYCIN PER PHARMACY PER PROTOCOL XX ; Start 12/24/18 at 09:00 Diagnostic Test (Pha) (Accu-Chek) 1 ea 02 XX Last administered on 12/24/18at 02:00; Admin Dose 1 EA; Start 12/24/18 at 02:00 Insulin Aspart (Novolog Insulin Pen) NOVOLOG *MODERATE* ALGORITHM WITH MEALS BEDTIME SC Last administered on 12/25/18at 17:25; Admin Dose 4 UNIT; Start 12/24/18 at 07:35 Vancomycin/Sodium Chloride 250 ml @ 83.333 mls/ hr Q12H IVPB Last administered on 12/25/18at 17:27; Admin Dose 83.333 MLS/HR; Start 12/24/18 at 16:00 Miscellaneous Information 1 ea NOTE XX ; Start 12/24/18 at 03:30 Glucose (Glutose) 15 gm Q15M PRN PO DECREASED GLUCOSE; Start 12/24/18 at 03:30 Glucose (Glutose) 22.5 gm Q15M PRN PO DECREASED GLUCOSE; Start 12/24/18 at 03:30 Dextrose (D50w Syringe) 25 ml Q15M PRN IV DECREASED GLUCOSE; Start 12/24/18 at 03:30 Dextrose (D50w Syringe) 50 ml Q15M PRN IV DECREASED GLUCOSE; Start 12/24/18 at 03:30 Glucagon (Glucagen) 1 mg Q15M PRN IM DECREASED GLUCOSE; Start 12/24/18 at 03:30 Glucose (Glutose) 15 gm Q15M PRN BUCCAL DECREASED GLUCOSE; Start 12/24/18 at 03:30 Miscellaneous Information (Pending [facility] Order For Wound Care) This patient chambers... PRN PRN XX WOUND CARE; Start 12/24/18 at 05:30 Povidone Iodine (Povidone-Iodine) 1 applic BID TOP ; Start 12/24/18 at 11:00 Zolpidem Tartrate (Ambien) 10 mg HS PRN PO INSOMNIA Last administered on 12/25/18at 00:18; Admin Dose 10 MG; Start 12/24/18 at 09:30 Empaglifozin (Jardiance) 25 mg DAILY@08 PO Last administered on 12/25/18at 08:33; Admin Dose 25 MG; Start 12/25/18 at 08:00 Lorazepam (Ativan) 1 mg HS PRN PO ANXIETY Last administered on 12/25/18at 00:42; Admin Dose 1 MG; Start 12/25/18 at 00:30 Metformin HCl (Glucophage) 1,000 mg BID WITH MEALS PO Last administered on 12/25/18at 17:22; Admin Dose 1,000 MG; Start 12/25/18 at 17:35 Insulin Aspart (Novolog Insulin Pen) 20 unit WITH MEALS SC Last administered on 12/25/18at 17:25; Admin Dose 20 UNIT; Start 12/25/18 at 13:00 Ceftriaxone Sodium 50 ml @ 100 mls/hr Q24H IVPB Last administered on 12/25/18at 16:08; Admin Dose 100 MLS/HR; Start 12/25/18 at 15:30 Insulin Glargine (Lantus) 40 units HS SC ; Start 12/25/18 at 21:00 MICHAEL MIXON MD Dec 25, 2018 18:32
[2018-12-25 20:00] VITALS: BP 129/70; PULSE 87; RESP 18
[2018-12-25] MEDS ORDERED: INSULIN GLARGINE [LANTus] (100 UNITS/ML) SYG SC SCH (21:00)
[2018-12-26] MEDS: LORAZEPAM 1 MG TAB PO PRN (00:31)
[2018-12-26] MEDS: ZOLPIDEM 5 MG TAB PO PRN (00:31)
[2018-12-26 01:50] VITALS: BP 97/59; PULSE 74; RESP 18
[2018-12-26] MEDS: ACCU-CHEK XX SCH (01:52)
[2018-12-26] MEDS: VANCOMYCIN 1.5 GM/NS 250 ML 250 ML IVPB SCH ×2 (04:27→15:55)
[2018-12-26 08:04] VITALS: BP 97/56; PULSE 77; RESP 18
[2018-12-26] MEDS: EMPAGLIFLOZIN 10 MG TABLET PO SCH (08:10)
[2018-12-26] MEDS: metFORMIN 500 MG TAB PO SCH ×2 (08:11→17:09)
[2018-12-26] MEDS: DULOXETINE 30 MG CAP DR PO SCH (08:11)
[2018-12-26] MEDS: LEVOTHYROXINE 50 MCG TAB PO SCH (08:11)
[2018-12-26] MEDS: INSULIN ASPART [NOVOLOG] 3 ML PEN SC SCH ×8 (08:12→20:49)
[2018-12-26] MEDS: POVIDONE IODINE 10% 28.4 GM OINT TOP SCH ×2 (10:49→20:51)
[2018-12-26] MEDS ORDERED: DOCUSATE SODIUM 100 MG CAP PO ONE (13:22)
[2018-12-26] MEDS: DOCUSATE SODIUM 100 MG CAP PO SCH ×2 (13:24→20:47)
[2018-12-26 13:49] VITALS: BP 104/69; PULSE 102; RESP 18
[2018-12-26] MEDS: CEFTRIAXONE 1 GM/50 ML (PMX) 50 ML IVPB SCH (15:14)
--- NOTE | 2018-12-26 15:20 | CONS ---
Assessment/Plan Assessment/Plan Hospital Course (Demo Recall) Patient is alert feels good looks comfortable no fevers overnight. Microbiology: Blood culture on admission growing staph aureus, oxacillin sensitive. Wound culture growing oxacillin sensitive staph aureus, strep and coag negative staph species Antimicrobials: Patient is on IV vancomycin and Rocephin Microbiology: Wound cultures growing strep and staph species and staph aureus Physical examination: This is a morbidly obese well-developed middle-aged white man who is alert in no distress. Head atraumatic normocephalic neck is supple chest rise symmetrical breath sounds diminished bases heart: S1-S2 abdomen soft bowel sounds present. Extremities with right foot dressing intact, wound VAC present. Assessment: 1. Right foot cellulitis with abscess, status post I&D 2. Oxacillin sensitive staph aureus bacteremia secondary to above 2. Diabetes 3. Acute possibly on chronic kidney disease 4. Morbid obesity 5. Charcot foot Plan: Patient remains stable we will continue him on current antibiotics, repeat blood cultures and await for pathology report. Patient will require 2 weeks IV antibiotics to treat bacteremia if he does not have osteomyelitis otherwise he will require longer treatment Consultation Date/Type/Reason Admit Date/Time Dec 23, 2018 at 19:59 Initial Consult Date Type of Consult id Requesting Provider: AVERY HUSSEIN Date/Time of Note DATE: 12/26/18 TIME: 15:18 Exam/Review of Systems Exam Vitals Vital Signs Date Temp Pulse Resp B/P (MAP) Pulse Ox O2 O2 Flow FiO2 Time Delivery Rate 12/26/18 98.0 102 18 104/69 96 Room Air 13:49 (81) 12/24/18 8.0 21:21 Intake and Output 12/25/18 12/25/18 12/26/18 1515:00 23:00 07:00 IntakeIntake Total 960 ml 540 ml 950 ml OutputOutput Total 3500 ml 800 ml 1200 ml BalanceBalance -2540 ml -260 ml -250 ml Results Result Diagram: 12/26/18 0443 12/26/18 0443 Results 24hrs Laboratory Tests Test 12/25/18 17:01 12/25/18 20:28 12/26/18 01:33 12/26/18 04:43 Bedside Glucose 219 251 H 199 White Blood Count 13.9 #H Red Blood Count 4.78 Hemoglobin 11.5 L Hematocrit 37.5 L Mean Corpuscular Volume 78.5 L Mean Corpuscular 24.1 L Hemoglobin Mean Corpuscular 30.7 L Hemoglobin Concent Red Cell Distribution 15.6 H Width Platelet Count 85 #L Mean Platelet Volume Immature Granulocytes % 0.600 H Neutrophils % 83.2 H Lymphocytes % 9.8 L Monocytes % 6.1 Eosinophils % 0.1 Basophils % 0.2 Nucleated Red Blood 0.0 Cells % Immature Granulocytes # 0.080 H Neutrophils # 11.5 H Lymphocytes # 1.4 Monocytes # 0.9 Eosinophils # 0.0 Basophils # 0.0 Nucleated Red Blood 0.0 Cells # Sodium Level 140 Potassium Level 4.3 Chloride Level 104 Carbon Dioxide Level 23 Anion Gap 13 # Blood Urea Nitrogen 33 H Creatinine 1.24 Est Glomerular Filtrat > 60 Rate mL/min Glucose Level 223 #H Calcium Level 9.2 Phosphorus Level 5.0 H Magnesium Level 2.1 Test 12/26/18 08:09 12/26/18 12:32 Bedside Glucose 230 H 202 Medications Medication Current Medications IV Flush (NS 3 ml) 3 ml PER PROTOCOL IV ; Start 12/24/18 at 02:00 Ondansetron HCl (Zofran Inj) 4 mg Q6H PRN IV NAUSEA/VOMITING; Start 12/24/18 at 02:00 Acetaminophen (Tylenol Tab) 650 mg Q6H PRN PO .PAIN 1-3 OR TEMP; Start 12/24/18 at 02:00 Acetaminophen/ Hydrocodone Bitart ([place] (5/325)) 1 tab Q6H PRN PO .MOD PAIN 4- 6 Last administered on 12/24/18at 07:29; Admin Dose 1 TAB; Start 12/24/18 at 02:00 Albuterol/ Ipratropium (Duoneb) 3 ml Q2H RESP THERAPY PRN HHN SHORTNESS OF BREATH; Start 12/24/18 at 02:00 Duloxetine HCl (Cymbalta) 60 mg DAILY PO Last administered on 12/26/18at 08:11; Admin Dose 60 MG; Start 12/24/18 at 09:00 Levothyroxine Sodium (Synthroid) 50 mcg QAM PO Last administered on 12/26/18at 08:11; Admin Dose 50 MCG; Start 12/24/18 at 09:00 Rivaroxaban (Xarelto) 20 mg WITH DINNER PO Last administered on 12/25/18at 17:22; Admin Dose 20 MG; Start 12/24/18 at 17:35 Vancomycin HCl (Vanco Iv Per Pharmacy) VANCOMYCIN PER PHARMACY PER PROTOCOL XX ; Start 12/24/18 at 09:00 Diagnostic Test (Pha) (Accu-Chek) 1 ea 02 XX Last administered on 12/26/18at 01:52; Admin Dose 1 EA; Start 12/24/18 at 02:00 Insulin Aspart (Novolog Insulin Pen) NOVOLOG *MODERATE* ALGORITHM WITH MEALS BEDTIME SC Last administered on 12/26/18at 12:36; Admin Dose 4 UNIT; Start 12/24/18 at 07:35 Vancomycin/Sodium Chloride 250 ml @ 83.333 mls/ hr Q12H IVPB Last administered on 12/26/18at 04:27; Admin Dose 83.333 MLS/HR; Start 12/24/18 at 16:00 Miscellaneous Information 1 ea NOTE XX ; Start 12/24/18 at 03:30 Glucose (Glutose) 15 gm Q15M PRN PO DECREASED GLUCOSE; Start 12/24/18 at 03:30 Glucose (Glutose) 22.5 gm Q15M PRN PO DECREASED GLUCOSE; Start 12/24/18 at 03:30 Dextrose (D50w Syringe) 25 ml Q15M PRN IV DECREASED GLUCOSE; Start 12/24/18 at 03:30 Dextrose (D50w Syringe) 50 ml Q15M PRN IV DECREASED GLUCOSE; Start 12/24/18 at 03:30 Glucagon (Glucagen) 1 mg Q15M PRN IM DECREASED GLUCOSE; Start 12/24/18 at 03:30 Glucose (Glutose) 15 gm Q15M PRN BUCCAL DECREASED GLUCOSE; Start 12/24/18 at 03:30 Miscellaneous Information (Pending [facility] Order For Wound Care) This patient chambers... PRN PRN XX WOUND CARE; Start 12/24/18 at 05:30 Povidone Iodine (Povidone-Iodine) 1 applic BID TOP Last administered on 12/26at 10:49; Admin Dose 1 APPLIC; Start 12/24/18 at 11:00 Zolpidem Tartrate (Ambien) 10 mg HS PRN PO INSOMNIA Last administered on 12/26/18at 00:31; Admin Dose 10 MG; Start 12/24/18 at 09:30 Empaglifozin (Jardiance) 25 mg DAILY@08 PO Last administered on 12/26/18 08:10; Admin Dose 25 MG; Start 12/25/18 at 08:00 Lorazepam (Ativan) 1 mg HS PRN PO ANXIETY Last administered on 12/26/18 00:31; Admin Dose 1 MG; Start 12/25/18 at 00:30 Metformin HCl (Glucophage) 1,000 mg BID WITH MEALS PO Last administered on 12/26/18 08:11; Admin Dose 1,000 MG; Start 12/25/18 at 17:35 Insulin Aspart (Novolog Insulin Pen) 20 unit WITH MEALS SC Last administered on 12/26/18 12:37; Admin Dose 20 UNIT; Start 12/25/18 at 13:00 Ceftriaxone Sodium 50 ml @ 100 mls/hr Q24H IVPB Last administered on 12/26/18 15:14; Admin Dose 100 MLS/HR; Start 12/25/18 at 15:30 Insulin Glargine (Lantus) 40 units HS SC Last administered on 12/25/18 20:31; Admin Dose 40 UNITS; Start 12/25/18 at 21:00 Miscellaneous Information (* Miscellaneous Pharmacy Order) 1 ea ONCE SC ; Start 12/26/18 at 14:00; Status UNV Docusate Sodium (Colace) 100 mg BID PO Last administered on 12/26/18 13:24; Admin Dose 100 MG; Start 12/26/18 at 13:30 ANTON QUINTERO NP Dec 26, 2018 15:20
[2018-12-26] MEDS: RIVAROXABAN 20 MG TABLET PO SCH (17:09)
--- NOTE | 2018-12-26 17:17 | PN ---
Date/Time of Note Date/Time of Note DATE: 12/26/18 TIME: 17:16 Objective Vitals Vital Signs Date Temp Pulse Resp B/P (MAP) Pulse Ox O2 O2 Flow FiO2 Time Delivery Rate 12/26/18 98.0 102 18 104/69 96 Room Air 13:49 (81) 12/24/18 8.0 21:21 Intake and Output 12/25/18 12/25/18 12/26/18 1515:00 23:00 07:00 IntakeIntake Total 960 ml 540 ml 950 ml OutputOutput Total 3500 ml 800 ml 1200 ml BalanceBalance -2540 ml -260 ml -250 ml Results Result Diagram: 12/26/18 0443 12/26/18 044 Medications Medications Current Medications IV Flush (NS 3 ml) 3 ml PER PROTOCOL IV ; Start 12/24/18 at 02:00 Ondansetron HCl (Zofran Inj) 4 mg Q6H PRN IV NAUSEA/VOMITING; Start 12/24/18 at 02:00 Acetaminophen (Tylenol Tab) 650 mg Q6H PRN PO .PAIN 1-3 OR TEMP; Start 12/24/18 at 02:00 Acetaminophen/ Hydrocodone Bitart ([place] (5/325)) 1 tab Q6H PRN PO .MOD PAIN 4- 6 Last administered on 12/24/18at 07:29; Admin Dose 1 TAB; Start 12/24/18 at 02:00 Albuterol/ Ipratropium (Duoneb) 3 ml Q2H RESP THERAPY PRN HHN SHORTNESS OF BREATH; Start 12/24/18 at 02:00 Duloxetine HCl (Cymbalta) 60 mg DAILY PO Last administered on 12/26/18at 08:11; Admin Dose 60 MG; Start 12/24/18 at 09:00 Levothyroxine Sodium (Synthroid) 50 mcg QAM PO Last administered on 12/26/18at 08:11; Admin Dose 50 MCG; Start 12/24/18 at 09:00 Rivaroxaban (Xarelto) 20 mg WITH DINNER PO Last administered on 12/26/18at 17:09; Admin Dose 20 MG; Start 12/24/18 at 17:35 Vancomycin HCl (Vanco Iv Per Pharmacy) VANCOMYCIN PER PHARMACY PER PROTOCOL XX ; Start 12/24/18 at 09:00 Diagnostic Test (Pha) (Accu-Chek) 1 ea 02 XX Last administered on 12/26/18at 01:52; Admin Dose 1 EA; Start 12/24/18 at 02:00 Insulin Aspart (Novolog Insulin Pen) NOVOLOG *MODERATE* ALGORITHM WITH MEALS BEDTIME SC Last administered on 12/26/18at 12:36; Admin Dose 4 UNIT; Start 12/24/18 at 07:35 Vancomycin/Sodium Chloride 250 ml @ 83.333 mls/ hr Q12H IVPB Last administered on 12/26/18at 15:55; Admin Dose 83.333 MLS/HR; Start 12/24/18 at 16:00 Miscellaneous Information 1 ea NOTE XX ; Start 12/24/18 at 03:30 Glucose (Glutose) 15 gm Q15M PRN PO DECREASED GLUCOSE; Start 12/24/18 at 03:30 Glucose (Glutose) 22.5 gm Q15M PRN PO DECREASED GLUCOSE; Start 12/24/18 at 03:30 Dextrose (D50w Syringe) 25 ml Q15M PRN IV DECREASED GLUCOSE; Start 12/24/18 at 03:30 Dextrose (D50w Syringe) 50 ml Q15M PRN IV DECREASED GLUCOSE; Start 12/24/18 at 03:30 Glucagon (Glucagen) 1 mg Q15M PRN IM DECREASED GLUCOSE; Start 12/24/18 at 03:30 Glucose (Glutose) 15 gm Q15M PRN BUCCAL DECREASED GLUCOSE; Start 12/24/18 at 03:30 Miscellaneous Information (Pending [facility] Order For Wound Care) This patient chambers... PRN PRN XX WOUND CARE; Start 12/24/18 at 05:30 Povidone Iodine (Povidone-Iodine) 1 applic BID TOP Last administered on 12/26/18at 10:49; Admin Dose 1 APPLIC; Start 12/24/18 at 11:00 Zolpidem Tartrate (Ambien) 10 mg HS PRN PO INSOMNIA Last administered on 12/26/18at 00:31; Admin Dose 10 MG; Start 12/24/18 at 09:30 Empaglifozin (Jardiance) 25 mg DAILY@08 PO Last administered on 12/26/18at 08:10; Admin Dose 25 MG; Start 12/25/18 at 08:00 Lorazepam (Ativan) 1 mg HS PRN PO ANXIETY Last administered on 12/26/18at 00:31; Admin Dose 1 MG; Start 12/25/18 at 00:30 Metformin HCl (Glucophage) 1,000 mg BID WITH MEALS PO Last administered on 12/26/18 17:09; Admin Dose 1,000 MG; Start 12/25/18 at 17:35 Insulin Aspart (Novolog Insulin Pen) 20 unit WITH MEALS SC Last administered on 12/26/18 17:11; Admin Dose 20 UNIT; Start 12/25/18 at 13:00 Ceftriaxone Sodium 50 ml @ 100 mls/hr Q24H IVPB Last administered on 12/26/18 15:14; Admin Dose 100 MLS/HR; Start 12/25/18 at 15:30 Insulin Glargine (Lantus) 40 units HS SC Last administered on 12/25/18 20:31; Admin Dose 40 UNITS; Start 12/25/18 at 21:00 Miscellaneous Information (* Miscellaneous Pharmacy Order) 1 ea ONCE SC ; Start 12/26/18 at 14:00; Status UNV Docusate Sodium (Colace) 100 mg BID PO Last administered on 12/26/18 13:24; Admin Dose 100 MG; Start 12/26/18 at 13:30 VTE Prophylaxis Risk score (from Nsg)>0 risk: 4 SCD applied (from Ns): No SCD contraindication: other Lines/Catheters IV Catheter Type: Simms in Place: No Assessment/Plan Hospital Course Subjective No acute complaints except for foot pain, patient doing well Objective Physical exam General: Patient is laying in bed and answers questions appropriately Mentation: Patient is alert and oriented 4, Head: Normocephalic atraumatic Eyes: EOMI, pupils reactive to light Neck: Supple, nontender, midline Respiratory: Clear to auscultation bilaterally Cardiovascular: regular rate, no obvious murmurs Gastrointestinal: non-tender to palpation, bowel sounds heard. Neurological: Moves all extremities spontaneously Skin: Right foot ulcer, bandaged, Assessment and plan Acute on chronic right diabetic foot ulcer -Status post debridement and skin flap, done December 24, 2018 -IV antibiotic, cultures pending -Infectious disease consulted -Podiatry consulted Sepsis -IV antibiotic -Cultures pending -Infectious disease recommendations appreciated Hypertension -Continue home meds Diabetes mellitus -Continue home meds, adjust insulin as needed Acute kidney injury -Resolved, patient resolved with IV fluid Hypothyroidism -Continue home medications History of depression -Continue Cymbalta Disposition -Pending cultures, patient will likely go home with IV antibiotic AVERY HUSSEIN Dec 26, 2018 17:17
--- NOTE | 2018-12-26 17:53 | CONS ---
Assessment/Plan Assessment/Plan Problems: (1) Type 2 diabetes mellitus with hyperglycemia Status: Chronic Comment: BG improving but still mostly above goal. Will increase Novolog to 24 units sq qac and Increase lantus to 48 units qhs. Pt. to receive Ozempic 0.5 mg tonight. Reeval glucose tomorrow. Qualifiers: Diabetes mellitus terminal make up operator insulin use: with terminal make up operator use Qualified Codes: E11.65 - Type 2 diabetes mellitus with hyperglycemia; Z79.4 - residential (current) use of insulin Consultation Date/Type/Reason Admit Date/Time Dec 23, 2018 at 19:59 Initial Consult Date 12/25/18 Type of Consult Endocrinology Reason for Consultation T2DM management Requesting Provider: AVERY HUSSEIN Date/Time of Note DATE: 12/26/18 TIME: 17:51 24 HR Interval Summary Constitutional: no complaints, improved Detailed Summary Respiratory: no complaints Cardiovascular: no complaints Gastrointestinal: no complaints Genitourinary: no complaints Musculoskeletal: no complaints Neurologic: no complaints Exam/Review of Systems Exam Vitals VS - Last 72 Hours, by Label Date Temp Pulse Resp B/P (MAP) Pulse Ox O2 O2 Flow FiO2 Time Delivery Rate 12/26/18 98.0 102 18 104/69 96 Room Air 13:49 (81) 12/26/18 97.8 77 18 97/56 (70) 93 Room Air 08:04 12/26/18 97.6 74 18 97/59 (72) 98 Room Air 01:50 12/25/18 97.6 87 18 129/70 94 Room Air 20:00 (89) 12/25/18 97.8 90 18 99/55 (70) 95 14:00 12/25/18 98.1 98 24 89/57 (68) 93 08:00 12/25/18 98.6 110 17 119/61 97 02:30 (80) 12/24/18 98.2 98 18 96/54 (68) 95 22:15 12/24/18 94 12 99/52 (68) 95 Room Air 21:53 12/24/18 98 17 98/57 (71) 96 Room Air 21:48 12/24/18 100 17 102/67 96 Room Air 21:43 (79) 12/24/18 98 16 102/51 94 Room Air 21:38 (68) 12/24/18 100 14 106/55 96 Room Air 21:30 (72) 12/24/18 100 13 133/67 95 Room Air 21:28 (89) 12/24/18 96 15 157/79 95 Room Air 21:26 (105) Mask 12/24/18 98.1 21:25 12/24/18 98.1 101 15 141/70 100 Mask 8.0 21:21 (93) 12/24/18 98.7 98 18 111/72 97 14:18 (85) 12/24/18 99.8 110 20 110/72 95 07:30 (85) 12/24/18 98.9 100 18 103/65 94 02:25 (78) 12/24/18 98.8 102 16 100/61 100 Room Air 02:09 (74) 12/23/18 99.2 103 17 113/69 100 Room Air 22:50 (84) 12/23/18 104 18 128/87 99 Room Air 20:09 (101) 12/23/18 100 15 107/76 99 Room Air 19:30 (86) 12/23/18 113 21 102/69 99 Room Air 18:45 (80) Vital Signs Date Temp Pulse Resp B/P (MAP) Pulse Ox O2 O2 Flow FiO2 Time Delivery Rate 12/26/18 98.0 102 18 104/69 96 Room Air 13:49 (81) 12/24/18 8.0 21:21 Intake and Output 12/25/18 12/25/18 12/26/18 1515:00 23:00 07:00 IntakeIntake Total 960 ml 540 ml 950 ml OutputOutput Total 3500 ml 800 ml 1200 ml BalanceBalance -2540 ml -260 ml -250 ml Constitutional: alert, oriented, obese Psych: no complaints, nl mood/affect Respiratory: clear to auscultation, normal air movement Cardiovascular: regular rate and rhythm, nl pulses; No edema, No murmurs/extra sounds, No rub Gastrointestinal: soft, nl liver, spleen, non-tender, bowel sounds; No mass, No rebound or guarding Musculoskeletal: nl extremities to inspection (RLE wrapped) Extremities: No cyanosis, No clubbing, No edema Neurological: ACCESS TECH II-XII intact, nl mental status, nl speech, nl strength Additional Comments Bedside Glucose - 72 Hours Test 12/24/18 01:03 12/24/18 02:58 12/24/18 08:26 12/24/18 12:34 Bedside 225 258 212 242 Glucose mg/dL (70-220) mg/dL (70-220) mg/dL (70-220) mg/dL (70-220) H H H Test 12/24/18 18:27 12/24/18 21:21 12/24/18 22:34 12/25/18 08:20 Bedside 154 200 243 405 Glucose mg/dL (70-220) mg/dL (70-220) mg/dL (70-220) mg/dL (70-220) H *H Test 12/25/18 12:33 12/25/18 17:01 12/25/18 20:28 12/26/18 01:33 Bedside 369 219 251 199 Glucose mg/dL (70-220) mg/dL (70-220) mg/dL (70-220) mg/dL (70-220) H H Test 12/26/18 08:09 12/26/18 12:32 12/26/18 17:08 Bedside 230 202 118 Glucose mg/dL (70-220) mg/dL (70-220) mg/dL (70-220) H Results Result Diagram: 12/26/18 0443 12/26/18 0443 Results 24hrs Laboratory Tests Test 12/25/18 20:28 12/26/18 01:33 12/26/18 04:43 12/26/18 08:09 Bedside Glucose 251 H 199 230 H White Blood Count 13.9 #H Red Blood Count 4.78 Hemoglobin 11.5 L Hematocrit 37.5 L Mean Corpuscular Volume 78.5 L Mean Corpuscular 24.1 L Hemoglobin Mean Corpuscular 30.7 L Hemoglobin Concent Red Cell Distribution 15.6 H Width Platelet Count 85 #L Mean Platelet Volume Immature Granulocytes % 0.600 H Neutrophils % 83.2 H Lymphocytes % 9.8 L Monocytes % 6.1 Eosinophils % 0.1 Basophils % 0.2 Nucleated Red Blood 0.0 Cells % Immature Granulocytes # 0.080 H Neutrophils # 11.5 H Lymphocytes # 1.4 Monocytes # 0.9 Eosinophils # 0.0 Basophils # 0.0 Nucleated Red Blood 0.0 Cells # Sodium Level 140 Potassium Level 4.3 Chloride Level 104 Carbon Dioxide Level 23 Anion Gap 13 # Blood Urea Nitrogen 33 H Creatinine 1.24 Est Glomerular Filtrat > 60 Rate mL/min Glucose Level 223 #H Calcium Level 9.2 Phosphorus Level 5.0 H Magnesium Level 2.1 Test 12/26/18 12:32 12/26/18 17:08 Bedside Glucose 202 118 Medications Medication Current Medications IV Flush (NS 3 ml) 3 ml PER PROTOCOL IV ; Start 12/24/18 at 02:00 Ondansetron HCl (Zofran Inj) 4 mg Q6H PRN IV NAUSEA/VOMITING; Start 12/24/18 at 02:00 Acetaminophen (Tylenol Tab) 650 mg Q6H PRN PO .PAIN 1-3 OR TEMP; Start 12/24/18 at 02:00 Acetaminophen/ Hydrocodone Bitart ([place] (5/325)) 1 tab Q6H PRN PO .MOD PAIN 4- 6 Last administered on 12/24/18at 07:29; Admin Dose 1 TAB; Start 12/24/18 at 02:00 Albuterol/ Ipratropium (Duoneb) 3 ml Q2H RESP THERAPY PRN HHN SHORTNESS OF BREATH; Start 12/24/18 at 02:00 Duloxetine HCl (Cymbalta) 60 mg DAILY PO Last administered on 12/26/18at 08:11; Admin Dose 60 MG; Start 12/24/18 at 09:00 Levothyroxine Sodium (Synthroid) 50 mcg QAM PO Last administered on 12/26/18at 08:11; Admin Dose 50 MCG; Start 12/24/18 at 09:00 Rivaroxaban (Xarelto) 20 mg WITH DINNER PO Last administered on 12/26/18at 17:09; Admin Dose 20 MG; Start 12/24/18 at 17:35 Vancomycin HCl (Vanco Iv Per Pharmacy) VANCOMYCIN PER PHARMACY PER PROTOCOL XX ; Start 12/24/18 at 09:00 Diagnostic Test (Pha) (Accu-Chek) 1 ea 02 XX Last administered on 12/26/18at 01:52; Admin Dose 1 EA; Start 12/24/18 at 02:00 Insulin Aspart (Novolog Insulin Pen) NOVOLOG *MODERATE* ALGORITHM WITH MEALS BEDTIME SC Last administered on 12/26/18at 12:36; Admin Dose 4 UNIT; Start 12/24/18 at 07:35 Vancomycin/Sodium Chloride 250 ml @ 83.333 mls/ hr Q12H IVPB Last administered on 12/26/18 15:55; Admin Dose 83.333 MLS/HR; Start 12/24/18 at 16:00 Miscellaneous Information 1 ea NOTE XX ; Start 12/24/18 at 03:30 Glucose (Glutose) 15 gm Q15M PRN PO DECREASED GLUCOSE; Start 12/24/18 at 03:30 Glucose (Glutose) 22.5 gm Q15M PRN PO DECREASED GLUCOSE; Start 12/24/18 at 03:30 Dextrose (D50w Syringe) 25 ml Q15M PRN IV DECREASED GLUCOSE; Start 12/24/18 at 03:30 Dextrose (D50w Syringe) 50 ml Q15M PRN IV DECREASED GLUCOSE; Start 12/24/18 at 03:30 Glucagon (Glucagen) 1 mg Q15M PRN IM DECREASED GLUCOSE; Start 12/24/18 at 03:30 Glucose (Glutose) 15 gm Q15M PRN BUCCAL DECREASED GLUCOSE; Start 12/24/18 at 03:30 Miscellaneous Information (Pending [facility] Order For Wound Care) This patient chambers... PRN PRN XX WOUND CARE; Start 12/24/18 at 05:30 Povidone Iodine (Povidone-Iodine) 1 applic BID TOP Last administered on 12/26/18at 10:49; Admin Dose 1 APPLIC; Start 12/24/18 at 11:00 Zolpidem Tartrate (Ambien) 10 mg HS PRN PO INSOMNIA Last administered on 12/26/18 00:31; Admin Dose 10 MG; Start 12/24/18 at 09:30 Empaglifozin (Jardiance) 25 mg DAILY@08 PO Last administered on 12/26/18 08:10; Admin Dose 25 MG; Start 12/25/18 at 08:00 Lorazepam (Ativan) 1 mg HS PRN PO ANXIETY Last administered on 12/26/18 00:31; Admin Dose 1 MG; Start 12/25/18 at 00:30 Metformin HCl (Glucophage) 1,000 mg BID WITH MEALS PO Last administered on 12/26/18 17:09; Admin Dose 1,000 MG; Start 12/25/18 at 17:35 Ceftriaxone Sodium 50 ml @ 100 mls/hr Q24H IVPB Last administered on 8/2/19at 15:14; Admin Dose 100 MLS/HR; Start 12/25/18 at 15:30 Miscellaneous Information (* Miscellaneous Pharmacy Order) 1 ea ONCE SC ; Start 12/26/18 at 14:00; Status UNV Docusate Sodium (Colace) 100 mg BID PO Last administered on 12/26/18at 13:24; Admin Dose 100 MG; Start 12/26/18 at 13:30 Insulin Aspart (Novolog Insulin Pen) 24 unit WITH MEALS SC ; Start 12/26/18 at 17:35 Insulin Glargine (Lantus) 48 units HS SC ; Start 12/26/18 at 21:00 MICHAEL MIXON MD Dec 26, 2018 17:53
--- NOTE | 2018-12-26 18:37 | PN ---
DATE: 12/26/2018 SUBJECTIVE: The patient was seen in bedside. Preliminary cultures remain negative. The patient's b lood sugars have been tightly controlled. I appreciate endocrinology recommendations. He is postop day 3. The patient denies any acute complaints. OBJECTIVE: VITAL SIGNS: Temperature 98, pulse 102, respiratory rate 18, blood pressure 104/69, pulse oximetry i s 96% on room air. GENERAL: Alert and oriented. EXTREMITIES: Has a wound VAC. No drainage. Dressing was removed. Skin edges are well approximated . No signs of cellulitis, malodor. The patient is with chronic varus deformity of the ankle. A 2+ DP, PT pulse. Mild sanguineous drainage. LABORATORIES: WBC 13.9, hemoglobin 11.5, hematocrit 37.5, platelets 85. Wound cultures: Staph devin us. ASSESSMENT: 1. Right foot diabetic ulceration. 2. Cellulitis with Staphylococcus aureus. Definitive results are pending. Pathology report is pend ing. Differential diagnosis is osteomyelitis. 3. Diabetes type 2 with peripheral neuropathy. PLAN: I recommend nonweightbearing. Plan cast application. The patient with Staph aureus, awaiting final culture results. If positive bone cultures, we will need a PICC line. I discussed followup a nd tight glycemic control. Dictated By: JOSÉ DE LA GARZA DPM RB/MO Conf#: [id number] DID#: [id number] CC: NELY CAAL MD; AVERY HUSSEIN MD;*EndCC*
[2018-12-26 20:03] VITALS: BP 101/55; PULSE 88; RESP 18
[2018-12-26] MEDS: INSULIN GLARGINE [LANTus] (100 UNITS/ML) SYG SC SCH (20:50)
[2018-12-27] MEDS: LORAZEPAM 1 MG TAB PO PRN (00:19)
[2018-12-27] MEDS: ZOLPIDEM 5 MG TAB PO PRN (00:20)
[2018-12-27] MEDS: ACCU-CHEK XX SCH (01:47)
[2018-12-27 02:00] VITALS: BP 96/57; PULSE 97; RESP 18
[2018-12-27] MEDS: VANCOMYCIN 1.5 GM/NS 250 ML 250 ML IVPB SCH ×2 (03:02→19:05)
[2018-12-27 07:48] VITALS: BP 99/69; PULSE 68; RESP 18
[2018-12-27] MEDS: DULOXETINE 30 MG CAP DR PO SCH (08:27)
[2018-12-27] MEDS: DOCUSATE SODIUM 100 MG CAP PO SCH ×3 (08:27→21:03)
[2018-12-27] MEDS: LEVOTHYROXINE 50 MCG TAB PO SCH (08:27)
[2018-12-27] MEDS: metFORMIN 500 MG TAB PO SCH ×2 (08:28→17:34)
[2018-12-27] MEDS: EMPAGLIFLOZIN 10 MG TABLET PO SCH (08:28)
[2018-12-27] MEDS: POVIDONE IODINE 10% 28.4 GM OINT TOP SCH ×2 (08:29→21:00)
[2018-12-27] MEDS: INSULIN ASPART [NOVOLOG] 3 ML PEN SC SCH ×7 (08:32→20:58)
--- NOTE | 2018-12-27 10:25 | CONS ---
Assessment/Plan Assessment/Plan Problems: (1) Type 2 diabetes mellitus with hyperglycemia Status: Chronic Comment: Marked improvement in glycemic control. Would continue this regimen for both insulin and non-insulin therapies after d/c. Pt. well for d/c from endo standpoint. Defer to primary team and podiatry for d/c plans. Qualifiers: Diabetes mellitus ocean transportation intermediary insulin use: with ocean transportation intermediary use Qualified Codes: E11.65 - Type 2 diabetes mellitus with hyperglycemia; Z79.4 - FPC (current) use of insulin Consultation Date/Type/Reason Admit Date/Time Dec 23, 2018 at 19:59 Initial Consult Date 12/25/18 Type of Consult Endocrinology Reason for Consultation T2DM management Requesting Provider: AVERY HUSSEIN Date/Time of Note DATE: 12/27/18 TIME: 10:21 24 HR Interval Summary Constitutional: no complaints, improved Detailed Summary Respiratory: no complaints Cardiovascular: no complaints Gastrointestinal: no complaints Genitourinary: no complaints Musculoskeletal: no complaints Neurologic: no complaints Exam/Review of Systems Exam Vitals VS - Last 72 Hours, by Label Date Temp Pulse Resp B/P (MAP) Pulse Ox O2 O2 Flow FiO2 Time Delivery Rate 12/27/18 97.5 68 18 99/69 (79) 95 Room Air 07:48 12/27/18 97.8 97 18 96/57 (70) 93 02:00 12/26/18 97.8 88 18 101/55 98 20:03 (70) 12/26/18 98.0 102 18 104/69 96 Room Air 13:49 (81) 12/26/18 97.8 77 18 97/56 (70) 93 Room Air 08:04 12/26/18 97.6 74 18 97/59 (72) 98 Room Air 01:50 12/25/18 97.6 87 18 129/70 94 Room Air 20:00 (89) 12/25/18 97.8 90 18 99/55 (70) 95 14:00 12/25/18 98.1 98 24 89/57 (68) 93 08:00 12/25/18 98.6 110 17 119/61 97 02:30 (80) 12/24/18 98.2 98 18 96/54 (68) 95 22:15 12/24/18 94 12 99/52 (68) 95 Room Air 21:53 12/24/18 98 17 98/57 (71) 96 Room Air 21:48 12/24/18 100 17 102/67 96 Room Air 21:43 (79) 12/24/18 98 16 102/51 94 Room Air 21:38 (68) 12/24/18 100 14 106/55 96 Room Air 21:30 (72) 12/24/18 100 13 133/67 95 Room Air 21:28 (89) 12/24/18 96 15 157/79 95 Room Air 21:26 (105) Mask 12/24/18 98.1 21:25 12/24/18 98.1 101 15 141/70 100 Mask 8.0 21:21 (93) 12/24/18 98.7 98 18 111/72 97 14:18 (85) Vital Signs Date Temp Pulse Resp B/P (MAP) Pulse Ox O2 O2 Flow FiO2 Time Delivery Rate 12/27/18 97.5 68 18 99/69 (79) 95 Room Air 07:48 12/24/18 8.0 21:21 Intake and Output 12/26/18 12/26/18 12/27/18 1515:00 23:00 07:00 IntakeIntake Total 600 ml 600 ml 250 ml OutputOutput Total 1650 ml 500 ml 1325 ml BalanceBalance -1050 ml 100 ml -1075 ml Constitutional: alert, oriented, obese Psych: no complaints, nl mood/affect Respiratory: clear to auscultation, normal air movement Cardiovascular: regular rate and rhythm, nl pulses; No edema, No murmurs/extra sounds, No rub Gastrointestinal: soft, nl liver, spleen, non-tender, bowel sounds; No mass, No rebound or guarding Musculoskeletal: No nl extremities to inspection (RLE wrapped) Extremities: No cyanosis, No clubbing, No edema Neurological: FULFILLMENT REPRESENTATIVE II-XII intact, nl mental status, nl speech, nl strength Additional Comments Bedside Glucose - 72 Hours Test 12/24/18 12:34 12/24/18 18:27 12/24/18 21:21 12/24/18 22:34 Bedside 242 154 200 243 Glucose mg/dL (70-220) mg/dL (70-220) mg/dL (70-220) mg/dL (70-220) H H Test 12/25/18 08:20 12/25/18 12:33 12/25/18 17:01 8/1/19 20:28 Bedside 405 369 219 251 Glucose mg/dL (70-220) mg/dL (70-220) mg/dL (70-220) mg/dL (70-220) *H H H Test 12/26/18 01:33 12/26/18 08:09 12/26/18 12:32 12/26/18 17:08 Bedside 199 230 202 118 Glucose mg/dL (70-220) mg/dL (70-220) mg/dL (70-220) mg/dL (70-220) H Test 12/26/18 20:48 12/27/18 08:09 Bedside 176 157 Glucose mg/dL (70-220) mg/dL (70-220) Results Result Diagram: 12/27/18 0457 12/27/18 0457 Results 24hrs Laboratory Tests Test 12/26/18 12:32 12/26/18 17:08 12/26/18 20:48 12/27/18 04:57 Bedside Glucose 202 118 176 White Blood Count 9.1 # Red Blood Count 4.71 Hemoglobin 11.4 L Hematocrit 37.2 L Mean Corpuscular Volume 79.0 L Mean Corpuscular 24.2 L Hemoglobin Mean Corpuscular 30.6 L Hemoglobin Concent Red Cell Distribution 15.8 H Width Platelet Count 108 #L Mean Platelet Volume Immature Granulocytes % 0.600 H Neutrophils % 69.8 Lymphocytes % 22.2 Monocytes % 6.9 Eosinophils % 0.2 Basophils % 0.3 Nucleated Red Blood 0.0 Cells % Immature Granulocytes # 0.050 H Neutrophils # 6.3 Lymphocytes # 2.0 Monocytes # 0.6 Eosinophils # 0.0 Basophils # 0.0 Nucleated Red Blood 0.0 Cells # Sodium Level 138 Potassium Level 3.9 Chloride Level 104 Carbon Dioxide Level 24 Anion Gap 10 Blood Urea Nitrogen 30 H Creatinine 1.01 Est Glomerular Filtrat > 60 Rate mL/min Glucose Level 147 # Calcium Level 8.8 Phosphorus Level 5.3 H Magnesium Level 1.8 Test 12/27/18 08:09 Bedside Glucose 157 Medications Medication Current Medications IV Flush (NS 3 ml) 3 ml PER PROTOCOL IV ; Start 12/24/18 at 02:00 Ondansetron HCl (Zofran Inj) 4 mg Q6H PRN IV NAUSEA/VOMITING; Start 12/24/18 at 02:00 Acetaminophen (Tylenol Tab) 650 mg Q6H PRN PO .PAIN 1-3 OR TEMP; Start 12/24/18 at 02:00 Acetaminophen/ Hydrocodone Bitart ([place] (5/325)) 1 tab Q6H PRN PO .MOD PAIN 4- 6 Last administered on 12/24/18at 07:29; Admin Dose 1 TAB; Start 12/24/18 at 02:00 Albuterol/ Ipratropium (Duoneb) 3 ml Q2H RESP THERAPY PRN HHN SHORTNESS OF BREATH; Start 12/24/18 at 02:00 Duloxetine HCl (Cymbalta) 60 mg DAILY PO Last administered on 12/27/18at 08:27; Admin Dose 60 MG; Start 12/24/18 at 09:00 Levothyroxine Sodium (Synthroid) 50 mcg QAM PO Last administered on 12/27/18at 08:27; Admin Dose 50 MCG; Start 12/24/18 at 09:00 Rivaroxaban (Xarelto) 20 mg WITH DINNER PO Last administered on 12/26/18at 17:09; Admin Dose 20 MG; Start 12/24/18 at 17:35 Vancomycin HCl (Vanco Iv Per Pharmacy) VANCOMYCIN PER PHARMACY PER PROTOCOL XX ; Start 12/24/18 at 09:00 Diagnostic Test (Pha) (Accu-Chek) 1 ea 02 XX Last administered on 12/26/18at 01:52; Admin Dose 1 EA; Start 12/24/18 at 02:00 Insulin Aspart (Novolog Insulin Pen) NOVOLOG *MODERATE* ALGORITHM WITH MEALS BEDTIME SC Last administered on 12/27/18at 08:32; Admin Dose 2 UNIT; Start 12/24/18 at 07:35 Vancomycin/Sodium Chloride 250 ml @ 83.333 mls/ hr Q12H IVPB Last administered on 12/27/18at 03:02; Admin Dose 83.333 MLS/HR; Start 12/24/18 at 16:00 Miscellaneous Information 1 ea NOTE XX ; Start 12/24/18 at 03:30 Glucose (Glutose) 15 gm Q15M PRN PO DECREASED GLUCOSE; Start 12/24/18 at 03:30 Glucose (Glutose) 22.5 gm Q15M PRN PO DECREASED GLUCOSE; Start 12/24/18 at 03:30 Dextrose (D50w Syringe) 25 ml Q15M PRN IV DECREASED GLUCOSE; Start 12/24/18 at 03:30 Dextrose (D50w Syringe) 50 ml Q15M PRN IV DECREASED GLUCOSE; Start 12/24/18 at 03:30 Glucagon (Glucagen) 1 mg Q15M PRN IM DECREASED GLUCOSE; Start 12/24/18 at 03:30 Glucose (Glutose) 15 gm Q15M PRN BUCCAL DECREASED GLUCOSE; Start 12/24/18 at 03:30 Miscellaneous Information (Pending [facility] Order For Wound Care) This patient chambers ... PRN PRN XX WOUND CARE; Start 12/24/18 at 05:30 Povidone Iodine (Povidone-Iodine) 1 applic BID TOP Last administered on 12/27/18at 08:29; Admin Dose 1 APPLIC; Start 12/24/18 at 11:00 Zolpidem Tartrate (Ambien) 10 mg HS PRN PO INSOMNIA Last administered on 12/27/18at 00:20; Admin Dose 10 MG; Start 12/24/18 at 09:30 Empaglifozin (Jardiance) 25 mg DAILY@08 PO Last administered on 12/27/18at 08:28; Admin Dose 25 MG; Start 12/25/18 at 08:00 Lorazepam (Ativan) 1 mg HS PRN PO ANXIETY Last administered on 12/27/18at 00:19; Admin Dose 1 MG; Start 12/25/18 at 00:30 Metformin HCl (Glucophage) 1,000 mg BID WITH MEALS PO Last administered on 12/27/18at 08:28; Admin Dose 1,000 MG; Start 12/25/18 at 17:35 Ceftriaxone Sodium 50 ml @ 100 mls/hr Q24H IVPB Last administered on 12/26/18at 15:14; Admin Dose 100 MLS/HR; Start 12/25/18 at 15:30 Miscellaneous Information (* Miscellaneous Pharmacy Order) 1 ea ONCE SC ; Start 12/26/18 at 14:00; Status UNV Docusate Sodium (Colace) 100 mg BID PO Last administered on 12/27/18at 08:27; Admin Dose 100 MG; Start 12/26/18 at 13:30 Insulin Aspart (Novolog Insulin Pen) 24 unit WITH MEALS SC Last administered on 12/27/18at 08:33; Admin Dose 24 UNIT; Start 12/26/18 at 17:35 Insulin Glargine (Lantus) 48 units HS SC Last administered on 12/26/18at 20:50; Admin Dose 48 UNITS; Start 12/26/18 at 21:00 MICHAEL MIXON MD Dec 27, 2018 10:24
--- NOTE | 2018-12-27 11:30 | CONS ---
Assessment/Plan Assessment/Plan Assessment/Plan (Daily) Right foot abscess. Right foot diabetic foot ulceration. Diabetes type 2, peripheral neuropathy. History of osteomyelitis fifth metatarsal. Charcot foot. Varus deformity, right foot. History of fifth metatarsal head resection. Thrombocytopenia. Plan Awaiting pathology results of bone. Cultures results showing staph coag neg and staph aureus. Appreciate ID recommendations. Non weight bearing to right foot. Discussed with patient the need for PICC line. Consultation Date/Type/Reason Admit Date/Time Dec 23, 2018 at 19:59 Initial Consult Date Requesting Provider: AVERY HUSSEIN Date/Time of Note DATE: 12/27/18 TIME: 11:30 24 HR Interval Summary Free Text/Dictation No acute events overnight. Exam/Review of Systems Exam Vitals Vital Signs Date Temp Pulse Resp B/P (MAP) Pulse Ox O2 O2 Flow FiO2 Time Delivery Rate 12/27/18 97.5 68 18 99/69 (79) 95 Room Air 07:48 12/24/18 8.0 21:21 Intake and Output 12/26/18 12/26/18 12/27/18 1515:00 23:00 07:00 IntakeIntake Total 600 ml 600 ml 250 ml OutputOutput Total 1650 ml 500 ml 1325 ml BalanceBalance -1050 ml 100 ml -1075 ml Exam Posterior splint clean dry and intact, no strikethrough no proximal streaking. Results Result Diagram: 12/27/18 0457 12/27/18 0457 Results 24hrs Laboratory Tests Test 12/26/18 12:32 12/26/18 17:08 12/26/18 20:48 12/27/18 04:57 Bedside Glucose 202 118 176 White Blood Count 9.1 # Red Blood Count 4.71 Hemoglobin 11.4 L Hematocrit 37.2 L Mean Corpuscular Volume 79.0 L Mean Corpuscular 24.2 L Hemoglobin Mean Corpuscular 30.6 L Hemoglobin Concent Red Cell Distribution 15.8 H Width Platelet Count 108 #L Mean Platelet Volume Immature Granulocytes % 0.600 H Neutrophils % 69.8 Lymphocytes % 22.2 Monocytes % 6.9 Eosinophils % 0.2 Basophils % 0.3 Nucleated Red Blood 0.0 Cells % Immature Granulocytes # 0.050 H Neutrophils # 6.3 Lymphocytes # 2.0 Monocytes # 0.6 Eosinophils # 0.0 Basophils # 0.0 Nucleated Red Blood 0.0 Cells # Sodium Level 138 Potassium Level 3.9 Chloride Level 104 Carbon Dioxide Level 24 Anion Gap 10 Blood Urea Nitrogen 30 H Creatinine 1.01 Est Glomerular Filtrat > 60 Rate mL/min Glucose Level 147 # Calcium Level 8.8 Phosphorus Level 5.3 H Magnesium Level 1.8 Test 12/27/18 08:09 Bedside Glucose 157 Medications Medication Current Medications IV Flush (NS 3 ml) 3 ml PER PROTOCOL IV ; Start 12/24/18 at 02:00 Ondansetron HCl (Zofran Inj) 4 mg Q6H PRN IV NAUSEA/VOMITING; Start 12/24/18 at 02:00 Acetaminophen (Tylenol Tab) 650 mg Q6H PRN PO .PAIN 1-3 OR TEMP; Start 12/24/18 at 02:00 Acetaminophen/ Hydrocodone Bitart ([place] (5/325)) 1 tab Q6H PRN PO .MOD PAIN 4- 6 Last administered on 12/24/18at 07:29; Admin Dose 1 TAB; Start 12/24/18 at 02:00 Albuterol/ Ipratropium (Duoneb) 3 ml Q2H RESP THERAPY PRN HHN SHORTNESS OF BREATH; Start 12/24/18 at 02:00 Duloxetine HCl (Cymbalta) 60 mg DAILY PO Last administered on 12/27/18at 08:27; Admin Dose 60 MG; Start 12/24/18 at 09:00 Levothyroxine Sodium (Synthroid) 50 mcg QAM PO Last administered on 12/27/18at 08:27; Admin Dose 50 MCG; Start 12/24/18 at 09:00 Rivaroxaban (Xarelto) 20 mg WITH DINNER PO Last administered on 12/26/18at 17:09; Admin Dose 20 MG; Start 12/24/18 at 17:35 Vancomycin HCl (Vanco Iv Per Pharmacy) VANCOMYCIN PER PHARMACY PER PROTOCOL XX ; Start 12/24/18 at 09:00 Diagnostic Test (Pha) (Accu-Chek) 1 ea XX Last administered on 12/26/18at 01:52; Admin Dose 1 EA; Start 12/24/18 at 02:00 Insulin Aspart (Novolog Insulin Pen) NOVOLOG *MODERATE* ALGORITHM WITH MEALS BEDTIME SC Last administered on 12/27/18at 08:32; Admin Dose 2 UNIT; Start 12/24/18 at 07:35 Vancomycin/Sodium Chloride 250 ml @ 83.333 mls/ hr Q12H IVPB Last administered on 12/27/18at 03:02; Admin Dose 83.333 MLS/HR; Start 12/24/18 at 16:00 Miscellaneous Information 1 ea NOTE XX ; Start 12/24/18 at 03:30 Glucose (Glutose) 15 gm Q15M PRN PO DECREASED GLUCOSE; Start 12/24/18 at 03:30 Glucose (Glutose) 22.5 gm Q15M PRN PO DECREASED GLUCOSE; Start 12/24/18 at 03:30 Dextrose (D50w Syringe) 25 ml Q15M PRN IV DECREASED GLUCOSE; Start 12/24/18 at 03:30 Dextrose (D50w Syringe) 50 ml Q15M PRN IV DECREASED GLUCOSE; Start 12/24/18 at 03:30 Glucagon (Glucagen) 1 mg Q15M PRN IM DECREASED GLUCOSE; Start 12/24/18 at 03:30 Glucose (Glutose) 15 gm Q15M PRN BUCCAL DECREASED GLUCOSE; Start 12/24/18 at 03:30 [facility] This patient chambers... PRN PRN XX WOUND CARE; Start 12/24/18 at 05:30 Povidone Iodine (Povidone-Iodine) 1 applic BID TOP Last administered on 12/27/18at 08:29; Admin Dose 1 APPLIC; Start 12/24/18 at 11:00 Zolpidem Tartrate (Ambien) 10 mg HS PRN PO INSOMNIA Last administered on 12/27/18at 00:20; Admin Dose 10 MG; Start 12/24/18 at 09:30 Empaglifozin (Jardiance) 25 mg DAILY@08 PO Last administered on 12/27/18at 08:28; Admin Dose 25 MG; Start 12/25/18 at 08:00 Lorazepam (Ativan) 1 mg HS PRN PO ANXIETY Last administered on 12/27/18at 00:19; Admin Dose 1 MG; Start 12/25/18 at 00:30 Metformin HCl (Glucophage) 1,000 mg BID WITH MEALS PO Last administered on 12/27/18at 08:28; Admin Dose 1,000 MG; Start 12/25/18 at 17:35 Ceftriaxone Sodium 50 ml @ 100 mls/hr Q24H IVPB Last administered on 12/26/18at 15:14; Admin Dose 100 MLS/HR; Start 12/25/18 at 15:30 Miscellaneous Information (* Miscellaneous Pharmacy Order) 1 ea ONCE SC ; Start 12/26/18 at 14:00; Status UNV Docusate Sodium (Colace) 100 mg BID PO Last administered on 12/27/18at 08:27; Admin Dose 100 MG; Start 12/26/18 at 13:30 Insulin Aspart (Novolog Insulin Pen) 24 unit WITH MEALS SC Last administered on 12/27/18at 08:33; Admin Dose 24 UNIT; Start 12/26/18 at 17:35 Insulin Glargine (Lantus) 48 units HS SC Last administered on 12/26/18at 20:50; Admin Dose 48 UNITS; Start 12/26/18 at 21:00 MARIANGEL RODRIGUEZ DPM Dec 27, 2018 11:30
--- NOTE | 2018-12-27 13:45 | PN ---
Date/Time of Note Date/Time of Note DATE: 12/27/18 TIME: 13:45 Objective Vitals Vital Signs Date Temp Pulse Resp B/P (MAP) Pulse Ox O2 O2 Flow FiO2 Time Delivery Rate 12/27/18 97.5 68 18 99/69 (79) 95 Room Air 07:48 12/24/18 8.0 21:21 Intake and Output 12/26/18 12/26/18 12/27/18 1515:00 23:00 07:00 IntakeIntake Total 600 ml 600 ml 250 ml OutputOutput Total 1650 ml 500 ml 1325 ml BalanceBalance -1050 ml 100 ml -1075 ml Results Result Diagram: 12/27/18 0457 12/27/18 0457 Medications Medications Current Medications IV Flush (NS 3 ml) 3 ml PER PROTOCOL IV ; Start 12/24/18 at 02:00 Ondansetron HCl (Zofran Inj) 4 mg Q6H PRN IV NAUSEA/VOMITING; Start 12/24/18 at 02:00 Acetaminophen (Tylenol Tab) 650 mg Q6H PRN PO .PAIN 1-3 OR TEMP; Start 12/24/18 at 02:00 Acetaminophen/ Hydrocodone Bitart ([place] (5/325)) 1 tab Q6H PRN PO .MOD PAIN 4- 6 Last administered on 12/24/18at 07:29; Admin Dose 1 TAB; Start 12/24/18 at 02:00 Albuterol/ Ipratropium (Duoneb) 3 ml Q2H RESP THERAPY PRN HHN SHORTNESS OF BREATH; Start 12/24/18 at 02:00 Duloxetine HCl (Cymbalta) 60 mg DAILY PO Last administered on 12/27/18at 08:27; Admin Dose 60 MG; Start 12/24/18 at 09:00 Levothyroxine Sodium (Synthroid) 50 mcg QAM PO Last administered on 12/27/18 08:27; Admin Dose 50 MCG; Start 12/24/18 at 09:00 Rivaroxaban (Xarelto) 20 mg WITH DINNER PO Last administered on 12/26/18at 17:09; Admin Dose 20 MG; Start 12/24/18 at 17:35 Vancomycin HCl (Vanco Iv Per Pharmacy) VANCOMYCIN PER PHARMACY PER PROTOCOL XX ; Start 12/24/18 at 09:00 Diagnostic Test (Pha) (Accu-Chek) 1 ea 02 XX Last administered on 12/26/18at 01:52; Admin Dose 1 EA; Start 12/24/18 at 02:00 Insulin Aspart (Novolog Insulin Pen) NOVOLOG *MODERATE* ALGORITHM WITH MEALS BEDTIME SC Last administered on 12/27/18 12:52; Admin Dose 2 UNIT; Start 12/24/18 at 07:35 Vancomycin/Sodium Chloride 250 ml @ 83.333 mls/ hr Q12H IVPB Last administered on 12/27/18 03:02; Admin Dose 83.333 MLS/HR; Start 12/24/18 at 16:00 Miscellaneous Information 1 ea NOTE XX ; Start 12/24/18 at 03:30 Glucose (Glutose) 15 gm Q15M PRN PO DECREASED GLUCOSE; Start 12/24/18 at 03:30 Glucose (Glutose) 22.5 gm Q15M PRN PO DECREASED GLUCOSE; Start 12/24/18 at 03:30 Dextrose (D50w Syringe) 25 ml Q15M PRN IV DECREASED GLUCOSE; Start 12/24/18 at 03:30 Dextrose (D50w Syringe) 50 ml Q15M PRN IV DECREASED GLUCOSE; Start 12/24/18 at 03:30 Glucagon (Glucagen) 1 mg Q15M PRN IM DECREASED GLUCOSE; Start 12/24/18 at 03:30 Glucose (Glutose) 15 gm Q15M PRN BUCCAL DECREASED GLUCOSE; Start 12/24/18 at 03:30 Miscellaneous Information (Pending [facility] Order For Wound Care) This patient chambers... PRN PRN XX WOUND CARE; Start 12/24/18 at 05:30 Povidone Iodine (Povidone-Iodine) 1 applic BID TOP Last administered on 12/27/18 08:29; Admin Dose 1 APPLIC; Start 12/24/18 at 11:00 Zolpidem Tartrate (Ambien) 10 mg HS PRN PO INSOMNIA Last administered on 12/27/18at 00:20; Admin Dose 10 MG; Start 12/24/18 at 09:30 Empaglifozin (Jardiance) 25 mg DAILY@08 PO Last administered on 12/27/18at 08:28; Admin Dose 25 MG; Start 12/25/18 at 08:00 Lorazepam (Ativan) 1 mg HS PRN PO ANXIETY Last administered on 12/27/18 00:19; Admin Dose 1 MG; Start 12/25/18 at 00:30 Metformin HCl (Glucophage) 1,000 mg BID WITH MEALS PO Last administered on 12/27/18 08:28; Admin Dose 1,000 MG; Start 12/25/18 at 17:35 Ceftriaxone Sodium 50 ml @ 100 mls/hr Q24H IVPB Last administered on 12/26/18 15:14; Admin Dose 100 MLS/HR; Start 12/25/18 at 15:30 Miscellaneous Information (* Miscellaneous Pharmacy Order) 1 ea ONCE SC ; Start 12/26/18 at 14:00; Status UNV Docusate Sodium (Colace) 100 mg BID PO Last administered on 12/27/18 08:27; Admin Dose 100 MG; Start 12/26/18 at 13:30 Insulin Aspart (Novolog Insulin Pen) 24 unit WITH MEALS SC Last administered on 12/27/18 12:51; Admin Dose 24 UNIT; Start 12/26/18 at 17:35 Insulin Glargine (Lantus) 48 units HS SC Last administered on 12/26/18 20:50; Admin Dose 48 UNITS; Start 12/26/18 at 21:00 VTE Prophylaxis Risk score (from Nsg)>0 risk: 8 SCD applied (from Ns): No SCD contraindication: other Lines/Catheters IV Catheter Type: Simms in Place: No Assessment/Plan Hospital Course Subjective No acute complaints except for foot pain, patient doing well Objective Physical exam General: Patient is laying in bed and answers questions appropriately Mentation: Patient is alert and oriented 4, Head: Normocephalic atraumatic Eyes: EOMI, pupils reactive to light Neck: Supple, nontender, midline Respiratory: Clear to auscultation bilaterally Cardiovascular: regular rate, no obvious murmurs Gastrointestinal: non-tender to palpation, bowel sounds heard. Neurological: Moves all extremities spontaneously Skin: Right foot ulcer, bandaged, Assessment and plan Acute on chronic right diabetic foot ulcer -Status post debridement and skin flap, done December 24, 2018 -IV antibiotic, cultures pending -Infectious disease consulted -Podiatry consulted Sepsis -IV antibiotic -Cultures pending -Infectious disease recommendations appreciated Hypertension -Continue home meds Diabetes mellitus -Continue home meds, adjust insulin as needed Acute kidney injury -Resolved, patient resolved with IV fluid Hypothyroidism -Continue home medications History of depression -Continue Cymbalta Disposition -Pending cultures, patient will likely go home with IV antibiotics, but duration is still pending given bone biopsy results. osteo vs no osteo. AVERY HUSSEIN Dec 27, 2018 13:45
[2018-12-27 14:00] VITALS: BP 111/79; PULSE 68; RESP 18
[2018-12-27] MEDS: CEFTRIAXONE 1 GM/50 ML (PMX) 50 ML IVPB SCH (15:55)
[2018-12-27] MEDS: RIVAROXABAN 20 MG TABLET PO SCH (17:34)
--- NOTE | 2018-12-27 19:59 | CONS ---
Assessment/Plan Assessment/Plan Hospital Course (Demo Recall) ID PROGRESS NOTE CURRENT ABX: DAY # => Vanco IV + Ceftriaxone 12/27/1845612/27/[id number] POD # 3=>DATE OF OPERATION: 12/24/2018 * PROCEDURES PERFORMED: 1. Right foot incision and drainage.2. Bone biopsy fifth metatarsal.3. Local rotation with advancement flap closure. 4. Abductor minimus digiti muscle flap. 5. Application of wound VAC. 24H INTERVAL SUMMARY * Resting in bed, VSS, NAD, no fevers * CHART REVIEWED DIAGNOSTIC IMAGING * 12/23/18 CXR: No acute cardiopulmonary disease. Questionable small lucent lesion in the lateral portion of the left scapula versus artifact. MICRO/OTHER * 12/24/18 BCX (-) * 12/24/18 WOUND CX: WOUND CULTURE Final Organism 1 STAPHYLOCOCCUS AUREUS QUANTITY RARE Organism 2 COAGULASE NEGATIVE STAPH QUANTITY RARE * 12/23/18 BCx (+) BLOOD CULTURE Final BCULT GRAM BOTTLE 1 Gram positive cocci in clusters 1 of 2 bottles . seen on gram stain of the broth Organism 1 STAPHYLOCOCCUS AUREUS TRIMETHOPRIM/SULFAMETHOXAZOLE <=10 S * 12/23/18 RIGHT FOOT CX: WOUND CULTURE Final Organism 1 STAPHYLOCOCCUS AUREUS QUANTITY SCANT GROWTH Organism 2 COAGULASE NEGATIVE STAPH QUANTITY SCANT GROWTH Organism 3 STREP AGALACTIAE - (GROUP B) QUANTITY SCANT GROWTH S AUREUS COAG NEG M.I.C. RX M.I.C. RX --------- --- --------- --- CEFAZOLIN S R CIPROFLOXACIN <=0.5 S >=8 R CLINDAMYCIN <=0.25 S >=8 R DOXYCYCLINE S R ERYTHROMYCIN <=0.25 S >=8 R LEVOFLOXACIN 0.25 S >=8 R OXACILLIN 0.5 S >=4 R PENICILLIN-G R >=0.5 R RIFAMPIN <=0.5 S <=0.5 S VANCOMYCIN 1 S 1 S TRIMETHOPRIM/SULFAMETHOXAZOLE <=10 S 160 R PHYSICAL EXAMINATION: GENERAL: VSS, NAD, obese M HEENT: AT, NC, anicteric, NECK: Supple, CHEST: Equal chest rise bilaterally, without dyspnea on observation HEART: Pulse RRR ABDOMEN: Soft / NT EXTREMITIES: Warm, dry / Bilateral Charcot foot deformity, right foot DSG C//D/I SKIN: No rash, no diaphoresis ID ASSESSMENT 43 yo M admit with: 1. Sepsis w/STAPH AUREUS bacteremia, leukocytosis, tachycardia => RESOLVED 2. Nonhealing right diabetic foot ulcer, failed outpatient antibiotics== Acute on chronic Right foot cellulitis w/wound * POD # 3=> 12/24/2018 1. Right foot incision and drainage.2. Bone biopsy fifth metatarsal.3. Local rotation with advancement flap closure. 4. Abduct or minimus digiti muscle flap. 5. Application of wound VAC. * POSTOPERATIVE DIAGNOSES:1. Right foot abscess.2. Right foot diabetic foot ulceration.3. Diabetes type 2, peripheral neuropathy.4. History of osteomyelitis fifth metatarsal.5. Charcot foot.6. Varus deformity, right foot.7. History of fifth metatarsal head resection. 3. Bilateral DM Charcot foot deformity 4. Hx of prior Left fifth toe amputation, triple arthrodesis, left foot. * Hx of DVT LLEXT -- resolved -- currently on Xarelto 5. 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 Hypertension 7. HLD 8. Acute renal insufficiency/CKD 9. Anemia of chronic disease 10. Hypothyroidism: Synthroid 11. Depression: Continue Cymbalta INVASIVES: PICC RUEXT CURRENT ABX: DAY # => Vanco IV + Ceftriaxone ID RECOMMENDATIONS/PLAN: 1. Patient will require MINIMUM 2 weeks IV antibiotics to treat bacteremia if he does not have osteomyelitis otherwise he will require longer treatment. * Anticipate Vanco IV x 2 weeks followed by PO Bactrim or Doxycycline x 2 weeks . Consultation Date/Type/Reason Admit Date/Time Dec 23, 2018 at 19:59 Initial Consult Date 12/25/18 Requesting Provider: AVERY HUSSEIN Date/Time of Note DATE: 12/27/18 TIME: 19:45 Exam/Review of Systems Exam Vitals Vital Signs Date Temp Pulse Resp B/P (MAP) Pulse Ox O2 O2 Flow FiO2 Time Delivery Rate 12/27/18 97.4 68 18 111/79 94 Room Air 14:00 (90) 12/24/18 8.0 21:21 Intake and Output 12/26/18 12/26/18 12/27/18 1515:00 23:00 07:00 IntakeIntake Total 600 ml 600 ml 250 ml OutputOutput Total 1650 ml 500 ml 1325 ml BalanceBalance -1050 ml 100 ml -1075 ml Results Result Diagram: 12/27/18 0457 12/27/18 0457 Results 24hrs Laboratory Tests Test 12/26/18 20:48 12/27/18 04:57 12/27/18 08:09 12/27/18 12:20 Bedside Glucose 176 157 169 White Blood Count 9.1 # Red Blood Count 4.71 Hemoglobin 11.4 L Hematocrit 37.2 L Mean Corpuscular Volume 79.0 L Mean Corpuscular 24.2 L Hemoglobin Mean Corpuscular 30.6 L Hemoglobin Concent Red Cell Distribution 15.8 H Width Platelet Count 108 #L Mean Platelet Volume Immature Granulocytes % 0.600 H Neutrophils % 69.8 Lymphocytes % 22.2 Monocytes % 6.9 Eosinophils % 0.2 Basophils % 0.3 Nucleated Red Blood 0.0 Cells % Immature Granulocytes # 0.050 H Neutrophils # 6.3 Lymphocytes # 2.0 Monocytes # 0.6 Eosinophils # 0.0 Basophils # 0.0 Nucleated Red Blood 0.0 Cells # Sodium Level 138 Potassium Level 3.9 Chloride Level 104 Carbon Dioxide Level 24 Anion Gap 10 Blood Urea Nitrogen 30 H Creatinine 1.01 Est Glomerular Filtrat > 60 Rate mL/min Glucose Level 147 # Calcium Level 8.8 Phosphorus Level 5.3 H Magnesium Level 1.8 Test 12/27/18 15:00 12/27/18 17:07 Bedside Glucose 176 133 Medications Medication Current Medications IV Flush (NS 3 ml) 3 ml PER PROTOCOL IV ; Start 12/24/18 at 02:00 Ondansetron HCl (Zofran Inj) 4 mg Q6H PRN IV NAUSEA/VOMITING; Start 12/24/18 at 02:00 Acetaminophen (Tylenol Tab) 650 mg Q6H PRN PO .PAIN 1-3 OR TEMP; Start 12/24/18 at 02:00 Acetaminophen/ Hydrocodone Bitart ([place] (5/325)) 1 tab Q6H PRN PO .MOD PAIN 4- 6 Last administered on 12/24/18at 07:29; Admin Dose 1 TAB; Start 12/24/18 at 02:00 Albuterol/ Ipratropium (Duoneb) 3 ml Q2H RESP THERAPY PRN HHN SHORTNESS OF BREATH; Start 12/24/18 at 02:00 Duloxetine HCl (Cymbalta) 60 mg DAILY PO Last administered on 12/27/18 08:27; Admin Dose 60 MG; Start 12/24/18 at 09:00 Levothyroxine Sodium (Synthroid) 50 mcg QAM PO Last administered on 12/27/18 08:27; Admin Dose 50 MCG; Start 12/24/18 at 09:00 Rivaroxaban (Xarelto) 20 mg WITH DINNER PO Last administered on 12/27/18at 17: 34; Admin Dose 20 MG; Start 12/24/18 at 17:35 Vancomycin HCl (Vanco Iv Per Pharmacy) VANCOMYCIN PER PHARMACY PER PROTOCOL XX ; Start 12/24/18 at 09:00 Diagnostic Test (Pha) (Accu-Chek) 1 ea 02 XX Last administered on 12/26/18at 01:52; Admin Dose 1 EA; Start 12/24/18 at 02:00 Insulin Aspart (Novolog Insulin Pen) NOVOLOG *MODERATE* ALGORITHM WITH MEALS BEDTIME SC Last administered on 12/27/18at 12:52; Admin Dose 2 UNIT; Start 12/24/18 at 07:35 Vancomycin/Sodium Chloride 250 ml @ 83.333 mls/ hr Q12H IVPB Last administered on 12/27/18at 19:05; Admin Dose 83.333 MLS/HR; Start 12/24/18 at 16:00 Miscellaneous Information 1 ea NOTE XX ; Start 12/24/18 at 03:30 Glucose (Glutose) 15 gm Q15M PRN PO DECREASED GLUCOSE; Start 12/24/18 at 03:30 Glucose (Glutose) 22.5 gm Q15M PRN PO DECREASED GLUCOSE; Start 12/24/18 at 03:30 Dextrose (D50w Syringe) 25 ml Q15M PRN IV DECREASED GLUCOSE; Start 12/24/18 at 03:30 Dextrose (D50w Syringe) 50 ml Q15M PRN IV DECREASED GLUCOSE; Start 12/24/18 at 03:30 Glucagon (Glucagen) 1 mg Q15M PRN IM DECREASED GLUCOSE; Start 12/24/18 at 03:30 Glucose (Glutose) 15 gm Q15M PRN BUCCAL DECREASED GLUCOSE; Start 12/24/18 at 03:30 Miscellaneous Information (Pending [facility] Order For Wound Care) This patient chambers... PRN PRN XX WOUND CARE; Start 12/24/18 at 05:30 Povidone Iodine (Povidone-Iodine) 1 applic BID TOP Last administered on 12/27/18 08:29; Admin Dose 1 APPLIC; Start 12/24/18 at 11:00 Zolpidem Tartrate (Ambien) 10 mg HS PRN PO INSOMNIA Last administered on 00:20; Admin Dose 10 MG; Start 12/24/18 at 09:30 Empaglifozin (Jardiance) 25 mg DAILY@08 PO Last administered on 12/27/18 08:28; Admin Dose 25 MG; Start 12/25/18 at 08:00 Lorazepam (Ativan) 1 mg HS PRN PO ANXIETY Last administered on 12/27/18 00:19; Admin Dose 1 MG; Start 12/25/18 at 00:30 Metformin HCl (Glucophage) 1,000 mg BID WITH MEALS PO Last administered on 12/27/18 17:34; Admin Dose 1,000 MG; Start 12/25/18 at 17:35 Ceftriaxone Sodium 50 ml @ 100 mls/hr Q24H IVPB Last administered on 12/27/18 15:55; Admin Dose 100 MLS/HR; Start 12/25/18 at 15:30 Miscellaneous Information (* Miscellaneous Pharmacy Order) 1 ea ONCE SC ; Start 12/26/18 at 14:00; Status UNV Docusate Sodium (Colace) 100 mg BID PO Last administered on 12/27/18 08:27; Admin Dose 100 MG; Start 12/26/18 at 13:30 Insulin Aspart (Novolog Insulin Pen) 24 unit WITH MEALS SC Last administered on 12/27/18 17:36; Admin Dose 24 UNIT; Start 12/26/18 at 17:35 Insulin Glargine (Lantus) 48 units HS SC Last administered on 12/26/18 20:50; Admin Dose 48 UNITS; Start 12/26/18 at 21:00 Miscellaneous Information (*Rx Drug Level Order Reminder*) [facility] TR 0300 ONCE XX ; Start 12/28/18 at 03:00; Stop 12/28/18 at 03:01 CAMILO GARCIA NP Dec 27, 2018 19:58
[2018-12-27 20:37] VITALS: BP 131/94; PULSE 109; RESP 17
[2018-12-27] MEDS: INSULIN GLARGINE [LANTus] (100 UNITS/ML) SYG SC SCH (21:04)
[2018-12-28] MEDS ORDERED: METHYLPREDNISOLONE 40 MG INJ IV ONE (00:30)
[2018-12-28] MEDS ORDERED: DIPHENHYDRAMINE 25 MG CAP PO ONE (00:30)
[2018-12-28] MEDS: LORAZEPAM 1 MG TAB PO PRN (00:46)
[2018-12-28 01:42] VITALS: BP 131/73; PULSE 93; RESP 18
[2018-12-28] MEDS: ZOLPIDEM 5 MG TAB PO PRN (01:44)
[2018-12-28] MEDS: ACCU-CHEK XX SCH (01:46)
[2018-12-28] MEDS: VANCOMYCIN 1.5 GM/NS 250 ML 250 ML IVPB SCH (04:00)
[2018-12-28 08:09] VITALS: BP 116/65; PULSE 91; RESP 18
[2018-12-28] MEDS: DULOXETINE 30 MG CAP DR PO SCH (08:41)
[2018-12-28] MEDS: LEVOTHYROXINE 50 MCG TAB PO SCH (08:41)
[2018-12-28] MEDS: metFORMIN 500 MG TAB PO SCH ×2 (08:41→17:16)
[2018-12-28] MEDS: EMPAGLIFLOZIN 10 MG TABLET PO SCH (08:42)
[2018-12-28] MEDS: DOCUSATE SODIUM 100 MG CAP PO SCH ×2 (08:42→20:55)
[2018-12-28] MEDS: INSULIN ASPART [NOVOLOG] 3 ML PEN SC SCH ×7 (08:48→20:58)
[2018-12-28] MEDS: POVIDONE IODINE 10% 28.4 GM OINT TOP SCH ×4 (08:50→21:00)
[2018-12-28] MEDS: VANCOMYCIN 1.25 GM/NS 250 ML 250 ML IVPB SCH ×2 (10:19→20:57)
[2018-12-28] MEDS ORDERED: LIDOCAINE 1% (MPF) 5 ML VIAL SC ONE (11:00)
--- NOTE | 2018-12-28 11:52 | PN ---
Date/Time of Note Date/Time of Note DATE: 12/28/18 TIME: 11:51 Objective Vitals Vital Signs Date Temp Pulse Resp B/P (MAP) Pulse Ox O2 O2 Flow FiO2 Time Delivery Rate 12/28/18 98.0 91 18 116/65 96 08:09 (82) 12/27/18 Room Air 14:00 12/24/18 8.0 21:21 Intake and Output 12/27/18 12/27/18 12/28/18 1515:00 23:00 07:00 IntakeIntake Total 200 ml 350 ml OutputOutput Total 800 ml 800 ml 1150 ml BalanceBalance -600 ml -450 ml -1150 ml Results Result Diagram: 12/28/18 0301 12/28/18 0301 Medications Medications Current Medications IV Flush (NS 3 ml) 3 ml PER PROTOCOL IV ; Start 12/24/18 at 02:00 Ondansetron HCl (Zofran Inj) 4 mg Q6H PRN IV NAUSEA/VOMITING; Start 12/24/18 at 02:00 Acetaminophen (Tylenol Tab) 650 mg Q6H PRN PO .PAIN 1-3 OR TEMP; Start 12/24/18 at 02:00 Acetaminophen/ Hydrocodone Bitart ([place] (5/325)) 1 tab Q6H PRN PO .MOD PAIN 4- 6 Last administered on 12/24/18at 07:29; Admin Dose 1 TAB; Start 12/24/18 at 02:00 Albuterol/ Ipratropium (Duoneb) 3 ml Q2H RESP THERAPY PRN HHN SHORTNESS OF BREATH; Start 12/24/18 at 02:00 Duloxetine HCl (Cymbalta) 60 mg DAILY PO Last administered on 12/28/18at 08:41; Admin Dose 60 MG; Start 12/24/18 at 09:00 Levothyroxine Sodium (Synthroid) 50 mcg QAM PO Last administered on 12/28/18at 08:41; Admin Dose 50 MCG; Start 12/24/18 at 09:00 Rivaroxaban (Xarelto) 20 mg WITH DINNER PO Last administered on 12/27/18at 17:34; Admin Dose 20 MG; Start 12/24/18 at 17:35 Vancomycin HCl (Vanco Iv Per Pharmacy) VANCOMYCIN PER PHARMACY PER PROTOCOL XX ; Start 12/24/18 at 09:00 Diagnostic Test (Pha) (Accu-Chek) 1 ea 02 XX Last administered on 12/26/18at 01:52; Admin Dose 1 EA; Start 12/24/18 at 02:00 Insulin Aspart (Novolog Insulin Pen) NOVOLOG *MODERATE* ALGORITHM WITH MEALS BEDTIME SC Last administered on 12/28/18at 08:49; Admin Dose 6 UNIT; Start at 07:35 Miscellaneous Information 1 ea NOTE XX ; Start 12/24/18 at 03:30 Glucose (Glutose) 15 gm Q15M PRN PO DECREASED GLUCOSE; Start 12/24/18 at 03:30 Glucose (Glutose) 22.5 gm Q15M PRN PO DECREASED GLUCOSE; Start 12/24/18 at 03:30 Dextrose (D50w Syringe) 25 ml Q15M PRN IV DECREASED GLUCOSE; Start 12/24/18 at 03:30 Dextrose (D50w Syringe) 50 ml Q15M PRN IV DECREASED GLUCOSE; Start 12/24/18 at 03:30 Glucagon (Glucagen) 1 mg Q15M PRN IM DECREASED GLUCOSE; Start 12/24/18 at 03:30 Glucose (Glutose) 15 gm Q15M PRN BUCCAL DECREASED GLUCOSE; Start 12/24/18 at 03:30 Miscellaneous Information (Pending [facility] Order For Wound Care) This patient chambers... PRN PRN XX WOUND CARE; Start 12/24/18 at 05:30 Povidone Iodine (Povidone-Iodine) 1 applic BID TOP Last administered on 12/27/18at 08:29; Admin Dose 1 APPLIC; Start 12/24/18 at 11:00 Zolpidem Tartrate (Ambien) 10 mg HS PRN PO INSOMNIA Last administered on 12/28/18at 01:44; Admin Dose 10 MG; Start 12/24/18 at 09:30 Empaglifozin (Jardiance) 25 mg DAILY@08 PO Last administered on 12/28/18at 08:42; Admin Dose 25 MG; Start 12/25/18 at 08:00 Lorazepam (Ativan) 1 mg HS PRN PO ANXIETY Last administered on 12/28/18at 00:46; Admin Dose 1 MG; Start 12/25/18 at 00:30 Metformin HCl (Glucophage) 1,000 mg BID WITH MEALS PO Last administered on 12/28/18 08:41; Admin Dose 1,000 MG; Start 12/25/18 at 17:35 Ceftriaxone Sodium 50 ml @ 100 mls/hr Q24H IVPB Last administered on 12/27/18 15:55; Admin Dose 100 MLS/HR; Start 12/25/18 at 15:30 Miscellaneous Information (* Miscellaneous Pharmacy Order) 1 ea ONCE SC ; Start 12/26/18 at 14:00; Status UNV Docusate Sodium (Colace) 100 mg BID PO Last administered on 12/27/18 08:27; Admin Dose 100 MG; Start 12/26/18 at 13:30 Insulin Aspart (Novolog Insulin Pen) 24 unit WITH MEALS SC Last administered on 12/28/18 08:48; Admin Dose 24 UNIT; Start 12/26/18 at 17:35 Insulin Glargine (Lantus) 48 units HS SC Last administered on 12/27/18 21:04; Admin Dose 48 UNITS; Start 12/26/18 at 21:00 Vancomycin/Sodium Chloride 250 ml @ 83.333 mls/ hr Q12H IVPB Last administered on 12/28/18 10:19; Admin Dose 83.333 MLS/HR; Start 12/28/18 at 09:00 VTE Prophylaxis Risk score (from Nsg)>0 risk: 7 SCD applied (from Nsg): No SCD contraindication: other Lines/Catheters IV Catheter Type: Simms in Place: No Assessment/Plan Hospital Course Subjective No acute complaints except for foot pain, patient doing well Objective Physical exam General: Patient is laying in bed and answers questions appropriately Mentation: Patient is alert and oriented 4, Head: Normocephalic atraumatic Eyes: EOMI, pupils reactive to light Neck: Supple, nontender, midline Respiratory: Clear to auscultation bilaterally Cardiovascular: regular rate, no obvious murmurs Gastrointestinal: non-tender to palpation, bowel sounds heard. Neurological: Moves all extremities spontaneously Skin: Right foot ulcer, bandaged, Assessment and plan Acute on chronic right diabetic foot ulcer -Status post debridement and skin flap, done December 24, 2018 -IV antibiotic, cultures pending -Infectious disease consulted -Podiatry consulted Sepsis -IV antibiotic -Cultures pending -Infectious disease recommendations appreciated Hypertension -Continue home meds Diabetes mellitus -Continue home meds, adjust insulin as needed Acute kidney injury -Resolved, patient resolved with IV fluid Hypothyroidism -Continue home medications History of depression -Continue Cymbalta Disposition -Pending cultures, patient will likely go home with IV antibiotics, but duration is still pending given bone biopsy results. osteo vs no osteo. AVERY HUSSEIN Dec 28, 2018 11:52
[2018-12-28 13:27] VITALS: BP 117/68; PULSE 98; RESP 18
--- NOTE | 2018-12-28 13:51 | CONS ---
Assessment/Plan Assessment/Plan Problems: (1) Tinea cruris Status: Acute Comment: Clotrimazole cream to area bid (2) Type 2 diabetes mellitus with hyperglycemia Status: Chronic Comment: Was euglycemic on current meds and insulin doses until last night when pt. c/o rash in groin and hospitalist ordered methylprednisolone. BG elevated this am, although already improving. As noted above, rash unlikely to respond to methylprednisolone so this should not be repeated. No need to alter current DM therapy. Will cont. this and expect BG to come back to goal range. 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 Qualified Codes: E11.65 - Type 2 diabetes mellitus with hyperglycemia; Z79.4 - USP (current) use of insulin Consultation Date/Type/Reason Admit Date/Time Dec 23, 2018 at 19:59 Initial Consult Date 12/25/18 Type of Consult Endocrinology Reason for Consultation T2DM management Requesting Provider: AVERY HUSSEIN Date/Time of Note DATE: 12/28/18 TIME: 13:48 24 HR Interval Summary Constitutional: no complaints, improved Detailed Summary Respiratory: no complaints Cardiovascular: no complaints Gastrointestinal: no complaints Genitourinary: no complaints Musculoskeletal: no complaints Skin: pruritis (B groin), rash (B groin) Neurologic: no complaints Exam/Review of Systems Exam Vitals VS - Last 72 Hours, by Label Date Temp Pulse Resp B/P (MAP) Pulse Ox O2 O2 Flow FiO2 Time Delivery Rate 12/28/18 97.6 98 18 117/68 99 13:27 (84) 12/28/18 98.0 91 18 116/65 96 08:09 (82) 12/28/18 98.1 93 18 131/73 99 01:42 (92) 12/27/18 98.7 109 17 131/94 99 20:37 (106) 12/27/18 97.4 68 18 111/79 94 Room Air 14:00 (90) 12/27/18 97.5 68 18 99/69 (79) 95 Room Air 07:48 12/27/18 97.8 97 18 96/57 (70) 93 02:00 12/26/18 97.8 88 18 101/55 98 20:03 (70) 12/26/18 98.0 102 18 104/69 96 Room Air 13:49 (81) 12/26/18 97.8 77 18 97/56 (70) 93 Room Air 08:04 12/26/18 97.6 74 18 97/59 (72) 98 Room Air 01:50 12/25/18 97.6 87 18 129/70 94 Room Air 20:00 (89) 12/25/18 97.8 90 18 99/55 (70) 95 14:00 Vital Signs Date Temp Pulse Resp B/P (MAP) Pulse Ox O2 O2 Flow FiO2 Time Delivery Rate 12/28/18 97.6 98 18 117/68 99 13:27 (84) 12/27/18 Room Air 14:00 12/24/18 8.0 21:21 Intake and Output 12/27/18 12/27/18 12/28/18 1515:00 23:00 07:00 IntakeIntake Total 200 ml 350 ml OutputOutput Total 800 ml 800 ml 1150 ml BalanceBalance -600 ml -450 ml -1150 ml Constitutional: alert, oriented, obese Respiratory: clear to auscultation, normal air movement Cardiovascular: regular rate and rhythm, nl pulses; No edema, No murmurs/extra sounds, No rub Gastrointestinal: soft, nl liver, spleen, non-tender, bowel sounds; No mass, No rebound or guarding Musculoskeletal: No nl extremities to inspection (RLE wrapped) Extremities: No cyanosis, No clubbing, No edema Neurological: 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 II-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, nl mental status, nl speech, nl strength Skin: rash or lesions (B groin scaley red rash) Additional Comments Bedside Glucose - 72 Hours Test 12/25/18 17:01 12/25/18 20:28 12/26/18 01:33 12/26/18 08:09 Bedside 219 251 199 230 Glucose mg/dL (70-220) mg/dL (70-220) mg/dL (70-220) mg/dL (70-220) H H Test 12/26/18 12:32 12/26/18 17:08 12/26/18 20:48 12/27/18 08:09 Bedside 202 118 176 157 Glucose mg/dL (70-220) mg/dL (70-220) mg/dL (70-220) mg/dL (70-220) Test 12/27/18 12:20 12/27/18 15:00 12/27/18 17:07 12/27/18 20:54 Bedside 169 176 133 176 Glucose mg/dL (70-220) mg/dL (70-220) mg/dL (70-220) mg/dL (70-220) Test 12/28/18 08:27 12/28/18 12:27 Bedside 230 201 Glucose mg/dL (70-220) mg/dL (70-220) H Results Result Diagram: 12/28/18 0301 12/28/18 0301 Results 24hrs Laboratory Tests Test 12/27/18 15:00 12/27/18 17:07 12/27/18 20:54 12/28/18 03:01 Bedside Glucose 176 133 176 White Blood Count 9.9 Red Blood Count 4.95 Hemoglobin 11.6 L Hematocrit 38.4 L Mean Corpuscular Volume 77.6 L Mean Corpuscular 23.4 L Hemoglobin Mean Corpuscular 30.2 L Hemoglobin Concent Red Cell Distribution 15.6 H Width Platelet Count 118 L Mean Platelet Volume Immature Granulocytes % 1.100 H Neutrophils % 83.6 H Lymphocytes % 11.3 L Monocytes % 3.6 Eosinophils % 0.1 Basophils % 0.3 Nucleated Red Blood 0.0 Cells % Immature Granulocytes # 0.110 H Neutrophils # 8.3 H Lymphocytes # 1.1 Monocytes # 0.4 Eosinophils # 0.0 Basophils # 0.0 Nucleated Red Blood 0.0 Cells # Sodium Level 137 Potassium Level 3.8 Chloride Level 103 Carbon Dioxide Level 24 Anion Gap 10 Blood Urea Nitrogen 28 H Creatinine 1.04 Est Glomerular Filtrat > 60 Rate mL/min Glucose Level 183 Calcium Level 8.9 Phosphorus Level 4.5 Magnesium Level 1.6 L Vancomycin Level Trough 22.1 *H Test 12/28/18 08:27 12/28/18 12:27 Bedside Glucose 230 H 201 Medications Medication Current Medications IV Flush (NS 3 ml) 3 ml PER PROTOCOL IV ; Start 12/24/18 at 02:00 Ondansetron HCl (Zofran Inj) 4 mg Q6H PRN IV NAUSEA/VOMITING; Start 12/24/18 at 02:00 Acetaminophen (Tylenol Tab) 650 mg Q6H PRN PO .PAIN 1-3 OR TEMP; Start 12/24/18 at 02:00 Acetaminophen/ Hydrocodone Bitart ([place] (5/325)) 1 tab Q6H PRN PO .MOD PAIN 4- 6 Last administered on 12/24/18at 07:29; Admin Dose 1 TAB; Start 12/24/18 at 02:00 Albuterol/ Ipratropium (Duoneb) 3 ml Q2H RESP THERAPY PRN HHN SHORTNESS OF BREATH; Start 12/24/18 at 02:00 Duloxetine HCl (Cymbalta) 60 mg DAILY PO Last administered on 12/28/18at 08:41; Admin Dose 60 MG; Start 12/24/18 at 09:00 Levothyroxine Sodium (Synthroid) 50 mcg QAM PO Last administered on 12/28/18at 08:41; Admin Dose 50 MCG; Start 12/24/18 at 09:00 Rivaroxaban (Xarelto) 20 mg WITH DINNER PO Last administered on 12/27/18at 17:34; Admin Dose 20 MG; Start 12/24/18 at 17:35 Vancomycin HCl (Vanco Iv Per Pharmacy) VANCOMYCIN PER PHARMACY PER PROTOCOL XX ; Start 12/24/18 at 09:00 Diagnostic Test (Pha) (Accu-Chek) 1 ea 02 XX Last administered on 12/26/18at 01:52; Admin Dose 1 EA; Start 12/24/18 at 02:00 Insulin Aspart (Novolog Insulin Pen) NOVOLOG *MODERATE* ALGORITHM WITH MEALS BEDTIME SC Last administered on 12/28/18at 12:40; Admin Dose 4 UNIT; Start 12/24/18 at 07:35 Miscellaneous Information 1 ea NOTE XX ; Start 12/24/18 at 03:30 Glucose (Glutose) 15 gm Q15M PRN PO DECREASED GLUCOSE; Start 12/24/18 at 03:30 Glucose (Glutose) 22.5 gm Q15M PRN PO DECREASED GLUCOSE; Start 12/24/18 at 03:30 Dextrose (D50w Syringe) 25 ml Q15M PRN IV DECREASED GLUCOSE; Start 12/24/18 at 03:30 Dextrose (D50w Syringe) 50 ml Q15M PRN IV DECREASED GLUCOSE; Start 12/24/18 at 03:30 Glucagon (Glucagen) 1 mg Q15M PRN IM DECREASED GLUCOSE; Start 12/24/18 at 03:30 Glucose (Glutose) 15 gm Q15M PRN BUCCAL DECREASED GLUCOSE; Start 12/24/18 at 03:30 Miscellaneous Information (Pending [facility] Order For Wound Care) This patient chambers... PRN PRN XX WOUND CARE; Start 12/24/18 at 05:30 Povidone Iodine (Povidone-Iodine) 1 applic BID TOP Last administered on 12/27/18 08:29; Admin Dose 1 APPLIC; Start 12/24/18 at 11:00 Zolpidem Tartrate (Ambien) 10 mg HS PRN PO INSOMNIA Last administered on 12/28/18 01:44; Admin Dose 10 MG; Start 12/24/18 at 09:30 Empaglifozin (Jardiance) 25 mg DAILY@08 PO Last administered on 12/28/18 08:42; Admin Dose 25 MG; Start 12/25/18 at 08:00 Lorazepam (Ativan) 1 mg HS PRN PO ANXIETY Last administered on 12/28/18 00:46; Admin Dose 1 MG; Start 12/25/18 at 00:30 Metformin HCl (Glucophage) 1,000 mg BID WITH MEALS PO Last administered on 12/28/18 08:41; Admin Dose 1,000 MG; Start 12/25/18 at 17:35 Ceftriaxone Sodium 50 ml @ 100 mls/hr Q24H IVPB Last administered on 12/27/18 15:55; Admin Dose 100 MLS/HR; Start 12/25/18 at 15:30 Miscellaneous Information (* Miscellaneous Pharmacy Order) 1 ea ONCE SC ; Start 12/26/18 at 14:00; Status UNV Docusate Sodium (Colace) 100 mg BID PO Last administered on 12/27/18 08:27; Admin Dose 100 MG; Start 12/26/18 at 13:30 Insulin Aspart (Novolog Insulin Pen) 24 unit WITH MEALS SC Last administered on 12/28/18 12:41; Admin Dose 24 UNIT; Start 12/26/18 at 17:35 Insulin Glargine (Lantus) 48 units HS SC Last administered on 12/27/18 21:04; Admin Dose 48 UNITS; Start 12/26/18 at 21:00 Vancomycin/Sodium Chloride 250 ml @ 83.333 mls/ hr Q12H IVPB Last administered on 12/28/18 10:19; Admin Dose 83.333 MLS/HR; Start 12/28/18 at 09:00 Magnesium Sulfate 50 ml @ 25 mls/hr ONCE ONCE IVPB ; Start 12/28/18 at 14:00; Stop 12/28/18 at 15:59; Status MICHAEL TORRES MD Dec 28, 2018 13:51
[2018-12-28] MEDS ORDERED: MAGNESIUM SULFATE 2 GM/50 ML 50 ML IVPB ONE (14:00)
--- NOTE | 2018-12-28 14:13 | CONS ---
DATE OF ADMISSION: 12/23/2018 DATE OF CONSULTATION: 12/28/2018 SUBJECTIVE FINDINGS: The patient is status post right foot surgery. The patient with positive cultu res with Staphylococcus aureus, currently on vancomycin and ceftriaxone. The patient denies any feve r, nausea, vomiting. OBJECTIVE FINDINGS: VITAL SIGNS: Temperature 98, pulse is 91, respiratory rate 18, blood pressure is 116/65, pulse ox is 96%. GENERAL: The patient is alert, oriented, no acute distress. EXTREMITIES: Right lower extremity with a posterior splint. No signs of drainage, no malodor. Cap refill to toes immediate. LABORATORIES: WBC 9.9, hemoglobin 11.6, hematocrit 38.4, platelets 118. Sodium 137, potassium 3.8, chloride 103, CO2 24, BUN 28, creatinine 1.04. Cultures Staphylococcus aureus, coagulase-negative St aphylococcus. PATHOLOGY: Bone results pending. Blood cultures no growth. ASSESSMENT: 1. Right foot, status post incision and drainage with wound closure. 2. Suspicion for osteomyelitis. Bone biopsy pending. 3. Staphylococcus aureus infection. 4. Charcot deformity. 5. Diabetes with peripheral neuropathy, diabetes type 2. PLAN: PICC line ordered. Appreciate ID recommendations. We will need 2 weeks' antibiotics for bact eremia and possibly longer for osteomyelitis. Continue nonweightbearing status of the right foot. Dictated By: JOSÉ DE LA GARZA DPM RB/MO Conf#: [id number] DID#: [id number] CC: NELY CAAL MD;*EndCC*
--- NOTE | 2018-12-28 16:01 | CONS ---
Assessment/Plan Assessment/Plan Hospital Course (Demo Recall) ID PROGRESS NOTE CURRENT ABX: DAY # => Vanco IV + Ceftriaxone POD # 4=>DATE OF OPERATION: 12/24/2018 * PROCEDURES PERFORMED: 1. Right foot incision and drainage.2. Bone biopsy fifth metatarsal.3. Local rotation with advancement flap closure. 4. Abductor minimus digiti muscle flap. 5. Application of wound VAC. 24H INTERVAL SUMMARY * PATIENT WANT TO DC HOME TODAY ON VANCO IV X 6 WEEKS -- PICC LINE PLACED * Seen by DPM today who noted suspicion for osteomyelitis post op remains -- awaiting bone biopsy results * Resting in bed, VSS, NAD, no fevers DIAGNOSTIC IMAGING * 12/23/18 CXR: No acute cardiopulmonary disease. Questionable small lucent lesion in the lateral portion of the left scapula versus artifact. MICRO/OTHER * 12/24/18 BCX (-) * 12/24/18 WOUND CX: WOUND CULTURE Final Organism 1 STAPHYLOCOCCUS AUREUS QUANTITY RARE Organism 2 COAGULASE NEGATIVE STAPH QUANTITY RARE * 12/23/18 BCx (+) BLOOD CULTURE Final BCULT GRAM BOTTLE 1 Gram positive cocci in clusters 1 of 2 bottles . seen on gram stain of the broth Organism 1 STAPHYLOCOCCUS AUREUS TRIMETHOPRIM/SULFAMETHOXAZOLE <=10 S * 12/23/18 RIGHT FOOT CX: WOUND CULTURE Final Organism 1 STAPHYLOCOCCUS AUREUS QUANTITY SCANT GROWTH Organism 2 COAGULASE NEGATIVE STAPH QUANTITY SCANT GROWTH Organism 3 STREP AGALACTIAE - (GROUP B) QUANTITY SCANT GROWTH S AUREUS COAG NEG M.I.C. RX M.I.C. RX --------- --- --------- --- CEFAZOLIN S R CIPROFLOXACIN <=0.5 S >=8 R CLINDAMYCIN <=0.25 S >=8 R DOXYCYCLINE S R ERYTHROMYCIN <=0.25 S >=8 R LEVOFLOXACIN 0.25 S >=8 R OXACILLIN 0.5 S >=4 R PENICILLIN-G R >=0.5 R RIFAMPIN <=0.5 S <=0.5 S VANCOMYCIN 1 S 1 S TRIMETHOPRIM/SULFAMETHOXAZOLE <=10 S 160 R PHYSICAL EXAMINATION: GENERAL: VSS, NAD, obese M HEENT: AT, NC, anicteric, NECK: Supple, CHEST: Equal chest rise bilaterally, without dyspnea on observation HEART: Pulse RRR ABDOMEN: Soft / NT EXTREMITIES: Warm, dry / Bilateral Charcot foot deformity, right foot DSG C//D/I SKIN: No rash, no diaphoresis ID ASSESSMENT 43 yo M admit with: 1. Sepsis w/STAPH AUREUS bacteremia, leukocytosis, tachycardia => RESOLVED 2. Nonhealing right diabetic foot ulcer, failed outpatient antibiotics== Acute on chronic Right foot cellulitis w/wound * POD #4=> 12/24/2018 1. Right foot incision and drainage.2. Bone biopsy fifth metatarsal.3. Local rotation with advancement flap closure. 4. Abductor minimus digiti muscle flap. 5. Application of wound VAC. * POSTOPERATIVE DIAGNOSES:1. Right foot abscess.2. Right foot diabetic foot ulceration.3. Diabetes type 2, peripheral neuropathy.4. History of osteomyelitis fifth metatarsal.5. Charcot foot.6. Varus deformity, right foot.7. History of fifth metatarsal head resection. 3. Bilateral DM Charcot foot deformity 4. Hx of prior Left fifth toe amputation, triple arthrodesis, left foot. * Hx of DVT LLEXT -- resolved -- currently on Xarelto 5. 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 Hypertension 7. HLD 8. Acute renal insufficiency/CKD 9. Anemia of chronic disease 10. Hypothyroidism: Synthroid 11. Depression: Continue Cymbalta INVASIVES: PICC RUEXT CURRENT ABX: DAY # => Vanco IV + Ceftriaxone ID RECOMMENDATIONS/PLAN: 1. PATIENT WANT TO DC HOME TODAY ON VANCO IV X 6 WEEKS -- PICC LINE PLACED * Per DPM notes, suspicion for osteomyelitis remains * BMI of > 50 == needs higher dose of Ceftriaxone + Vanco for high risk DM foot infection 2. Patient requesting I write DC ABX orders which I have done == CASE MANAGEMENT CONSULT PLACED TODAY BELOW: WHEN CLEARED FOR DC HOME BY PRIMARY PATIENT MAY DC HOME ON 1. CEFTRIAXONE 2GM IV DAILY X 42 DAYS 2. Vanco IV dose per outpatient pharmacy x 42 days == Follow up with Dr. Fields in 2 weeks == Follow up with Dr. Sullivan in 2 weeks . . Consultation Date/Type/Reason Admit Date/Time Dec 23, 2018 at 19:59 Initial Consult Date 12/25/18 Requesting Provider: AVERY HUSSEIN Date/Time of Note DATE: 12/28/18 TIME: 15:59 Exam/Review of Systems Exam Vitals Vital Signs Date Temp Pulse Resp B/P (MAP) Pulse Ox O2 O2 Flow FiO2 Time Delivery Rate 12/28/18 97.6 98 18 117/68 99 13:27 (84) 12/27/18 Room Air 14:00 12/24/18 8.0 21:21 Intake and Output 12/27/18 12/27/18 12/28/18 1515:00 23:00 07:00 IntakeIntake Total 200 ml 350 ml OutputOutput Total 800 ml 800 ml 1150 ml BalanceBalance -600 ml -450 ml -1150 ml Results Result Diagram: 12/28/18 0301 12/28/18 0301 Results 24hrs Laboratory Tests Test 12/27/18 17:07 12/27/18 20:54 12/28/18 03:01 12/28/18 08:27 Bedside Glucose 133 176 230 H White Blood Count 9.9 Red Blood Count 4.95 Hemoglobin 11.6 L Hematocrit 38.4 L Mean Corpuscular Volume 77.6 L Mean Corpuscular 23.4 L Hemoglobin Mean Corpuscular 30.2 L Hemoglobin Concent Red Cell Distribution 15.6 H Width Platelet Count 118 L Mean Platelet Volume Immature Granulocytes % 1.100 H Neutrophils % 83.6 H Lymphocytes % 11.3 L Monocytes % 3.6 Eosinophils % 0.1 Basophils % 0.3 Nucleated Red Blood 0.0 Cells % Immature Granulocytes # 0.110 H Neutrophils # 8.3 H Lymphocytes # 1.1 Monocytes # 0.4 Eosinophils # 0.0 Basophils # 0.0 Nucleated Red Blood 0.0 Cells # Sodium Level 137 Potassium Level 3.8 Chloride Level 103 Carbon Dioxide Level 24 Anion Gap 10 Blood Urea Nitrogen 28 H Creatinine 1.04 Est Glomerular Filtrat > 60 Rate mL/min Glucose Level 183 Calcium Level 8.9 Phosphorus Level 4.5 Magnesium Level 1.6 L Vancomycin Level Trough 22.1 *H Test 12/28/18 12:27 Bedside Glucose 201 Medications Medication Current Medications IV Flush (NS 3 ml) 3 ml PER PROTOCOL IV ; Start 12/24/18 at 02:00 Ondansetron HCl (Zofran Inj) 4 mg Q6H PRN IV NAUSEA/VOMITING; Start 12/24/18 at 02:00 Acetaminophen (Tylenol Tab) 650 mg Q6H PRN PO .PAIN 1-3 OR TEMP; Start 12/24/18 at 02:00 Acetaminophen/ Hydrocodone Bitart ([place] (5/325)) 1 tab Q6H PRN PO .MOD PAIN 4- 6 Last administered on 12/24/18at 07:29; Admin Dose 1 TAB; Start 12/24/18 at 02:00 Albuterol/ Ipratropium (Duoneb) 3 ml Q2H RESP THERAPY PRN HHN SHORTNESS OF BREATH; Start 12/24/18 at 02:00 Duloxetine HCl (Cymbalta) 60 mg DAILY PO Last administered on 12/28/18at 08:41; Admin Dose 60 MG; Start 12/24/18 at 09:00 Levothyroxine Sodium (Synthroid) 50 mcg QAM PO Last administered on 12/28/18at 08:41; Admin Dose 50 MCG; Start 12/24/18 at 09:00 Rivaroxaban (Xarelto) 20 mg WITH DINNER PO Last administered on 12/27/18at 17:34; Admin Dose 20 MG; Start 12/24/18 at 17:35 Vancomycin HCl (Vanco Iv Per Pharmacy) VANCOMYCIN PER PHARMACY PER PROTOCOL XX ; Start 12/24/18 at 09:00 Diagnostic Test (Pha) (Accu-Chek) 1 ea 02 XX Last administered on 12/26/18at 01:52; Admin Dose 1 EA; Start 12/24/18 at 02:00 Insulin Aspart (Novolog Insulin Pen) NOVOLOG *MODERATE* ALGORITHM WITH MEALS BEDTIME SC Last administered on 12/28/18at 12:40; Admin Dose 4 UNIT; Start 12/24/18 at 07:35 Miscellaneous Information 1 ea NOTE XX ; Start 12/24/18 at 03:30 Glucose (Glutose) 15 gm Q15M PRN PO DECREASED GLUCOSE; Start 12/24/18 at 03:30 Glucose (Glutose) 22.5 gm Q15M PRN PO DECREASED GLUCOSE; Start 12/24/18 at 03:30 Dextrose (D50w Syringe) 25 ml Q15M PRN IV DECREASED GLUCOSE; Start 12/24/18 at 03:30 Dextrose (D50w Syringe) 50 ml Q15M PRN IV DECREASED GLUCOSE; Start 12/24/18 at 03:30 Glucagon (Glucagen) 1 mg Q15M PRN IM DECREASED GLUCOSE; Start 12/24/18 at 03:30 Glucose (Glutose) 15 gm Q15M PRN BUCCAL DECREASED GLUCOSE; Start 12/24/18 at 03:30 Miscellaneous Information (Pending [facility] Order For Wound Care) This patient chambers... PRN PRN XX WOUND CARE; Start 12/24/18 at 05:30 Povidone Iodine (Povidone-Iodine) 1 applic BID TOP Last administered on 12/27 08:29; Admin Dose 1 APPLIC; Start 12/24/18 at 11:00 Zolpidem Tartrate (Ambien) 10 mg HS PRN PO INSOMNIA Last administered on 12/28/18 01:44; Admin Dose 10 MG; Start 12/24/18 at 09:30 Empaglifozin (Jardiance) 25 mg DAILY@08 PO Last administered on 12/28/18 08:42; Admin Dose 25 MG; Start 12/25/18 at 08:00 Lorazepam (Ativan) 1 mg HS PRN PO ANXIETY Last administered on 12/28/18 00:46; Admin Dose 1 MG; Start 12/25/18 at 00:30 Metformin HCl (Glucophage) 1,000 mg BID WITH MEALS PO Last administered on 12/28/18 08:41; Admin Dose 1,000 MG; Start 12/25/18 at 17:35 Ceftriaxone Sodium 50 ml @ 100 mls/hr Q24H IVPB Last administered on 12/27/18 15:55; Admin Dose 100 MLS/HR; Start 12/25/18 at 15:30 Miscellaneous Information (* Miscellaneous Pharmacy Order) 1 ea ONCE SC ; Start 12/26/18 at 14:00; Status UNV Docusate Sodium (Colace) 100 mg BID PO Last administered on 12/27/18 08:27; Admin Dose 100 MG; Start 12/26/18 at 13:30 Insulin Aspart (Novolog Insulin Pen) 24 unit WITH MEALS SC Last administered on 12/28/18 12:41; Admin Dose 24 UNIT; Start 12/26/18 at 17:35 Insulin Glargine (Lantus) 48 units HS SC Last administered on 12/27/18at 21:04; Admin Dose 48 UNITS; Start 12/26/18 at 21:00 Vancomycin/Sodium Chloride 250 ml @ 83.333 mls/ hr Q12H IVPB Last administered on 12/28/18at 10:19; Admin Dose 83.333 MLS/HR; Start 12/28/18 at 09:00 Clotrimazole (Lotrimin Cr) 1 applic BID TOP ; Start 12/28/18 at 14:00 CAMILO GARCIA NP Dec 28, 2018 16:01
[2018-12-28] MEDS ORDERED: CEFTRIAXONE 1 GM/50 ML (PMX) 50 ML IVPB SCH (16:38)
[2018-12-28] MEDS: CLOTRIMAZOLE 1% 30 GM CR TOP SCH ×2 (16:38→21:01)
[2018-12-28] MEDS: RIVAROXABAN 20 MG TABLET PO SCH (17:15)
[2018-12-28] MEDS: INSULIN GLARGINE [LANTus] (100 UNITS/ML) SYG SC SCH (20:59)
[2018-12-29] MEDS: ZOLPIDEM 5 MG TAB PO PRN (00:20)
[2018-12-29] MEDS: LORAZEPAM 1 MG TAB PO PRN (00:21)
[2018-12-29] MEDS: ACCU-CHEK XX SCH (02:00)
[2018-12-29 02:14] VITALS: BP 101/63; PULSE 76; RESP 17
[2018-12-29] MEDS: INSULIN ASPART [NOVOLOG] 3 ML PEN SC SCH ×7 (07:35→20:02)
[2018-12-29 08:04] VITALS: BP 115/73; PULSE 76; RESP 18
[2018-12-29] MEDS: POVIDONE IODINE 10% 28.4 GM OINT TOP SCH ×2 (08:47→20:02)
[2018-12-29] MEDS: DOCUSATE SODIUM 100 MG CAP PO SCH ×2 (08:47→20:02)
[2018-12-29] MEDS: DULOXETINE 30 MG CAP DR PO SCH (08:54)
[2018-12-29] MEDS: LEVOTHYROXINE 50 MCG TAB PO SCH (08:54)
[2018-12-29] MEDS: metFORMIN 500 MG TAB PO SCH ×2 (08:54→17:26)
[2018-12-29] MEDS: EMPAGLIFLOZIN 10 MG TABLET PO SCH (08:54)
[2018-12-29] MEDS: CLOTRIMAZOLE 1% 30 GM CR TOP SCH ×2 (08:55→20:02)
[2018-12-29] MEDS: VANCOMYCIN 1.25 GM/NS 250 ML 250 ML IVPB SCH ×2 (08:55→20:01)
[2018-12-29] MEDS ORDERED: DIPHENHYDRAMINE 50 MG INJ IV PRN (09:00)
--- NOTE | 2018-12-29 12:30 | PN ---
Date/Time of Note Date/Time of Note DATE: 12/29/18 TIME: 12:21 Assessment/Plan VTE Prophylaxis Risk score (from Ns)>0 risk: 11 SCD applied (from Ns): No SCD contraindicated: low risk/ambulating Pharmacological prophylaxis: NA/contraindicated Pharm contraindication: low risk/ambulating Lines/Catheters [facility] P[facility] Line Central line still needed: Yes Urinary Cath still in place: No Assessment/Plan Assessment/Plan 1. Acute on chronic right diabetic foot ulcer - s/p debridement and skin flap 12/24 - Podiatry consultation appreciated and will need to continue follow up as outpatient - ID on board and awaiting bx results to determine length of antibiotic tx. CM consulted for IV antibiotics 2. Sepsis- resolved - secondary to #1 - elevated WBC from Solumedrol given overnight but neutrophils are nl so not a sign of worsening 3. Hypertension - Continue home 4. Diabetes mellitus - Endocrinology on board and appreciate recommendations - A1c noted - continue current regime 5. MARTA - resolved 6. Hypothyroidism - Continue home medications 7. History of depression - Continue Cymbalta 8. Disposition - Once CM finalizes arrangements HH for IV antibiotics, will d/c home. Discuss ed with patient no need to wait for pathology since able to follow up with Podiatry this week to determine length of antibiotics. Result Diagram: 12/29/18 0424 12/29/18 0424 Results 24hrs Laboratory Tests Test 12/28/18 12:27 12/28/18 17:04 12/28/18 20:57 12/29/18 04:24 Bedside Glucose 201 136 136 White Blood Count 13.6 #H Red Blood Count 4.97 Hemoglobin 11.9 L Hematocrit 39.1 L Mean Corpuscular Volume 78.7 L Mean Corpuscular 23.9 L Hemoglobin Mean Corpuscular 30.4 L Hemoglobin Concent Red Cell Distribution 15.7 H Width Platelet Count 133 L Mean Platelet Volume Immature Granulocytes % 1.300 H Neutrophils % 71.9 Lymphocytes % 21.0 Monocytes % 5.6 Eosinophils % 0.1 Basophils % 0.1 Nucleated Red Blood 0.0 Cells % Immature Granulocytes # 0.180 H Neutrophils # 9.8 H Lymphocytes # 2.9 Monocytes # 0.8 Eosinophils # 0.0 Basophils # 0.0 Nucleated Red Blood 0.0 Cells # Sodium Level 139 Potassium Level 3.8 Chloride Level 104 Carbon Dioxide Level 25 Anion Gap 10 Blood Urea Nitrogen 26 H Creatinine 1.07 Est Glomerular Filtrat > 60 Rate mL/min Glucose Level 118 # Calcium Level 9.1 Phosphorus Level 5.1 H Magnesium Level 2.1 Test 12/29/18 06:51 12/29/18 08:46 Bedside Glucose 122 131 Subjective 24 Hr Interval Summary Free Text/Dictation Patient complaining of itching at site of PICC insertion. Also states the groin area is improving with the cream. Exam/Review of Systems Exam Vitals Vital Signs Date Temp Pulse Resp B/P (MAP) Pulse Ox O2 O2 Flow FiO2 Time Delivery Rate 12/29/18 97.5 76 18 115/73 97 08:04 (87) 12/27/18 Room Air 14:00 Intake and Output 12/28/18 12/28/18 12/29/18 1515:00 23:00 07:00 IntakeIntake Total 1210 ml 500 ml 250 ml OutputOutput Total 1700 ml BalanceBalance -490 ml 500 ml 250 ml Exam General: Patient is laying in bed and answers questions appropriately Head: Normocephalic atraumatic Neck: Supple, nontender, midline Respiratory: Clear to auscultation bilaterally. no wheezing or rhonchi Cardiovascular: S1, S2, regular rate and rhythm, no obvious murmurs Gastrointestinal: soft, non-tender to palpation, bowel sounds heard. Ext: Moves all extremities spontaneously Skin: Right foot ulcer, bandaged, Results Results 24hrs Laboratory Tests Test 12/28/18 12:27 12/28/18 17:04 12/28/18 20:57 12/29/18 04:24 Bedside Glucose 201 136 136 White Blood Count 13.6 #H Red Blood Count 4.97 Hemoglobin 11.9 L Hematocrit 39.1 L Mean Corpuscular Volume 78.7 L Mean Corpuscular 23.9 L Hemoglobin Mean Corpuscular 30.4 L Hemoglobin Concent Red Cell Distribution 15.7 H Width Platelet Count 133 L Mean Platelet Volume Immature Granulocytes % 1.300 H Neutrophils % 71.9 Lymphocytes % 21.0 Monocytes % 5.6 Eosinophils % 0.1 Basophils % 0.1 Nucleated Red Blood 0.0 Cells % Immature Granulocytes # 0.180 H Neutrophils # 9.8 H Lymphocytes # 2.9 Monocytes # 0.8 Eosinophils # 0.0 Basophils # 0.0 Nucleated Red Blood 0.0 Cells # Sodium Level 139 Potassium Level 3.8 Chloride Level 104 Carbon Dioxide Level 25 Anion Gap 10 Blood Urea Nitrogen 26 H Creatinine 1.07 Est Glomerular Filtrat > 60 Rate mL/min Glucose Level 118 # Calcium Level 9.1 Phosphorus Level 5.1 H Magnesium Level 2.1 Test 12/29/18 06:51 12/29/18 08:46 Bedside Glucose 122 131 Medications Medication Current Medications IV Flush (NS 3 ml) 3 ml PER PROTOCOL IV ; Start 12/24/18 at 02:00 Ondansetron HCl (Zofran Inj) 4 mg Q6H PRN IV NAUSEA/VOMITING; Start 12/24/18 at 02:00 Acetaminophen (Tylenol Tab) 650 mg Q6H PRN PO .PAIN 1-3 OR TEMP; Start 12/24/18 at 02:00 Acetaminophen/ Hydrocodone Bitart ([place] (5/325)) 1 tab Q6H PRN PO .MOD PAIN 4- 6 Last administered on 12/24/18at 07:29; Admin Dose 1 TAB; Start 12/24/18 at 02:00 Albuterol/ Ipratropium (Duoneb) 3 ml Q2H RESP THERAPY PRN HHN SHORTNESS OF BREATH; Start 12/24/18 at 02:00 Duloxetine HCl (Cymbalta) 60 mg DAILY PO Last administered on 12/29/18at 08:54; Admin Dose 60 MG; Start 12/24/18 at 09:00 Levothyroxine Sodium (Synthroid) 50 mcg QAM PO Last administered on 12/29/18at 08:54; Admin Dose 50 MCG; Start 12/24/18 at 09:00 Rivaroxaban (Xarelto) 20 mg WITH DINNER PO Last administered on 12/28/18at 1 7:15; Admin Dose 20 MG; Start 12/24/18 at 17:35 Vancomycin HCl (Vanco Iv Per Pharmacy) VANCOMYCIN PER PHARMACY PER PROTOCOL XX ; Start 12/24/18 at 09:00 Diagnostic Test (Pha) (Accu-Chek) 1 ea XX Last administered on 12/26/18at 01:52; Admin Dose 1 EA; Start 12/24/18 at 02:00 Insulin Aspart (Novolog Insulin Pen) NOVOLOG *MODERATE* ALGORITHM WITH MEALS BEDTIME SC Last administered on 12/28/18at 12:40; Admin Dose 4 UNIT; Start 12/24/18 at 07:35 Miscellaneous Information 1 ea NOTE XX ; Start 12/24/18 at 03:30 Glucose (Glutose) 15 gm Q15M PRN PO DECREASED GLUCOSE; Start 12/24/18 at 03:30 Glucose (Glutose) 22.5 gm Q15M PRN PO DECREASED GLUCOSE; Start 12/24/18 at 03:30 Dextrose (D50w Syringe) 25 ml Q15M PRN IV DECREASED GLUCOSE; Start 12/24/18 at 03:30 Dextrose (D50w Syringe) 50 ml Q15M PRN IV DECREASED GLUCOSE; Start 12/24/18 at 03:30 Glucagon (Glucagen) 1 mg Q15M PRN IM DECREASED GLUCOSE; Start 12/24/18 at 03:30 Glucose (Glutose) 15 gm Q15M PRN BUCCAL DECREASED GLUCOSE; Start 12/24/18 at 03:30 Miscellaneous Information (Pending [facility] Order For Wound Care) This patient chambers... PRN PRN XX WOUND CARE; Start 12/24/18 at 05:30 Povidone Iodine (Povidone-Iodine) 1 applic BID TOP Last administered on 12/28/18at 21:00; Admin Dose 1 APPLIC; Start 12/24/18 at 11:00 Zolpidem Tartrate (Ambien) 10 mg HS PRN PO INSOMNIA Last administered on 12/29/18at 00:20; Admin Dose 10 MG; Start 12/24/18 at 09:30 Empaglifozin (Jardiance) 25 mg DAILY@08 PO Last administered on 12/29/18at 08:54; Admin Dose 25 MG; Start 12/25/18 at 08:00 Lorazepam (Ativan) 1 mg HS PRN PO ANXIETY Last administered on 12/29/18at 00:21; Admin Dose 1 MG; Start 12/25/18 at 00:30 Metformin HCl (Glucophage) 1,000 mg BID WITH MEALS PO Last administered on 12/29/18at 08:54; Admin Dose 1,000 MG; Start 12/25/18 at 17:35 Miscellaneous Information (* Miscellaneous Pharmacy Order) 1 ea ONCE SC ; Start 12/26/18 at 14:00; Status UNV Docusate Sodium (Colace) 100 mg BID PO Last administered on 12/27/18 08:27; Admin Dose 100 MG; Start 12/26/18 at 13:30 Insulin Aspart (Novolog Insulin Pen) 24 unit WITH MEALS SC Last administered on 12/29/18 08:53; Admin Dose 24 UNIT; Start 12/26/18 at 17:35 Insulin Glargine (Lantus) 48 units HS SC Last administered on 12/28/18 20:59; Admin Dose 48 UNITS; Start 12/26/18 at 21:00 Vancomycin/Sodium Chloride 250 ml @ 83.333 mls/ hr Q12H IVPB Last administered on 12/29/18 08:55; Admin Dose 83.333 MLS/HR; Start 12/28/18 at 09:00 Clotrimazole (Lotrimin Cr) 1 applic BID TOP Last administered on 12/29/18 08:55; Admin Dose 1 APPLIC; Start 12/28/18 at 14:00 Ceftriaxone Sodium 100 ml @ 100 mls/hr Q24H IVPB ; Start 12/29/18 at 15:30; Stop 02/07/19 at 15:29 IV Flush (NS 10 ml) 10 ml Q8 PRN IV IV PROTOCOL; Start 12/28/18 at 17:00 Miscellaneous Information (*Rx Drug Level Order Reminder*) VANCOMYCIN TROUGH 12/30 AT 0800 0800 ONCE XX ; Start 12/30/18 at 08:00; Stop 12/30/18 at 08:01 Diphenhydramine HCl (Benadryl) 50 mg Q4H PRN IV pruritus; Start 12/29/18 at 13:00 JR FALCON MD Dec 29, 2018 12:30
[2018-12-29] MEDS: DIPHENHYDRAMINE 50 MG INJ IV PRN ×2 (13:09→18:23)
[2018-12-29 14:47] VITALS: BP 123/64; PULSE 101; RESP 20
[2018-12-29] MEDS ORDERED: CEFTRIAXONE 2 GM/50 ML (PMX) 100 ML IVPB SCH (15:30)
--- NOTE | 2018-12-29 16:35 | PDOCDIS ---
Discharge Instructions DIAGNOSIS Discharge Diagnosis 1. Acute on chronic right diabetic foot ulcer s/p debridement and skin flap 12/24 2. Acute on chronic osteomyelitis 3. Diabetes mellitus 4. Acute renal insufficiency- resolved 5. Hypothyroidism 6. History of depression 7. Hypertension CONDITION [id number] Patient Condition: [id number] Stable HOME CARE INSTRUCTIONS: [id number] Diet Instructions: [id number] Low Fat /Cholesterol [id number] Special Diet: [id number] low carb, low sugar FOLLOW UP/APPOINTMENTS Follow-up Plan 1. Follow up with your primary care physician in 1-2 weeks 2. Follow up with Podiatry as recommended for continued monitoring and wound care of your right foot 3. You will need to continue on 6 weeks total of IV antibiotics. Case manage ment made arrangements for home health nurses for PICC line care and to teach you how to administer his IV antibiotics 4. Your diabetes medications were adjusted for better sugar control. Continue Metformin and Jardiance daily was added. Your Basaglar was increased to 48 units and Insulin with meals 24 units. Continue avoiding foods high in processed sugars and carbohydrates. Optimal sugar control will ensure proper wound healing 5. You were not given Lisinopril during your hospitalization since your blood pressure was running on the low side. Continue monitoring your blood pressure and discuss with your primary care physician restarting medications if needed 6. Continue to keep site of rash clean and dry and apply ointment twice a day. If needed take Benadryl for itching but do not drive if causes drowsiness 7. Follow up with Dr. Sullivan in 2 weeks for continued monitoring of your antibiotics 8. If experiencing any concerning symptoms, please go to the nearest emergency department for evaluation REFERRALS Other Referrals Yuriy Sullivan MD Specialty Infectious Disease Comments Office Address [address] [place] [address] Office JR FALCON MD Dec 29, 2018 16:35
--- NOTE | 2018-12-29 16:46 | CONS ---
Assessment/Plan Assessment/Plan Hospital Course (Demo Recall) Alert feels good looks comfortable no fevers Microbiology: Blood culture on admission grew MSSA. Wound culture growing oxacillin sensitive staph aureus, strep and coag negative staph species. Patho + acute on chronic OM Antimicrobials: IV vancomycin and Rocephin Physical examination: This is a morbidly obese well-developed middle-aged white man who is alert in no distress. Head atraumatic normocephalic neck is supple chest rise symmetrical breath sounds diminished bases heart: S1-S2 abdomen soft bowel sounds present. Extremities with right foot dressing intact, wound VAC present. Assessment: 1. Right foot cellulitis/OM/abscess, status post I&D 2. Oxacillin sensitive staph aureus bacteremia secondary to above 2. Diabetes 3. Acute possibly on chronic kidney disease 4. Morbid obesity 5. Charcot foot Plan: Patient remains stable, anticipate discharge on IV vancomycin for 6 weeks, follow with podiatry outpatient, follow with Dr. Sullivan in the office as needed, PICC line in place. Monitor renal function closely while on vancomycin Consultation Date/Type/Reason Admit Date/Time Dec 23, 2018 at 19:59 Initial Consult Date Type of Consult id Requesting Provider: AVERY HUSSEIN Date/Time of Note DATE: 12/29/18 TIME: 16:44 Exam/Review of Systems Exam Vitals Vital Signs Date Temp Pulse Resp B/P (MAP) Pulse Ox O2 O2 Flow FiO2 Time Delivery Rate 12/29/18 98.3 101 20 123/64 96 14:47 (83) 12/27/18 Room Air 14:00 Intake and Output 12/28/18 12/28/18 12/29/18 1515:00 23:00 07:00 IntakeIntake Total 1210 ml 500 ml 250 ml OutputOutput Total 1700 ml BalanceBalance -490 ml 500 ml 250 ml Results Result Diagram: 12/29/18 0424 12/29/18 0424 Results 24hrs Laboratory Tests Test 12/28/18 17:04 12/28/18 20:57 12/29/18 04:24 12/29/18 06:51 Bedside Glucose 136 136 122 White Blood Count 13.6 #H Red Blood Count 4.97 Hemoglobin 11.9 L Hematocrit 39.1 L Mean Corpuscular Volume 78.7 L Mean Corpuscular 23.9 L Hemoglobin Mean Corpuscular 30.4 L Hemoglobin Concent Red Cell Distribution 15.7 H Width Platelet Count 133 L Mean Platelet Volume Immature Granulocytes % 1.300 H Neutrophils % 71.9 Lymphocytes % 21.0 Monocytes % 5.6 Eosinophils % 0.1 Basophils % 0.1 Nucleated Red Blood 0.0 Cells % Immature Granulocytes # 0.180 H Neutrophils # 9.8 H Lymphocytes # 2.9 Monocytes # 0.8 Eosinophils # 0.0 Basophils # 0.0 Nucleated Red Blood 0.0 Cells # Sodium Level 139 Potassium Level 3.8 Chloride Level 104 Carbon Dioxide Level 25 Anion Gap 10 Blood Urea Nitrogen 26 H Creatinine 1.07 Est Glomerular Filtrat > 60 Rate mL/min Glucose Level 118 # Calcium Level 9.1 Phosphorus Level 5.1 H Magnesium Level 2.1 Test 12/29/18 08:46 12/29/18 12:42 Bedside Glucose 131 126 Medications Medication Current Medications IV Flush (NS 3 ml) 3 ml PER PROTOCOL IV ; Start 12/24/18 at 02:00 Ondansetron HCl (Zofran Inj) 4 mg Q6H PRN IV NAUSEA/VOMITING; Start 12/24/18 at 02:00 Acetaminophen (Tylenol Tab) 650 mg Q6H PRN PO .PAIN 1-3 OR TEMP; Start 12/24/18 at 02:00 Acetaminophen/ Hydrocodone Bitart ([place] (5/325)) 1 tab Q6H PRN PO .MOD PAIN 4- 6 Last administered on 12/24/18at 07:29; Admin Dose 1 TAB; Start 12/24/18 at 02:00 Albuterol/ Ipratropium (Duoneb) 3 ml Q2H RESP THERAPY PRN HHN SHORTNESS OF BREATH; Start 12/24/18 at 02:00 Duloxetine HCl (Cymbalta) 60 mg DAILY PO Last administered on 12/29/18 08:54; Admin Dose 60 MG; Start 12/24/18 at 09:00 Levothyroxine Sodium (Synthroid) 50 mcg QAM PO Last administered on 12/29/18at 08:54; Admin Dose 50 MCG; Start 12/24/18 at 09:00 Rivaroxaban (Xarelto) 20 mg WITH DINNER PO Last administered on 12/28/18at 17:15; Admin Dose 20 MG; Start 12/24/18 at 17:35 Vancomycin HCl (Vanco Iv Per Pharmacy) VANCOMYCIN PER PHARMACY PER PROTOCOL XX ; Start 12/24/18 at 09:00 Diagnostic Test (Pha) (Accu-Chek) 1 ea 02 XX Last administered on 12/26/18at 01:52; Admin Dose 1 EA; Start 12/24/18 at 02:00 Insulin Aspart (Novolog Insulin Pen) NOVOLOG *MODERATE* ALGORITHM WITH MEALS BEDTIME SC Last administered on 12/28/18at 12:40; Admin Dose 4 UNIT; Start 12/24/18 at 07:35 Miscellaneous Information 1 ea NOTE XX ; Start 12/24/18 at 03:30 Glucose (Glutose) 15 gm Q15M PRN PO DECREASED GLUCOSE; Start 12/24/18 at 03:30 Glucose (Glutose) 22.5 gm Q15M PRN PO DECREASED GLUCOSE; Start 12/24/18 at 03:30 Dextrose (D50w Syringe) 25 ml Q15M PRN IV DECREASED GLUCOSE; Start 12/24/18 at 03:30 Dextrose (D50w Syringe) 50 ml Q15M PRN IV DECREASED GLUCOSE; Start 12/24/18 at 03:30 Glucagon (Glucagen) 1 mg Q15M PRN IM DECREASED GLUCOSE; Start 12/24/18 at 03:30 Glucose (Glutose) 15 gm Q15M PRN BUCCAL DECREASED GLUCOSE; Start 12/24/18 at 03:30 Miscellaneous Information ([facility]) This patient chambers... PRN PRN XX WOUND CARE; Start 12/24/18 at 05:30 Povidone Iodine (Povidone-Iodine) 1 applic BID TOP Last administered on 12/28/18at 21:00; Admin Dose 1 APPLIC; Start 12/24/18 at 11:00 Zolpidem Tartrate (Ambien) 10 mg HS PRN PO INSOMNIA Last administered on 12/29/18 00:20; Admin Dose 10 MG; Start 12/24/18 at 09:30 Empaglifozin (Jardiance) 25 mg DAILY@08 PO Last administered on 12/29/18at 08:54; Admin Dose 25 MG; Start 12/25/18 at 08:00 Lorazepam (Ativan) 1 mg HS PRN PO ANXIETY Last administered on 12/29/18at 00:21; Admin Dose 1 MG; Start 12/25/18 at 00:30 Metformin HCl (Glucophage) 1,000 mg BID WITH MEALS PO Last administered on 08:54; Admin Dose 1,000 MG; Start 12/25/18 at 17:35 Miscellaneous Information (* Miscellaneous Pharmacy Order) 1 ea ONCE SC ; Start 12/26/18 at 14:00; Status UNV Docusate Sodium (Colace) 100 mg BID PO Last administered on 12/27/18 08:27; Admin Dose 100 MG; Start 12/26/18 at 13:30 Insulin Aspart (Novolog Insulin Pen) 24 unit WITH MEALS SC Last administered on 12/29/18 12:47; Admin Dose 24 UNIT; Start 12/26/18 at 17:35 Insulin Glargine (Lantus) 48 units HS SC Last administered on 12/28/18 20:59; Admin Dose 48 UNITS; Start 12/26/18 at 21:00 Vancomycin/Sodium Chloride 250 ml @ 83.333 mls/ hr Q12H IVPB Last administered on 12/29/18 08:55; Admin Dose 83.333 MLS/HR; Start 12/28/18 at 09:00 Clotrimazole (Lotrimin Cr) 1 applic BID TOP Last administered on 12/29/18 08:55; Admin Dose 1 APPLIC; Start 12/28/18 at 14:00 Ceftriaxone Sodium 100 ml @ 100 mls/hr Q24H IVPB Last administered on 12/29/18 15:04; Admin Dose 100 MLS/HR; Start 12/29/18 at 15:30; Stop 02/07/19 at 15:29 IV Flush (NS 10 ml) 10 ml Q8 PRN IV IV PROTOCOL; Start 12/28/18 at 17:00 Miscellaneous Information (*Rx Drug Level Order Reminder*) VANCOMYCIN TROUGH 12/30 AT 0800 0800 ONCE XX ; Start 12/30/18 at 08:00; Stop 12/30/18 at 08:01 Diphenhydramine HCl (Benadryl) 50 mg Q4H PRN IV pruritus Last administered on 12/29/18 13:09; Admin Dose 50 MG; Start 12/29/18 at 13:00 ANTON QUINTERO NP Dec 29, 2018 16:46
[2018-12-29] MEDS: RIVAROXABAN 20 MG TABLET PO SCH (17:26)
--- NOTE | 2018-12-29 17:55 | CONS ---
Assessment/Plan Assessment/Plan Problems: (1) Type 2 diabetes mellitus with hyperglycemia Status: Chronic Comment: Excellent glycemic control. Would cont. current medication and insulin regimen after d/c. Qualifiers: Diabetes mellitus rn long term care insulin use: with jail use Qualified Codes: E11.65 - Type 2 diabetes mellitus with hyperglycemia; Z79.4 - manager terminal (current) use of insulin Consultation Date/Type/Reason Admit Date/Time Dec 23, 2018 at 19:59 Initial Consult Date 12/25/18 Type of Consult Endocrinology Reason for Consultation T2DM management Requesting Provider: AVERY HUSSEIN Date/Time of Note DATE: 12/29/18 TIME: 17:54 24 HR Interval Summary Constitutional: no complaints, improved Detailed Summary Respiratory: no complaints Cardiovascular: no complaints Gastrointestinal: no complaints Genitourinary: no complaints Musculoskeletal: no complaints Neurologic: no complaints Exam/Review of Systems Exam Vitals VS - Last 72 Hours, by Label Date Temp Pulse Resp B/P (MAP) Pulse Ox O2 O2 Flow FiO2 Time Delivery Rate 12/29/18 98.3 101 20 123/64 96 14:47 (83) 12/29/18 97.5 76 18 115/73 97 08:04 (87) 12/29/18 98.3 76 17 101/63 98 02:14 (76) 12/28/18 97.6 98 18 117/68 99 13:27 (84) 12/28/18 98.0 91 18 116/65 96 08:09 (82) 12/28/18 98.1 93 18 131/73 99 01:42 (92) 12/27/18 98.7 109 17 131/94 99 20:37 (106) 12/27/18 97.4 68 18 111/79 94 Room Air 14:00 (90) 12/27/18 97.5 68 18 99/69 (79) 95 Room Air 07:48 12/27/18 97.8 97 18 96/57 (70) 93 02:00 12/26/18 97.8 88 18 101/55 98 20:03 (70) Vital Signs Date Temp Pulse Resp B/P (MAP) Pulse Ox O2 O2 Flow FiO2 Time Delivery Rate 12/29/18 98.3 101 20 123/64 96 14:47 (83) 12/27/18 Room Air 14:00 Intake and Output 12/28/18 12/28/1819 1414:59 22:59 06:59 IntakeIntake Total 1210 ml 500 ml 250 ml OutputOutput Total 1700 ml BalanceBalance -490 ml 500 ml 250 ml Constitutional: alert, oriented, obese Psych: no complaints, nl mood/affect Respiratory: clear to auscultation, normal air movement Cardiovascular: regular rate and rhythm, nl pulses; No edema, No murmurs/extra sounds, No rub Gastrointestinal: soft, nl liver, spleen, non-tender, bowel sounds; No mass, No rebound or guarding Musculoskeletal: No nl extremities to inspection (RLE wrapped) Extremities: No cyanosis, No clubbing, No edema Neurological: MANDARIN [employer] II-XII intact, nl mental status, nl speech, nl strength Additional Comments Bedside Glucose - 72 Hours Test 12/26/18 20:48 12/27/18 08:09 12/27/18 12:20 12/27/18 15:00 Bedside 176 157 169 176 Glucose mg/dL (70-220) mg/dL (70-220) mg/dL (70-220) mg/dL (70-220) Test 12/27/18 17:07 12/27/18 20:54 12/28/18 08:27 12/28/18 12:27 Bedside 133 176 230 201 Glucose mg/dL (70-220) mg/dL (70-220) mg/dL (70-220) mg/dL (70-220) H Test 12/28/18 17:04 12/28/18 20:57 12/29/18 06:51 12/29/18 08:46 Bedside 136 136 122 131 Glucose mg/dL (70-220) mg/dL (70-220) mg/dL (70-220) mg/dL (70-220) Test 12/29/18 12:42 12/29/18 17:06 Bedside 126 89 Glucose mg/dL (70-220) mg/dL (70-220) Results Result Diagram: 12/29/18 0424 12/29/18 0424 Results 24hrs Laboratory Tests Test 12/28/18 20:57 12/29/18 04:24 12/29/18 06:51 12/29/18 08:46 Bedside Glucose 136 122 131 White Blood Count 13.6 #H Red Blood Count 4.97 Hemoglobin 11.9 L Hematocrit 39.1 L Mean Corpuscular Volume 78.7 L Mean Corpuscular 23.9 L Hemoglobin Mean Corpuscular 30.4 L Hemoglobin Concent Red Cell Distribution 15.7 H Width Platelet Count 133 L Mean Platelet Volume Immature Granulocytes % 1.300 H Neutrophils % 71.9 Lymphocytes % 21.0 Monocytes % 5.6 Eosinophils % 0.1 Basophils % 0.1 Nucleated Red Blood 0.0 Cells % Immature Granulocytes # 0.180 H Neutrophils # 9.8 H Lymphocytes # 2.9 Monocytes # 0.8 Eosinophils # 0.0 Basophils # 0.0 Nucleated Red Blood 0.0 Cells # Sodium Level 139 Potassium Level 3.8 Chloride Level 104 Carbon Dioxide Level 25 Anion Gap 10 Blood Urea Nitrogen 26 H Creatinine 1.07 Est Glomerular Filtrat > 60 Rate mL/min Glucose Level 118 # Calcium Level 9.1 Phosphorus Level 5.1 H Magnesium Level 2.1 Test 12/29/18 12:42 12/29/18 17:06 Bedside Glucose 126 89 Medications Medication Current Medications IV Flush (NS 3 ml) 3 ml PER PROTOCOL IV ; Start 12/24/18 at 02:00 Ondansetron HCl (Zofran Inj) 4 mg Q6H PRN IV NAUSEA/VOMITING; Start 12/24/18 at 02:00 Acetaminophen (Tylenol Tab) 650 mg Q6H PRN PO .PAIN 1-3 OR TEMP; Start 12/24/18 at 02:00 Acetaminophen/ Hydrocodone Bitart ([place] (5/325)) 1 tab Q6H PRN PO .MOD PAIN 4- 6 Last administered on 12/24/18at 07:29; Admin Dose 1 TAB; Start 12/24/18 at 02:00 Albuterol/ Ipratropium (Duoneb) 3 ml Q2H RESP THERAPY PRN HHN SHORTNESS OF BREATH; Start 12/24/18 at 02:00 Duloxetine HCl (Cymbalta) 60 mg DAILY PO Last administered on 12/29/18at 08:54; Admin Dose 60 MG; Start 12/24/18 at 09:00 Levothyroxine Sodium (Synthroid) 50 mcg QAM PO Last administered on 12/29/18at 08:54; Admin Dose 50 MCG; Start 12/24/18 at 09:00 Rivaroxaban (Xarelto) 20 mg WITH DINNER PO Last administered on 12/29/18at 17:26; Admin Dose 20 MG; Start 12/24/18 at 17:35 Vancomycin HCl (Vanco Iv Per Pharmacy) VANCOMYCIN PER PHARMACY PER PROTOCOL XX ; Start 12/24/18 at 09:00 Diagnostic Test (Pha) (Accu-Chek) 1 ea 02 XX Last administered on 12/26/18at 01:52; Admin Dose 1 EA; Start 12/24/18 at 02:00 Insulin Aspart (Novolog Insulin Pen) NOVOLOG *MODERATE* ALGORITHM WITH MEALS BEDTIME SC Last administered on 12/28/18at 12:40; Admin Dose 4 UNIT; Start 12/24/18 at 07:35 Miscellaneous Information 1 ea NOTE XX ; Start 12/24/18 at 03:30 Glucose (Glutose) 15 gm Q15M PRN PO DECREASED GLUCOSE; Start 12/24/18 at 03:30 Glucose (Glutose) 22.5 gm Q15M PRN PO DECREASED GLUCOSE; Start 12/24/18 at 03:30 Dextrose (D50w Syringe) 25 ml Q15M PRN IV DECREASED GLUCOSE; Start 12/24/18 at 03:30 Dextrose (D50w Syringe) 50 ml Q15M PRN IV DECREASED GLUCOSE; Start 12/24/18 at 03:30 Glucagon (Glucagen) 1 mg Q15M PRN IM DECREASED GLUCOSE; Start 12/24/18 at 03:30 Glucose (Glutose) 15 gm Q15M PRN BUCCAL DECREASED GLUCOSE; Start 12/24/18 at 03:30 Miscellaneous Information (Pending [facility] Order For Wound Care) This patient h a... PRN PRN XX WOUND CARE; Start 12/24/18 at 05:30 Povidone Iodine (Povidone-Iodine) 1 applic BID TOP Last administered on 12/28/18at 21:00; Admin Dose 1 APPLIC; Start 12/24/18 at 11:00 Zolpidem Tartrate (Ambien) 10 mg HS PRN PO INSOMNIA Last administered on 12/29/18at 00:20; Admin Dose 10 MG; Start 12/24/18 at 09:30 Empaglifozin (Jardiance) 25 mg DAILY@08 PO Last administered on 12/29/18at 08:54; Admin Dose 25 MG; Start 12/25/18 at 08:00 Lorazepam (Ativan) 1 mg HS PRN PO ANXIETY Last administered on 12/29/18 00:21; Admin Dose 1 MG; Start 12/25/18 at 00:30 Metformin HCl (Glucophage) 1,000 mg BID WITH MEALS PO Last administered on 12/29/18 17:26; Admin Dose 1,000 MG; Start 12/25/18 at 17:35 Miscellaneous Information (* Miscellaneous Pharmacy Order) 1 ea ONCE SC ; Start 12/26/18 at 14:00; Status UNV Docusate Sodium (Colace) 100 mg BID PO Last administered on 12/27/18 08:27; Admin Dose 100 MG; Start 12/26/18 at 13:30 Insulin Aspart (Novolog Insulin Pen) 24 unit WITH MEALS SC Last administered on 12/29/18 17:29; Admin Dose 24 UNIT; Start 12/26/18 at 17:35 Insulin Glargine (Lantus) 48 units HS SC Last administered on 12/28/18 20:59; Admin Dose 48 UNITS; Start 12/26/18 at 21:00 Vancomycin/Sodium Chloride 250 ml @ 83.333 mls/ hr Q12H IVPB Last administered on 12/29/18 08:55; Admin Dose 83.333 MLS/HR; Start 12/28/18 at 09:00 Clotrimazole (Lotrimin Cr) 1 applic BID TOP Last administered on 12/29/18 08:55; Admin Dose 1 APPLIC; Start 12/28/18 at 14:00 IV Flush (NS 10 ml) 10 ml Q8 PRN IV IV PROTOCOL; Start 12/28/18 at 17:00 Miscellaneous Information (*Rx Drug Level Order Reminder*) VANCOMYCIN TROUGH 12/30 AT 0800 0800 ONCE XX ; Start 12/30/18 at 08:00; Stop 12/30/18 at 08:01 Diphenhydramine HCl (Benadryl) 50 mg Q4H PRN IV pruritus Last administered on 12/29/18 13:09; Admin Dose 50 MG; Start 12/29/18 at 13:00 MICHAEL MIXON MD Dec 29, 2018 17:55
--- NOTE | 2018-12-29 19:34 | DS ---
Date/Time of Note Date/Time of Note DATE: 12/29/18 TIME: 19:32 Discharge Summary Admission/Discharge Info Admit Date/Time Dec 23, 2018 at 19:59 Discharge Date/Time 12/29/18 Discharge Diagnosis 1. Acute on chronic right diabetic foot ulcer s/p debridement and skin flap 12/24 2. Acute on chronic osteomyelitis 3. Diabetes mellitus 4. Acute renal insufficiency- resolved 5. Hypothyroidism 6. History of depression 7. Hypertension Patient Condition: Stable Consults Podiatry- Dr. Cooper/Jonn Infectious disease- Dr. Sullivan Endocrinology- Dr. Mcfarlane Procedures DATE OF OPERATION: 12/24/2018 SURGEON: Rj Lunsford DPM DEEP TISSUE MASSAGE THERAPIST: Virgilio Cooper DPM PREOPERATIVE DIAGNOSES: 1. Right foot abscess. 2. Right foot diabetic foot ulceration. 3. Diabetes type 2, peripheral neuropathy. 4. History of osteomyelitis fifth metatarsal. 5. Charcot foot. 6. Varus deformity, right foot. 7. History of fifth metatarsal head resection. 8. Thrombocytopenia. POSTOPERATIVE DIAGNOSES: 1. Right foot abscess. 2. Right foot diabetic foot ulceration. 3. Diabetes type 2, peripheral neuropathy. 4. History of osteomyelitis fifth metatarsal. 5. Charcot foot. 6. Varus deformity, right foot. 7. History of fifth metatarsal head resection. 8. Thrombocytopenia. PROCEDURES PERFORMED: 1. Right foot incision and drainage. 2. Bone biopsy fifth metatarsal. 3. Local rotation with advancement flap closure. 4. Abductor minimus digiti muscle flap. 5. Application of wound VAC. Hx of Present Illness Patient is is a 43-year-old morbidly obese male with a history of hypertension, diabetes, hypothyroidism, Charcot foot, bilateral foot ulcer with a history of right foot debridement and skin graft. Patient presented to ER complaining of worsening right foot ulcer. He reports that wound has been draining pus. He said he follows up closely with his multicraft operator, Dr. Lunsford. He was seen yesterday and was prescribed antibiotic. He was also seen in the ER by him. Who presents the ER, he was tachycardic with a heart rate of 120. Labs shows a WBC of 16,000. x-ray shows the followin. 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 No significant interval change. 2. Diffuse soft tissue edema. Hospital Course Patient was admitted for evaluation and treatment of right foot ulcer. Podiatry was consulted and patient underwent debridement and skin flap placement. ID was consulted for antibiotics recommendations and management. He was also seen by Endocrinology for assistance with glucose control. Patients wound culture results Staph aureus and he was continued on IV Vancomycin and Rocephin. Bone biopsies obtained during surgical intervention were positives for osteomyelitis and HH arrangements for 6 weeks of IV antibiotics were made. Patients diabetes medication regime was adjusted with increased in his Basaglar to 48 and Novolog 24 with meals in addition to Jardiance being added daily. His sugars were well controlled on new regime and recommendations for continuation of medications were reinforced. Patient was instructed to remain NWB RLE and cleared for discharge with outpatient Podiatry follow up. Patients home antibiotics were arranged and vitals remained stable. Patient was discharged home in stable condition. Of note, during his hospitalization, he developed tinea cruris which improved after started on Clotrimazole cream which was continued after dischar ge. Home Meds Active Scripts Clotrimazole (Clotrim) 15 Gm Cr, 1 APPLIC TOP BID for 30 Days, #1 TUB Prov:JR FALCON MD 12/29/18 Empagliflozin (Jardiance) 10 Mg Tablet, 25 MG PO DAILY@08 for 30 Days, #30 TAB Prov:JR FALCON MD 12/29/18 Insulin Glargine,Hum.rec.anlog (Basaglar Kwikpen U-100) 100 Unit/1 Ml Insuln.pen, 48 UNIT SC QHS for 30 Days, #25 EA Prov:JR FALCON MD 12/29/18 Insulin Aspart* (Novolog Insulin Pen*) 100 Unit/Ml Soln, 24 UNIT SC WITH MEALS for 30 Days, #10 EA Prov:JR FALCON MD 12/29/18 Reported Medications Lorazepam* (Lorazepam*) 1 Mg Tablet, 1 MG PO QHS TAKE 1 TABLET BY MOUTH AT BEDTIME 09/04/18 Levothyroxine Sodium* (Levothyroxine Sodium*) 50 Mcg Tablet, 50 MCG PO QAM for 90 Days, #90 TAKE 1 TABLET BY MOUTH EVERY DAY 09/04/18 Rivaroxaban* (Xarelto*) 20 Mg Tablet, 20 MG PO DAILY for 30 Days, #30 09/04/18 Duloxetine Hcl* (Cymbalta*) 60 Mg Capsule.dr, 60 MG PO DAILY, CAP 09/04/18 Metformin* (Glucophage*) 1,000 Mg Tablet, 1000 MG PO BID WITH MEALS 11/18/12 Zolpidem Tartrate* (Zolpidem Tartrate*) 10 Mg Tablet, 10 MG PO HS 11/18/12 Discontinued Reported Medications Lisinopril* (Lisinopril*) 20 Mg Tablet, 20 MG PO DAILY, #30 TAB 09/04/18 Sitagliptin* (Januvia*) 100 Mg Tablet, 100 MG PO DAILY for 30 Days, #30 TAKE 1 TABLET BY MOUTH EVERY DAY 09/04/18 Discontinued Scripts Vancomycin HCl (Vancomycin HCl) 1 Gm Vial, 1 GM IV .PHARMACY for 28 Days, VIAL Prov:ANDREW ISABEL Arline V BELT SKIVER 09/07/18 Follow-up Plan 1. Follow up with your primary care physician in 1-2 weeks 2. Follow up with Podiatry as recommended for continued monitoring and wound care of your right foot 3. You will need to continue on 6 weeks total of IV antibiotics. Case management made arrangements for home health nurses for PICC line care and to teach you how to administer his IV antibiotics 4. Your diabetes medications were adjusted for better sugar control. Continue Metformin and Jardiance daily was added. Your Basaglar was increased to 48 units and Insulin with meals 24 units. Continue avoiding foods high in processed sugars and carbohydrates. Optimal sugar control will ensure proper wound healing 5. You were not given Lisinopril during your hospitalization since your blood pressure was running on the low side. Continue monitoring your blood pressure and discuss with your primary care physician restarting medications if needed 6. Continue to keep site of rash clean and dry and apply ointment twice a day. If needed take Benadryl for itching but do not drive if causes drowsiness 7. Follow up with Dr. Sullivan in 2 weeks for continued monitoring of your antibiotics 8. If experiencing any concerning symptoms, please go to the nearest emergency department for evaluation Primary Care Provider Dhiraj Plunkett MD Time spent on discharge: > 30 minutes Pending Labs Laboratory Tests Test 12/28/18 20:57 12/29/18 04:24 12/29/18 06:51 12/29/18 08:46 Bedside 136 122 131 Glucose mg/dL (70-220) mg/dL (70-220) mg/dL (70-220) White Blood 13.6 Count 10^3/ul (4.8-1 0.8) Red Blood 4.97 Count 10^6/ul (4.70- 6.10) Hemoglobin 11.9 g/dl (14.0-18. 0) Hematocrit 39.1 % (42.0-52.0) Mean 78.7 Corpuscular fl (82.0-101.0 Volume ) Mean 23.9 Corpuscular pg (29.0-33.0) Hemoglobin Mean 30.4 Corpuscular g/dl (32.0-37. Hemoglobin Conc 0) ent Red Cell 15.7 Distribution % (11.5-14.5) Width Platelet Count 133 10^3/UL (140-4 15) Mean Platelet fl (7.4-10.4) Volume Immature 1.300 Granulocytes % % (0.001-0.429 ) Neutrophils % 71.9 % (39.0-77.0) Lymphocytes % 21.0 % (15.0-51.0) Monocytes % 5.6 % (0.0-11.0) Eosinophils % 0.1 % (0.0-7.0) Basophils % 0.1 % (0.0-2.0) Nucleated Red 0.0 Blood Cells % /100WBC (0.0-0 .0) Immature 0.180 Granulocytes # 10^3/ul (0.0-0 .031) Neutrophils # 9.8 10^3/ul (1.6-7 .5) Lymphocytes # 2.9 10^3/ul (0.8-2 .9) Monocytes # 0.8 10^3/ul (0.3-0 .9) Eosinophils # 0.0 10^3/ul (0.0-0 .5) Basophils # 0.0 10^3/ul (0.0-0 .1) Nucleated Red 0.0 Blood Cells # 10^3/ul (0.0-0 .0) Sodium Level 139 mmol/L (135-14 4) Potassium 3.8 Level mmol/L (3.5-5. 1) Chloride Level 104 mmol/L (97-110 ) Carbon Dioxide 25 Level mmol/L (21-31) Anion Gap 10 (5-13) Blood Urea 26 Nitrogen mg/dl (7-20) Creatinine 1.07 mg/dl (0.61-1. 24) Est Glomerular > 60 Filtrat mL/min (>60) Rate mL/min Glucose Level 118 mg/dl (70-220) Calcium Level 9.1 mg/dl (8.4-10. 2) Phosphorus 5.1 Level mg/dl (2.5-4.9 ) Magnesium 2.1 Level mg/dl (1.7-2.5 ) Test 12/29/18 12:42 12/29/18 17:06 Bedside 126 89 Glucose mg/dL (70-220) mg/dL (70-220) JR FALCON MD Dec 29, 2018 19:34
[2018-12-29] MEDS: INSULIN GLARGINE [LANTus] (100 UNITS/ML) SYG SC SCH (20:01)
[2018-12-29 20:36] VITALS: BP 104/68; PULSE 96; RESP 19
== END 2018-12-29 23:00 | disposition home health service (06) | DRG 854 ==
LOC: FTE 15:12 → MS3 19:59
PROVIDERS: ADMIT Internal Medicine; ATTEND Internal Medicine
PROC: 0LXV0ZZ Transfer Right Foot Tendon, Open Approach (ICD-10-PCS; 2018-12-24)
PROC: 0QBN0ZX Excision of Right Metatarsal, Open Approach, Diagnostic (ICD-10-PCS; 2018-12-24)
PROC: 3E10X8Z Irrigation of Skin and Mucous Membranes using Irrigating Substance (ICD-10-PCS; 2018-12-24)
PROC: 30233K1 Transfusion of Nonautologous Frozen Plasma into Peripheral Vein, Percutaneous Approach (ICD-10-PCS; 2018-12-24)
PROC: 0LSV0ZZ Reposition Right Foot Tendon, Open Approach (ICD-10-PCS; principal; 2018-12-24 17:00)
DX: A41.9 Sepsis, unspecified organism (principal); N17.9 Acute kidney failure, unspecified; L03.115 Cellulitis of right lower limb; Z68.43 Body mass index [BMI] 50.0-59.9, adult; M86.171 Other acute osteomyelitis, right ankle and foot; D69.6 Thrombocytopenia, unspecified; E11.621 Type 2 diabetes mellitus with foot ulcer; E11.610 Type 2 diabetes mellitus with diabetic neuropathic arthropathy; E11.628 Type 2 diabetes mellitus with other skin complications; E66.01 Morbid (severe) obesity due to excess calories; E03.9 Hypothyroidism, unspecified; I10 Essential (primary) hypertension; B95.61 Methicillin susceptible Staphylococcus aureus infection as the cause of diseases classified elsewhere; B95.1 Streptococcus, group B, as the cause of diseases classified elsewhere; Z79.4 Long term (current) use of insulin
CPT/HCPCS: 36415; 36430; 36569; 71045; 73630; 76937; 80048; 80053; 80202; 81003; 82962; 83036; 83605; 83735; 84100; 84145; 85025; 85610; 85651; 85730; 86140; 86850; 86900; 86901; 87070; 87075; 87086; 87102; 87116; 88305; 88311; 93005; 96374; 96375; J0360; J0690; J0692; J0696; J1100; J1170; J1200; J1815; J2250; J2405; J2543; J2765; J2920; J3010; J3370; J3475; P9059

== ENCOUNTER 2019-01-05 09:01 | Emergency (ER) | payer OTHER ==
[~2019-01-05] VITALS: Ht 165.1 cm; Wt 142.7 kg
[~2019-01-05 09:01] MED LIST changes: -SITA100T11 PO; -VANC1VIA2 IV
[2019-01-05 09:05] VITALS: Ht 165.1 cm; Wt 142.7 kg
[2019-01-05] MEDS ORDERED: HYDROmorphONE 2 MG/ML SYG IV STA ×2 (09:19→11:02)
[2019-01-05] MEDS ORDERED: ONDANSETRON 4 MG INJ IV STA (09:19)
--- NOTE | 2019-01-05 12:11 | ERD ---
ER Documentation Chief Complaint Chief Complaint picc line has rash, left leg cramping has been receiving vacomycin HPI Patient is a 43-year-old male with diabetes who presents with PICC line irritation. The patient said that he has right-sided arm rash around the PICC line site insertion. He has left leg cramping as well. He has dry mouth. He is currently on vancomycin and Rocephin for a right sided diabetic foot ulcer and that this is his "15th PICC line". He says that he is supposed to be on antibiotics until February 04. He does not have any fevers at this time. Upon review of old medical record the patient has multiple visits for various. ROS All systems reviewed and are negative except as per history of present illness. Medications Home Meds Active Scripts Clotrimazole (Clotrim) 15 Gm Cr, 1 APPLIC TOP BID for 30 Days, #1 TUB Prov:JR FALCON MD 12/29/18 Empagliflozin (Jardiance) 10 Mg Tablet, 25 MG PO DAILY@08 for 30 Days, #30 TAB Prov:JR FALCON MD 12/29/18 Insulin Aspart* (Novolog Insulin Pen*) 100 Unit/Ml Soln, 24 UNIT SC WITH MEALS for 30 Days, #10 EA Prov:JR FALCON MD 12/29/18 Reported Medications Lisinopril* (Lisinopril*) 20 Mg Tablet, 20 MG PO DAILY, #30 TAB 01/05/19 Ascorbic Acid* (Vitamin C*) 500 Mg Capsule.sa, 1000 MG PO DAILY, CAP 01/05/19 Zolpidem Tartrate* (Zolpidem Tartrate*) 10 Mg Tablet, 10 MG PO QHS PRN for INSOMNIA, #30 TAB 01/05/19 Metoprolol Tartrate* (Lopressor*) 25 Mg Tab, 25 MG PO BID, #60 TAB 01/05/19 Insulin Glargine,Hum.rec.anlog (Basaglar Kwikpen U-100) 100 Unit/1 Ml Insuln.pen, 46 UNIT SC QHS, EA 01/05/19 Lorazepam* (Lorazepam*) 1 Mg Tablet, 1 MG PO QHS TAKE 1 TABLET BY MOUTH AT BEDTIME 09/04/18 Levothyroxine Sodium* (Levothyroxine Sodium*) 50 Mcg Tablet, 50 MCG PO QAM for 90 Days, #90 TAKE 1 TABLET BY MOUTH EVERY DAY 09/04/18 Rivaroxaban* (Xarelto*) 20 Mg Tablet, 20 MG PO DAILY for 30 Days, #30 09/04/18 Duloxetine Hcl* (Cymbalta*) 60 Mg Capsule.dr, 60 MG PO DAILY, CAP 09/04/18 Discontinued Reported Medications Metformin* (Glucophage*) 1,000 Mg Tablet, 1000 MG PO BID WITH MEALS 11/18/12 Zolpidem Tartrate* (Zolpidem Tartrate*) 10 Mg Tablet, 10 MG PO HS 11/18/12 Lisinopril* (Lisinopril*) 20 Mg Tablet, 20 MG PO DAILY, #30 TAB 09/04/18 Discontinued Scripts Insulin Glargine,Hum.rec.anlog (Basaglar Kwikpen U-100) 100 Unit/1 Ml Insuln.pen, 48 UNIT SC QHS for 30 Days, #25 EA Prov:JR FALCON MD 12/29/18 Allergies Allergies: Coded Allergies: gabapentin (Verified Allergy, Severe, SUICIDAL THOUGHS, 01/05/19) morphine (Verified Allergy, Intermediate, 01/05/19) pregabalin (Verified Allergy, Mild, SUICIDAL, 01/05/19) Uncoded Allergies: LYRICA (Allergy, Intermediate, WEIGHT GAIN, 01/01/13) TEGAMYCEIN (Allergy, Mild, 11/18/12) TEGAMYCIN (Allergy, Unknown, 09/04/18) PMhx/Soc History of Surgery: Yes (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 knee unk, rt wrist unk, gastric sleeve, eye ) Anesthesia Reaction: No Hx Neurological Disorder: Yes (diabetic neuropathy) Hx Respiratory Disorders: No Hx Cardiac Disorders: Yes (Hx LLE DVT, htn, anemia) Hx Psychiatric Problems: Yes (depression, anxiety) Hx Miscellaneous Medical Probl: No Hx Alcohol Use: No Hx Substance Use: No Hx Tobacco Use: No Smoking Status: Former smoker FmHx Family History: diabetes Physical Exam Vitals Vital Signs Date Temp Pulse Resp B/P (MAP) Pulse Ox O2 O2 Flow FiO2 Time Delivery Rate 01/05/19 97.7 80 17 120/76 97 Room Air 11:16 (91) 01/05/19 97.3 112 18 151/93 98 09:05 (112) Physical Exam Const: No acute distress Head: Atraumatic Eyes: Normal Conjunctiva ENT: Normal External Ears, Nose and Mouth. Neck: Full range of motion. No meningismus. Resp: Clear to auscultation bilaterally Cardio: Regular rate and rhythm, no murmurs Abd: Soft, non tender, non distended. Normal bowel sounds Skin: Irritation and redness around the right-sided PICC line in the right upper extremity without infection Back: No midline or flank tenderness Ext: Splint to the right lower extremity Neur: Awake and alert Psych: Normal Mood and Affect Result Diagram: 01/05/1994001/05/19940 Results 24 hrs Laboratory Tests Test 01/05/19 09:41 White Blood Count 12.1 10^3/ul Red Blood Count 4.83 10^6/ul Hemoglobin 11.7 g/dl Hematocrit 39.3 % Mean Corpuscular Volume 81.4 fl Mean Corpuscular Hemoglobin 24.2 pg Mean Corpuscular Hemoglobin Concent 29.8 g/dl Red Cell Distribution Width 15.4 % Platelet Count 58 10^3/UL Mean Platelet Volume fl Immature Granulocytes % 0.800 % Neutrophils % 78.4 % Lymphocytes % 14.5 % Monocytes % 6.0 % Eosinophils % 0.1 % Basophils % 0.2 % Nucleated Red Blood Cells % 0.0 /100WBC Immature Granulocytes # 0.100 10^3/ul Neutrophils # 9.5 10^3/ul Lymphocytes # 1.8 10^3/ul Monocytes # 0.7 10^3/ul Eosinophils # 0.0 10^3/ul Basophils # 0.0 10^3/ul Nucleated Red Blood Cells # 0.0 10^3/ul Sodium Level 138 mmol/L Potassium Level 4.0 mmol/L Chloride Level 104 mmol/L Carbon Dioxide Level 25 mmol/L Anion Gap 9 Blood Urea Nitrogen 20 mg/dl Creatinine 1.06 mg/dl Est Glomerular Filtrat Rate mL/min > 60 mL/min Glucose Level 208 mg/dl Calcium Level 9.1 mg/dl Current Medications Medications Dose Sig/Jessica Start Time Status Last (Trade) Ordered Route PRN Stop Time Admin Dose Reason Admin Ondansetron 4 mg ONCE STAT 01/05/19 DC 01/05/19 HCl (Zofran IV 09:38 Inj) 01/05/19 09:21 1 mg ONCE STAT 01/05/19 DC 01/05/19 Hydromorphone IV 09:19 09:38 HCl 01/05/19 09:21 (Dilaudid) 1 mg ONCE STAT 01/05/19 DC 01/05/19 Hydromorphone IV 11:02 11:07 HCl 01/05/19 11:03 (Dilaudid) Procedures/MDM Ultrasound of the left lower extremity negative for DVT per radiology. Patient is a 43-year-old male who presents with irritation around the right arm PICC line. I do not believe that this is infection at this time. I think the best plan would be to place a midline IV which would last 30 days that he can get the rest of his IV antibiotics and remove the right-sided PICC line. The patient has basically normal laboratory studies and ultrasound of the left leg which is negative for DVT. Dr. Lunsford the patient's blanket cutting machine operator was consulted and has come to the bedside and saw the patient. He is in agreement with the plan. Departure Diagnosis: Primary Impression: Diabetic foot ulcer Diabetic foot ulcer location: unspecified part of foot Diabetes mellitus type: due to underlying condition Laterality: right Non-pressure ulcer stage: unspecified non-pressure ulcer stage Qualified Codes: E08.621 - Diabetes mellitus due to underlying condition with foot ulcer; L97.519 - Non- pressure chronic ulcer of other part of right foot with unspecified severity Additional Impression: Irritation at application site Condition: Fair Patient Instructions: Skin Ulcer, Simple Referrals: JOSÉ LUNSFORD DPM Additional Instructions: Call your primary care doctor TOMORROW for an appointment during the next 1 WEEK.Tell the manager intensive care that you were referred from this facility.See the doctor sooner or return here if your condition worsens before your appointment time. CLEMENTINA JOHNSON MD Jan 05, 2019 12:11
[2019-01-05 12:49] VITALS: BP 118/79; PULSE 87; RESP 17
--- NOTE | 2019-01-05 17:46 | CONS ---
DATE OF ADMISSION: 01/05/2019 DATE OF CONSULTATION: 01/05/2019 CHIEF COMPLAINT: Right foot ulceration. HISTORY OF PRESENT ILLNESS: This is a 43-year-old gentleman with history of osteomyelitis, status po st debridement and wound closure. He had issues with his PICC line. Also, he is having pain to the left lower extremity. He does have the splint and I was asked to evaluate. The patient did have a v enous ultrasound negative for deep vein thrombosis. Also, he has pending removal of his PICC line an d placement of midline. Denies any fever, nausea, vomiting. PAST MEDICAL HISTORY: 1. Diabetes type 2. 2. Charcot deformity bilateral. 3. Obesity. 4. History of left lower extremity DVT. 5. Hypertension. 6. Anemia. MEDICATIONS: Include: 1. Jardiance 25 mg p.o. daily. 2. Lisinopril 20 mg p.o. daily. 3. Ambien 10 mg p.o. at bedtime. 4. Metoprolol 25 mg p.o. b.i.d. 5. Lorazepam 1 mg p.o. at bedtime. 6. Synthroid 50 mcg q.a.m. 7. Xarelto 20 mg p.o. daily. 8. Cymbalta 60 mg p.o. daily. ALLERGIES: 1. GABAPENTIN. 2. MORPHINE. 3. PREGABALIN. 4. TOGAMYCIN. 5. LYRICA. 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 SOCIAL HISTORY: Former smoker. PHYSICAL EXAMINATION: VITAL SIGNS: Temperature 97.7, pulse 80, respiratory rate 17, blood pressure 120/76, pulse oximetry is 97% on room air. GENERAL: The patient is alert, oriented, in no acute distress. EXTREMITIES: He does relate pain to the left lower extremity and irritation to the right-sided PICC line. There is posterior splint present on the right lower extremity. This was removed with mild sa nguineous drainage. Sutures are present. Surgical incision is well coapted. The wound has a granul ar appearance. No evidence of tunneling or undermining. Pedal pulses are palpable bilaterally. No signs of cellulitis or lymphangitis. Bilateral varus deformities of his feet. LABORATORY DATA: WBC 12.1, hemoglobin 11.7, hematocrit 39.3, platelets 50. DIAGNOSTIC DATA: Venous ultrasound: Negative for deep vein thrombosis. ASSESSMENT: 1. Right foot diabetic foot ulceration. 2. Osteomyelitis, right foot. 3. Charcot deformity, bilateral with varus deformity. 4. Obesity. PLAN: Wounds were irrigated. Dressings are applied. I recommend to use of Cam boot. The patient i s pending midline placement. He will need continuation of his IV antibiotics until 02/04/2019. Woun ds were irrigated and dressings were changed. Dictated By: JOSÉ DE LA GARZA DPM RB/NTS Conf#: [id number] DID#: [id number] CC: CLEMENTINA JOHNSON MD;*EndCC*
== END 2019-01-05 12:50 | disposition home or self-care (01) ==
LOC: E/R 09:01
DX: L97.519 Non-pressure chronic ulcer of other part of right foot with unspecified severity (principal); I10 Essential (primary) hypertension; Y82.8 Other medical devices associated with adverse incidents; Z79.4 Long term (current) use of insulin
CPT/HCPCS: 36415; 80048; 85025; 93971; 96374; 96375; 96376; 99285; J1170; J2405